=== PATIENT | female | born 1960 | race Caucasian/White ===

== ENCOUNTER 2020-08-22 10:36 | Outpatient (REF) | payer OTHER, SELFPAY ==
[2020-08-22 14:28] LABS: Alanine Aminotransferase 26 U/L (0-31); Albumin Level 3.7 g/dL (3.5-5.0); Alkaline Phosphatase 133 U/L (39-117); Anion Gap 16 (12-20); Aspartate Amino Transferase 65 U/L (5-31); Bilirubin Total 0.6 mg/dL (0.0-1.0); Blood Urea Nitrogen 7 mg/dL (9-16); Carbon Dioxide 20 mmol/L (22-29); Chloride 103 mmol/L (96-108); Cholesterol 97 mg/dL; Estimated Glomerular Filt Rate > 60; Glucose Fasting 115 mg/dL (60-99); HDL Cholesterol 13 mg/dL; LDL Cholesterol Calculated 71 mg/dl; Potassium 4.6 mmol/l (3.3-5.1); Sodium 134 mmol/L (135-145); Total Protein 8.6 g/dL (6.5-8.0); Triglycerides 69 mg/dL
[2020-08-22 14:35] LABS: Creatinine Urine 112.31 mg/dL
[2020-08-22 14:37] LABS: Free T4 (Free Thyroxine) 1.15 ng/dL (0.71-1.85); Thyroid Stimulating Hormone 1.95 mIU/mL (0.32-4.0); Vitamin D 25-OH Total 57.9 ng/mL (>30)
[2020-08-23 07:33] LABS: Glucose Urine UA NEG (NEG); Leukocyte Esterase Urine NEG (NEG); Nitrite Urine NEG (NEG); Urine Blood NEG (NEG); Urine Ketones NEG (NEG); Urine Protein NEG (NEG-TRACE)
[2020-08-23 07:38] LABS: Appearance Urine HAZY; Color Urine YELLOW; UACC Culture Trigger NO
[2020-08-23 19:42] LABS: LDL Cholesterol Direct 81 mg/dL (<100)
[2020-08-24 14:12] LABS: Calcium (PTHI) 9.2 mg/dL (8.6-10.4); PTHI 50 pg/mL (14-64)
[2020-08-30 12:02] LABS: N-Telopeptide 35 (see note); NTXCreaRU 110 mg/dL (20-275)
== END 2020-08-22 10:37 | disposition home or self-care (01) ==
LOC: HO.10HDL 10:36
PROVIDERS: Visit Provider Internal Medicine
DX: Z00.01 Encounter for general adult medical examination with abnormal findings (principal); E21.3 Hyperparathyroidism, unspecified; E08.9 Diabetes mellitus due to underlying condition without complications; E03.8 Other specified hypothyroidism; M81.0 Age-related osteoporosis without current pathological fracture
CPT/HCPCS: 80053; 80061; 81003; 82043; 82306; 82523; 83721; 83970; 84439; 84443

== ENCOUNTER → 2020-08-25 08:29 | Outpatient (BNVA) | payer OTHER, SELFPAY | PROVIDERS: PCP Internal Medicine; Visit Provider Internal Medicine Endocrinology, Diabetes & Metabolism | DX: E13.9 Other specified diabetes mellitus without complications (principal); S36.209S Unspecified injury of unspecified part of pancreas, sequela; M81.8 Other osteoporosis without current pathological fracture; K90.0 Celiac disease; E55.9 Vitamin D deficiency, unspecified; E21.3 Hyperparathyroidism, unspecified; E03.9 Hypothyroidism, unspecified; Z79.4 Long term (current) use of insulin | CPT/HCPCS: 82947; 99214 ==

== ENCOUNTER → 2020-09-07 09:00 | Outpatient (BNVA) | payer OTHER, SELFPAY | PROVIDERS: PCP Internal Medicine; Visit Provider Dietitian, Registered | DX: Z76.89 Persons encountering health services in other specified circumstances (principal) ==

== ENCOUNTER → 2020-09-25 08:58 | Outpatient (BNVA) | payer OTHER, SELFPAY | PROVIDERS: PCP Internal Medicine; Referring Provider Internal Medicine; Visit Provider Internal Medicine Gastroenterology | DX: K86.81 Exocrine pancreatic insufficiency (principal); D50.9 Iron deficiency anemia, unspecified; K90.0 Celiac disease; E55.9 Vitamin D deficiency, unspecified; E13.9 Other specified diabetes mellitus without complications; S36.209S Unspecified injury of unspecified part of pancreas, sequela; F10.11 Alcohol abuse, in remission | CPT/HCPCS: 99212 ==

== ENCOUNTER → 2020-10-19 13:09 | Outpatient (BNVA) | payer OTHER, SELFPAY | PROVIDERS: PCP Internal Medicine; Visit Provider Dietitian, Registered | DX: Z76.89 Persons encountering health services in other specified circumstances (principal) ==

== ENCOUNTER → 2020-11-16 09:36 | Outpatient (BNVA) | payer OTHER, SELFPAY | PROVIDERS: PCP Internal Medicine; Visit Provider Dietitian, Registered | DX: Z76.89 Persons encountering health services in other specified circumstances (principal) ==

== ENCOUNTER → 2020-11-24 08:34 | Outpatient (BNVA) | payer OTHER, SELFPAY | PROVIDERS: PCP Internal Medicine; Visit Provider Internal Medicine Endocrinology, Diabetes & Metabolism | DX: E13.9 Other specified diabetes mellitus without complications (principal); K90.0 Celiac disease; E55.9 Vitamin D deficiency, unspecified; E21.3 Hyperparathyroidism, unspecified; M81.8 Other osteoporosis without current pathological fracture; E03.9 Hypothyroidism, unspecified; S36.209S Unspecified injury of unspecified part of pancreas, sequela | CPT/HCPCS: 82947; 99212 ==

== ENCOUNTER → 2020-12-14 09:04 | Outpatient (BNVA) | payer OTHER, SELFPAY | PROVIDERS: PCP Internal Medicine; Visit Provider Dietitian, Registered ==

== ENCOUNTER → 2021-01-17 08:47 | Outpatient (BNVA) | payer OTHER, SELFPAY | PROVIDERS: PCP Internal Medicine; Visit Provider Internal Medicine Endocrinology, Diabetes & Metabolism | DX: E55.9 Vitamin D deficiency, unspecified (principal); K90.0 Celiac disease; M81.8 Other osteoporosis without current pathological fracture | CPT/HCPCS: 82947; 99212 ==

== ENCOUNTER → 2021-03-05 09:36 | Outpatient (BNVA) | payer OTHER, SELFPAY | PROVIDERS: PCP Internal Medicine; Visit Provider Dietitian, Registered | DX: E10.65 Type 1 diabetes mellitus with hyperglycemia (principal); K90.0 Celiac disease | CPT/HCPCS: 97803 ==

== ENCOUNTER 2021-04-23 09:51 | Outpatient (REF) | payer OTHER, SELFPAY ==
[2021-04-23 11:32] LABS: Alanine Aminotransferase 34 U/L (0-31); Albumin Level 3.6 g/dL (3.5-5.0); Alkaline Phosphatase 147 U/L (39-117); Anion Gap 15 (12-20); Aspartate Amino Transferase 109 U/L (5-31); Bilirubin Total 1.3 mg/dL (0.0-1.0); Blood Urea Nitrogen 10 mg/dL (9-16); Calcium 9.6 mg/dL (8.4-10.2); Carbon Dioxide 22 mmol/L (22-29); Chloride 105 mmol/L (96-108); Cholesterol 66 mg/dL; Estimated Glomerular Filt Rate > 60; Glucose Fasting 110 mg/dL (60-99); HDL Cholesterol 6 mg/dL; LDL Cholesterol Calculated 49 mg/dl; Potassium 4.8 mmol/L (3.3-5.1); Sodium 137 mmol/L (135-145); Total Protein 8.3 g/dL (6.5-8.0); Triglycerides 58 mg/dL
[2021-04-23 11:49] LABS: Vitamin B12 504 pg/mL (200-900)
[2021-04-23 11:55] LABS: Thyroid Stimulating Hormone 3.49 uIU/mL (0.32-4.0)
[2021-04-24 07:12] LABS: LDL Cholesterol Direct 55 mg/dL (<100)
[2021-04-24 13:42] LABS: Calcium (PTHI) 9.4 mg/dL (8.6-10.4); PTHI 33 pg/mL (14-64)
== END 2021-04-23 09:52 | disposition home or self-care (01) ==
LOC: HO.LAB 09:51
PROVIDERS: PCP Internal Medicine; Visit Provider Internal Medicine Endocrinology, Diabetes & Metabolism
DX: E10.65 Type 1 diabetes mellitus with hyperglycemia (principal); E21.3 Hyperparathyroidism, unspecified; M81.8 Other osteoporosis without current pathological fracture
CPT/HCPCS: 36415; 80053; 80061; 82306; 82607; 83721; 83970; 84439; 84443

== ENCOUNTER 2021-04-24 | Outpatient (REF) | payer OTHER, SELFPAY ==
[2021-04-24 13:02] LABS: Creatinine Urine 210.27 mg/dL; Microalbum/Creatinine Ratio Ur 5.7 ug/mg cr
[2021-05-07 07:39] LABS: N-Telopeptide 19; NTXCreaRU 197
== END 2021-04-24 00:01 | disposition home or self-care (01) ==
LOC: HO.LNP
PROVIDERS: Visit Provider Internal Medicine Endocrinology, Diabetes & Metabolism
DX: M81.8 Other osteoporosis without current pathological fracture (principal); E10.65 Type 1 diabetes mellitus with hyperglycemia
CPT/HCPCS: 82043; 82523

== ENCOUNTER → 2021-04-25 09:04 | Outpatient (BNVA) | payer OTHER, SELFPAY | PROVIDERS: PCP Internal Medicine; Visit Provider Internal Medicine Endocrinology, Diabetes & Metabolism | DX: E11.9 Type 2 diabetes mellitus without complications (principal); E21.3 Hyperparathyroidism, unspecified; E03.9 Hypothyroidism, unspecified; M81.0 Age-related osteoporosis without current pathological fracture; K86.9 Disease of pancreas, unspecified; K90.0 Celiac disease; E55.9 Vitamin D deficiency, unspecified; Z88.0 Allergy status to penicillin; Z79.4 Long term (current) use of insulin; Z96.41 Presence of insulin pump (external) (internal); Z46.81 Encounter for fitting and adjustment of insulin pump; Z79.899 Other long term (current) drug therapy | CPT/HCPCS: 82947; 99212 ==

== ENCOUNTER → 2021-06-11 09:27 | Outpatient (BNVA) | payer OTHER, SELFPAY | PROVIDERS: PCP Internal Medicine; Visit Provider Dietitian, Registered | DX: E10.65 Type 1 diabetes mellitus with hyperglycemia (principal); K90.0 Celiac disease | CPT/HCPCS: 97803 ==

== ENCOUNTER → 2021-07-12 13:31 | Outpatient (BNVA) | payer OTHER, SELFPAY | PROVIDERS: PCP Internal Medicine; Visit Provider Internal Medicine | DX: E10.65 Type 1 diabetes mellitus with hyperglycemia (principal); E78.5 Hyperlipidemia, unspecified; E55.9 Vitamin D deficiency, unspecified; I10 Essential (primary) hypertension; M81.8 Other osteoporosis without current pathological fracture; R18.8 Other ascites | CPT/HCPCS: 82947; 83036; 99212 ==

== ENCOUNTER 2021-08-10 09:52 | Outpatient (REF) | payer OTHER, SELFPAY ==
[2021-08-10 11:36] LABS: Basophils Absolute Auto 0.1 X10*3/uL (0.0-0.2); Basophils Percent Auto 1.8 % (0-2); Hemoglobin 9.4 g/dl (12.0-16.0); Imm Gran Abs Auto 0.02 X10*3/uL (0.00-0.03); Imm Gran Pct Auto 0.3 % (0.0-0.4); MANUAL DIFF FLAG SCAN; Monocytes Absolute Auto 0.6 X10*3/uL (0.1-1.2); SCAN SMEAR FLAG 1
[2021-08-10 11:38] LABS: Eosinophils Absolute Auto 0.2 X10*3/uL (0.0-0.4); Eosinophils Percent Auto 3.1 % (0-4); Hematocrit 28.7 % (37-47); Lymphocytes Percent Auto 29.2 % (20-40); Mean Corpuscular HGB Conc 32.8 g/dl (31.0-35.0); Mean Corpuscular Hemoglobin 25.5 pg (27.0-33.0); Monocytes Percent Auto 9.2 % (2-11); Neutrophils Absolute Auto 3.9 X10*3/uL (2.0-8.3); Neutrophils Percent Auto 56.4 % (45-73); PLT CLUMP 1; Red Blood Count 3.68 X10*6/uL (4.20-5.50); Red Cell Distribution Width 22.1 % (11.0-16.0)
[2021-08-10 11:40] LABS: PLT ABN DIST 1
[2021-08-10 11:55] LABS: Platelet Count 172 X10*3/uL (160-400); SLIDE REVIEW VERIFIED; White Blood Count 6.8 X10*3/uL (4.8-10.8)
[2021-08-10 12:04] LABS: Alanine Aminotransferase 33 U/L (0-31); Albumin Level 3.1 g/dL (3.5-5.0); Alkaline Phosphatase 221 U/L (39-117); Anion Gap 14 (12-20); Aspartate Amino Transferase 157 U/L (5-31); Bilirubin Total 1.6 mg/dL (0.0-1.0); Blood Urea Nitrogen 6 mg/dL (9-16); Carbon Dioxide 21 mmol/L (22-29); Chloride 109 mmol/L (96-108); Estimated Glomerular Filt Rate > 60; Glucose Random 97 mg/dL (60-115); Phosphorus 3.1 mg/dL (2.7-4.5); Potassium 3.5 mmol/L (3.3-5.1); Sodium 140 mmol/L (135-145); Total Protein 8.4 g/dL (6.5-8.0)
[2021-08-10 12:07] LABS: Thyroid Stimulating Hormone 3.87 uIU/mL (0.32-4.0)
[2021-08-10 12:09] LABS: Free T4 (Free Thyroxine) 0.82 ng/dL (0.71-1.85); Vitamin D 25-OH Total 15.2 ng/mL (>30)
[2021-08-11 16:32] LABS: LDL Cholesterol Direct 44 mg/dL (<100)
[2021-08-14 16:01] LABS: PTHI 75 pg/mL (14-64)
[2021-08-15 12:31] LABS: Prot Elec - Albumin 3.2 g/dL (3.8-4.8); Prot Elec - Alpha1 0.3 g/dL (0.2-0.3); Prot Elec - Alpha2 0.6 g/dL (0.5-0.9); Prot Elec - Beta 1 0.5 g/dL (0.4-0.6); Prot Elec - Beta 2 0.6 g/dL (0.2-0.5); Prot Elec - Gamma 3.2 g/dL (0.8-1.7); Prot Elec - Total Protein 8.5 g/dL (6.1-8.1)
[2021-08-15 13:51] LABS: Alkaline Phosphatase Bone 13.9 mcg/L (5.6-29.0)
== END 2021-08-10 09:53 | disposition home or self-care (01) ==
LOC: HO.HMGCLDS 09:52
PROVIDERS: PCP Internal Medicine; Visit Provider Internal Medicine
DX: Z00.01 Encounter for general adult medical examination with abnormal findings (principal); E10.65 Type 1 diabetes mellitus with hyperglycemia; D64.9 Anemia, unspecified; E55.9 Vitamin D deficiency, unspecified; E03.9 Hypothyroidism, unspecified; M81.8 Other osteoporosis without current pathological fracture
CPT/HCPCS: 36415; 80053; 82306; 83721; 83970; 84075; 84100; 84165; 84439; 84443; 85025

== ENCOUNTER 2021-08-14 16:05 | Outpatient (REF) | payer OTHER, SELFPAY ==
[2021-08-21 16:41] LABS: N-Telopeptide 22 (see note); NTXCreaRU 110 mg/dL (20-275)
== END 2021-08-14 16:06 | disposition home or self-care (01) ==
LOC: HO.LNP 16:05
PROVIDERS: Visit Provider Internal Medicine
DX: M81.8 Other osteoporosis without current pathological fracture (principal)
CPT/HCPCS: 82523

== ENCOUNTER 2021-09-05 08:55 | Emergency (ER) | payer OTHER, SELFPAY ==
[2021-09-05 09:04] VITALS: BP 110/63; PULSE 108; RESP 28; TEMP 36.6; O2SAT 93; BMI 24.7
--- NOTE | 2021-09-05 10:16 | PC.NURSE ---
nad, sr on monitor, awaiting re eval
--- NOTE | 2021-09-05 10:30 | PC.NURSE ---
nad, sr on monitor, awaiting re md alondra aware
--- NOTE | 2021-09-05 10:31 | PC.NURSE ---
abd distended, wants to have tap and leave, does not want admission, md aware and plans to do paracentisis here, supplies at the bedside,
--- NOTE | 2021-09-05 10:32 | ECG_ITS ---
Test Reason : ABD PAIN Blood Pressure : / mmHG Vent. Rate : 084 BPM Atrial Rate : 084 BPM P-R Int : 146 ms QRS Dur : 086 ms QT Int : 420 ms P-R-T Axes : 052 048 047 degrees QTc Int : 496 ms Sinus rhythm with Premature atrial complexes Prolonged QT Nonspecific T wave abnormality Abnormal ECG T wave amplitude has decreased in Inferior leads Referred By: Gino Taveras Electronically Signed By:CHAVA BELLO MD
--- NOTE | 2021-09-05 10:49 | ED_ITS ---
HPI - Abdominal Pain General Chief Complaint: Abdominal Pain Stated Complaint: abd pain Time Seen by Provider: 09/05/21 10:32 Source: patient and family (Spouse) Mode of arrival: ambulatory Limitations: no limitations History of Present Illness HPI narrative: 60-year-old female with history of alcohol abuse, came in with progressive worsening of abdominal distension, with this patient gets shortness of breath. Patient declined any fever chills or abdominal pain, patient never had a history of fluid aspiration from the abdomen. Related Data Previous Rx's Medication Instructions Recorded blood-glucose meter (OneTouch #1 ea 08/11/20 Verio Reflect Meter) pen needle, diabetic 32 gauge x #400 ea 11/10/20 (BD Licha 2nd Gen Pen Needle) [id number] 2 cap PO QID PRN 30 Days #240 cap 11/24/20 25,000-79,000-105,000 unit capsule,delayed rel (Zenpep) Fiasp U-100 Insulin 100 unit/mL See Rx Instructions SUBCUT DAILY 04/25/21 subcutaneous solution (insulin 30 Days #30 ml NS aspart (niacinamide)) OneTouch Verio test strips (blood #120 ea NS 04/25/21 sugar diagnostic) Tirosint 125 mcg capsule 125 mcg PO DAILY 30 Days #30 cap NS 04/25/21 (levothyroxine) calcium citrate 500 mg PO BID 30 Days #120 tab 04/25/21 cholecalciferol (vitamin D3) 1,250 See Rx Instructions PO QWEEK 30 04/25/21 mcg (50,000 unit) capsule Days #8 cap Allergies Allergy/AdvReac Type Severity Reaction Status Date / Time Penicillins Allergy Mild HIVES Verified 08/10/21 09:20 Review of Systems Review of Systems All other systems are reviewed and are negative Constitutional: Reports as per HPI and Reports no additional constitutional complaints Eyes: Reports as per HPI and Reports no additional eye complaints Reports system reviewed and no additional complaints, except as documented Cardiovascular: Reports as per HPI and Reports no additional cardiovascular complaints Respiratory: Reports as per HPI and Reports no additional respiratory complaints Gastrointestinal: Reports as per HPI and Reports no additional gastrointestinal complaints Genitourinary: Reports no additional female genitourinary complaints Musculoskeletal: Reports no additional musculoskeletal complaints Skin/Breast: Reports system reviewed and no additional complaints, except as docu Psychiatric: Reports no additional psychiatric complaints Endocrine: Reports no additional endocrine complaints Hematologic/Lymphatic: Reports no additional hematologic/lymphatic complaints Allergic/Immunologic: Reports no additional allergic/immunologic complaints Reports system reviewed and no additional complaints, except as documented and Reports Abnormal speech present Physical Exam Vital Signs: Vital Signs: Last Vital Signs Temp 97.8 F 09/05/21 09:04 Pulse 88 09/05/21 12:42 Resp 19 09/05/21 12:42 BP 116/59 L 09/05/21 12:42 Pulse Ox 94 09/05/21 12:42 Oxygen Flow Rate 3 09/05/21 09:04 Body Mass Index 24.7 Vital signs have been reviewed as appeared to be correct. Blood pressure normal. Heart rate elevated. Respiration rate elevated. Temperature normal. Oxygen saturation normal. Appearance: Alert. Oriented X3. No acute distress. Head: Normal external exam. Normocephalic. Atraumatic. No Leone signs noted. No raccoon eyes noted Eyes: PERRLA. EOMI. Conjunctiva and sclera normal. Eyelids normal. ENT: TM's Normal. Pharynx normal. Uvula midline. Moist mucous membranes. No trismus noted. No drooling noted. No muffled voice noted. Neck: Normal inspection. Neck supple. FROM. No adenopathy. Thyroid Normal. No meningeal signs. No neck mass noted. CVS: Normal heart rate and rhythm. Heart sound normal. No murmurs noted. Pulses normal throughout. Respiratory: No respiratory distress. Painless inspiration. Breath sounds normal. No wheezes/rales/rhonchi noted. Chest nontender. No accessory muscle usage noted or decreased air movement noted. Abdomen: Distended, firm, nontender. Bowel sounds normal in all 4 quadrants. No distention noted. No organomegaly noted. No visible injury noted. Back: No CVA tenderness. Full range of motion noted. Skin: Skin warm and dry. Normal skin color. Normal skin turgor. No rashes/lesions/lacerations noted. Extremities: No lower extremity edema. Extremities exhibit normal range of motion. Extremities nontender. Neuro: Oriented X 3. Cranial nerve exam: II-XII are grossly intact No motor deficit. No sensory deficit. Reflexes normal. Course Course Course Narrative: 60-year-old female former alcohol abuser, was never problems and ascites, patient came in for abdominal distension and shortness of breath as a result of abdominal distension, patient is status post peritoneal paracentesis to have meters of returning fluid was drained, patient's stomach is less distended, patient is able to breathe more comfortably. Patient do not want be hospitalized for further management of the new finding of ascites. Patient will follow-up as an outpatient with GI. MDM - Abdominal Pain Medical Records Attestation: I reviewed the patient's medical records. Lab Data Attestation: I reviewed the patient's lab results. Result diagrams: 09/05/21 10:46 09/05/21 10:46 Labs: Lab Results 09/05/21 09/05/21 09/05/21 Range/Units 10:46 10:46 10:46 WBC 9.7 (4.8-10.8) X10*3/uL RBC 3.46 L (4.20-5.50) X10*6/uL Hgb 9.3 L (12.0-16.0) g/dl Hct 26.9 L (37.0-47.0) % MCV 77.7 L (80.0-98.0) fL MCH 26.9 L (27.0-33.0) pg MCHC 34.6 (31.0-35.0) g/dl RDW 25.2 H (11.0-16.0) % Plt Count 250 (160-400) X10*3/uL MPV 11.5 (9.4-12.3) fL Immature Gran % (Auto) 0.3 (0.0-0.4) % Neut % (Auto) 59.9 (45-73) % Lymph % (Auto) 24.4 (20-40) % Wheeler % (Auto) 12.9 H (2-11) % Eos % (Auto) 1.2 (0-4) % Baso % (Auto) 1.3 (0-2) % Lymph # (Auto) 2.4 (1.2-4.9) X10*3/uL Wheeler # (Auto) 1.3 H (0.1-1.2) X10*3/uL Eos # (Auto) 0.1 (0.0-0.4) X10*3/uL Baso # (Auto) 0.1 (0.0-0.2) X10*3/uL Abs Immat Gran (auto) 0.03 (0.00-0.03) X10*3/uL Absolute Neuts (auto) 5.79 (2.0-8.3) x10*3/uL Absolute Nucleated RBC 0.000 (0.0-0.012) X10*3/uL Nucleated RBC % (auto) 0.0 (0.0-0.2) /100WBC Sodium 136 (135-145) mmol/L Potassium 3.6 (3.3-5.1) mmol/L Chloride 96 (96-108) mmol/L Carbon Dioxide 28 (22-29) mmol/L Anion Gap 16 (12-20) BUN 17 H D (9-16) mg/dL Creatinine 1.53 H (0.5-1.4) mg/dL Estim Creat Clear Calc 31.5 Estimated GFR 34 Random Glucose 149 H (60-115) mg/dL Calcium 8.0 L (8.4-10.2) mg/dL Total Bilirubin 3.0 H (0.0-1.0) mg/dL Direct Bilirubin 2.2 H (0.0-0.5) mg/dL AST 200 H (5-31) U/L ALT 52 H (0-31) U/L Alkaline Phosphatase 178 H (39-117) U/L Troponin I High Sens 8.9 (<3.5-17.0) ng/L Total Protein 7.7 (6.5-8.0) g/dL Albumin 2.4 L D (3.5-5.0) g/dL Lipase 12 (8-78) U/L Urine pH Peritoneal WBC X10*3/uL Peritoneal RBC X10*6/uL Periton Neutrophils % Periton Lymphocytes % Peritoneal Monocytes % Peritoneal Eosinophils % Peritoneal Basophils % Peritoneal Other Cells % 09/05/21 09/05/21 Range/Units 11:02 11:02 WBC (4.8-10.8) X10*3/uL RBC (4.20-5.50) X10*6/uL Hgb (12.0-16.0) g/dl Hct (37.0-47.0) % MCV (80.0-98.0) fL MCH (27.0-33.0) pg MCHC (31.0-35.0) g/dl RDW (11.0-16.0) % Plt Count (160-400) X10*3/uL MPV (9.4-12.3) fL Immature Gran % (Auto) (0.0-0.4) % Neut % (Auto) (45-73) % Lymph % (Auto) (20-40) % Wheeler % (Auto) (2-11) % Eos % (Auto) (0-4) % Baso % (Auto) (0-2) % Lymph # (Auto) (1.2-4.9) X10*3/uL Wheeler # (Auto) (0.1-1.2) X10*3/uL Eos # (Auto) (0.0-0.4) X10*3/uL Baso # (Auto) (0.0-0.2) X10*3/uL Abs Immat Gran (auto) (0.00-0.03) X10*3/uL Absolute Neuts (auto) (2.0-8.3) x10*3/uL Absolute Nucleated RBC (0.0-0.012) X10*3/uL Nucleated RBC % (auto) (0.0-0.2) /100WBC Sodium (135-145) mmol/L Potassium (3.3-5.1) mmol/L Chloride (96-108) mmol/L Carbon Dioxide (22-29) mmol/L Anion Gap (12-20) BUN (9-16) mg/dL Creatinine (0.5-1.4) mg/dL Estim Creat Clear Calc Estimated GFR Random Glucose (60-115) mg/dL Calcium (8.4-10.2) mg/dL Total Bilirubin (0.0-1.0) mg/dL Direct Bilirubin (0.0-0.5) mg/dL AST (5-31) U/L ALT (0-31) U/L Alkaline Phosphatase (39-117) U/L Troponin I High Sens (<3.5-17.0) ng/L Total Protein (6.5-8.0) g/dL Albumin (3.5-5.0) g/dL Lipase (8-78) U/L Urine pH TNP Peritoneal WBC 0.051 X10*3/uL Peritoneal RBC < 0.002 X10*6/uL Periton Neutrophils 2 % Periton Lymphocytes 43 % Peritoneal Monocytes 7 % Peritoneal Eosinophils 0 % Peritoneal Basophils 0 % Peritoneal Other Cells 48 % Discharge Plan Discharge Clinical Impression: Cirrhosis, Ascites, Dyspnea Patient Disposition: Home, Self-Care Instructions: Ascites (ED), Paracentesis (DC) Prescriptions: No Action (DME) blood-glucose meter [OneTouch Verio Reflect Meter] Misc See Rx Instructions .ROUTE .MEDSUPPLY Qty: 1 RF: 0 (DME) pen needle, diabetic [BD Licha 2nd Gen Pen Needle] 32 gauge x 5/32 needle See Rx Instructions .MEDSUPPLY Qty: 400 RF: 4 Zenpep 25,000-79,000- 105,000 unit capsule,delayed release(DR/EC) 2 cap PO QID PRN (Reason: Pancreatic insufficiency) 30 Days Qty: 240 RF: 3 (DME) OneTouch Verio test strips Strip See Rx Instructions .ROUTE .MEDSUPPLY Qty: 120 RF: 4 cholecalciferol (vitamin D3) 1,250 mcg (50,000 unit) capsule See Rx Instructions PO QWEEK 30 Days Qty: 8 RF: 6 calcium citrate 250 mg calcium tablet 500 mg PO BID 30 Days Qty: 120 RF: 6 Tirosint 125 mcg capsule 125 mcg PO DAILY 30 Days Qty: 30 RF: 6 Fiasp U-100 Insulin 100 unit/mL solution See Rx Instructions subcut DAILY 30 Days Qty: 30 RF: 6 Referrals: Shelli Roque MD [Physician] - 2 days Lana Stafford MD [Primary Care Provider] - 2 days [facility] Past Medical History Medical History Abdominal ascites Alcoholic pancreatitis Celiac disease Cirrhosis 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 Exocrine pancreatic insufficiency History of alcohol abuse History of DVT in adulthood HLD (hyperlipidemia) HTN (hypertension) Hyperparathyroidism Hypothyroidism (acquired) Microcytic anemia Osteoporosis Vitamin D deficiency Surgical History History of ankle surgery History of esophagogastroduodenoscopy (EGD) Hx of colonoscopy Family History Family History Father Cancer Mother Renal failure Brother Renal failure Other Substance use disorder Social History Social History Household Members: Spouse Housing: House Alcohol intake: current Alcohol intake frequency: 0-2 drinks per day Alcohol type: wine Patient Tobacco Use Status: Never used Tobacco Advance Directives: No Patient : No service: No Current 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
[2021-09-05 10:50] VITALS: BP 121/67; PULSE 85; RESP 18; O2SAT 95
[2021-09-05 10:52] LABS: MANUAL DIFF FLAG NO
[2021-09-05 10:53] LABS: Basophils Absolute Auto 0.1 X10*3/uL (0.0-0.2); Basophils Percent Auto 1.3 % (0-2); Eosinophils Absolute Auto 0.1 X10*3/uL (0.0-0.4); Eosinophils Percent Auto 1.2 % (0-4); Hematocrit 26.9 % (37.0-47.0); Hemoglobin 9.3 g/dl (12.0-16.0); Imm Gran Abs Auto 0.03 X10*3/uL (0.00-0.03); Imm Gran Pct Auto 0.3 % (0.0-0.4); Lymphocytes Absolute Auto 2.4 X10*3/uL (1.2-4.9); Lymphocytes Percent Auto 24.4 % (20-40); Mean Corpuscular HGB Conc 34.6 g/dl (31.0-35.0); Mean Corpuscular Hemoglobin 26.9 pg (27.0-33.0); Mean Corpuscular Volume 77.7 fL (80.0-98.0); Mean Platelet Volume 11.5 fL (9.4-12.3); Monocytes Absolute Auto 1.3 X10*3/uL (0.1-1.2); Monocytes Percent Auto 12.9 % (2-11); Neutrophils Absolute Auto 5.79 x10*3/uL (2.0-8.3); Neutrophils Percent Auto 59.9 % (45-73); Platelet Count 250 X10*3/uL (160-400); Red Blood Count 3.46 X10*6/uL (4.20-5.50); Red Cell Distribution Width 25.2 % (11.0-16.0); White Blood Count 9.7 X10*3/uL (4.8-10.8)
[2021-09-05] MEDS: Albumin Human 25 % 100 ML IV (11:00)
--- NOTE | 2021-09-05 11:09 | PC.NURSE ---
2.5 liters drained, tolerated well, sob relieved, albumin infusing, md removed drain, nad no complaints
[2021-09-05 11:12] LABS: Troponin-I High Sensitivity 8.9 ng/L (<3.5-17.0)
[2021-09-05 11:16] LABS: Alanine Aminotransferase 52 U/L (0-31); Albumin Level 2.4 g/dL (3.5-5.0); Alkaline Phosphatase 178 U/L (39-117); Anion Gap 16 (12-20); Aspartate Amino Transferase 200 U/L (5-31); Bilirubin Direct 2.2 mg/dL (0.0-0.5); Blood Urea Nitrogen 17 mg/dL (9-16); Carbon Dioxide 28 mmol/L (22-29); Chloride 96 mmol/L (96-108); Creatinine Clr Calc Pharmacy 31.5; Estimated Glomerular Filt Rate 34; Glucose Random 149 mg/dL (60-115); Lipase 12 U/L (8-78); Potassium 3.6 mmol/L (3.3-5.1); Sodium 136 mmol/L (135-145); Total Protein 7.7 g/dL (6.5-8.0)
[2021-09-05 11:30] LABS: MN% 97.4 %; PMN% 2.6 %; WBC Peritoneal Fluid 0.051 X10*3/uL
[2021-09-05 11:31] LABS: RBC Peritoneal Fluid < 0.002 X10*6/uL
[2021-09-05 12:11] LABS: Basophils Peritoneal Fl 0 %; Eosinophils Peritoneal Fl 0 %; Lymphocyte Peritoneal Fl 43 %; Monocytes Peritoneal Fl 7 %; Neutrophils Peritoneal Fluid 2 %; Other Peritioneal Fl 48 %
[2021-09-05 12:12] LABS: BF Shift QC OK YES; Man Diluent Bkgrd OK YES
[2021-09-05 12:42] VITALS: BP 116/59; PULSE 88; RESP 19; O2SAT 94
[2021-09-06 12:00] LABS: Amylase Peritoneal Fluid 14
[2021-09-07 11:32] LABS: Albumin Peritoneal Fluid 0.3; Total Protein Peritoneal Fluid 0.9
[2021-09-07 11:33] LABS: Glucose Peritoneal Fluid 176; LDH Peritoneal Fluid 66
== END 2021-09-05 12:53 | disposition home or self-care (01) ==
PROVIDERS: Emergency Provider Emergency Medicine; PCP Internal Medicine
DX: R18.8 Other ascites (principal); K74.60 Unspecified cirrhosis of liver; R06.00 Dyspnea, unspecified; F10.10 Alcohol abuse, uncomplicated; E11.9 Type 2 diabetes mellitus without complications; I10 Essential (primary) hypertension
CPT/HCPCS: 36415; 80048; 80076; 82042; 82150; 82945; 83615; 83690; 84157; 84484; 85025; 89051; 93005; 96365; 99284; P9047

== ENCOUNTER 2021-09-05 22:51 | Inpatient (IN) | payer OTHER, SELFPAY ==
--- NOTE | ~2021-09-05 | CT_ITS ---
EXAMINATION: CT ABDOMEN AND PELVIS WITHOUT CONTRAST CLINICAL INFORMATION: Question intra-abdominal bleed COMPARISON: 09/06/2021 TECHNIQUE: Multidetector volumetric imaging was performed from the superior aspect of the liver through the pubic symphysis. Sagittal and coronal reformatted images were obtained on the technologist's workstation. This CT examination was performed using dose optimization techniques as appropriate, variously including the following: *Automated exposure control *Adjustment of mA and/or kV according to patient size (this includes techniques or standardized protocols for targeted exams where dose is matched to indication/reason for exam; i.e. extremities or head) *Use of iterative reconstruction technique DLP: 584 mGy-cm FINDINGS: LUNG BASES: Again seen are patchy foci of groundglass and consolidative opacities in the bases bilaterally. There is partial collapse of the lower lobes. Trace left pleural effusion. LIVER, GALLBLADDER, AND BILIARY TREE: Marked hepatic steatosis with focal fatty sparing around the gallbladder fossa. No focal lesions, though sensitivity is limited by the absence of intravenous contrast material. No biliary ductal dilatation. The gallbladder is borderline hydropic. Radiodense material dependently within the gallbladder likely corresponds to sludge. No appreciable pericholecystic inflammatory change. PANCREAS: Markedly atrophic pancreas. Dystrophic calcifications again noted at the pancreatic head with small focus of surrounding soft tissue attenuation.. SPLEEN: Atrophic ADRENAL GLANDS: Unremarkable. KIDNEYS AND URETERS: The kidneys are normal in size, shape, and attenuation. No hydronephrosis, hydroureter, or calculi seen. No perinephric stranding. BLADDER: Kitchen catheter terminates in the bladder. Iatrogenic gas is also present within the bladder. GASTROINTESTINAL TRACT: Moderate to large volume of intraperitoneal ascites is again noted, similar to prior. No significant change in the density of the ascites, relatively simple and without evidence of intraperitoneal hemorrhage. No weightbearing hematocrit levels. No intraperitoneal air. Stomach, small bowel, and colon are normal in caliber. There is mesenteric edema. Wall thickening at the small bowel loops is likely related to the underlying peroneal ascites. No focal wall thickening. Colon is decompressed and unremarkable. No intraperitoneal free air. ABDOMINAL WALL: Anasarca, new from prior. The hematoma in the left internal oblique muscle is increased in size from prior, now measuring 20.3 x 18.2 x 7.0 cm. This now extends inferiorly toward the level of the pubic symphysis and terminates superiorly near the inferior costal margin. LYMPH NODES: There are multiple prominent mesenteric lymph nodes without em adenopathy by size criteria. VASCULAR: Calcific atherosclerosis is present in the abdominal aorta and iliac arteries. No aneurysmal dilatation. PELVIC VISCERA: The uterus and adnexa are unremarkable. OSSEOUS STRUCTURES: Sigmoid scoliosis is present in the thoracolumbar spine with mild to moderate multilevel degenerative disc disease. There is mild osteophytes in the hips. No acute osseous lesions. CT/CT abdomen pelvis wo con IMPRESSION: 1. A large intramuscular hematoma within the left internal oblique muscle has increased in size from prior, indicative of continued bleeding. 2. Moderate to large volume of intraperitoneal ascites is unchanged from prior. No evidence of intraperitoneal bleeding. 3. Multifocal groundglass and consolidative opacities in the lungs, concerning for viral pneumonia. 4. Marked hepatic steatosis. 5. Dystrophic calcifications in the head of the pancreas are more pronounced as compared to the CT from 2019. These may correspond to the residua of prior pancreatitis, but are not specific.
--- NOTE | ~2021-09-05 | XR_ITS ---
EXAMINATION: XR CHEST CLINICAL INFORMATION: Line placement. COMPARISON: Chest CT and radiograph dated 09/06/2021 TECHNIQUE: Frontal view of the chest was obtained. FINDINGS: Left IJ central venous catheter tip terminates at the right cavoatrial junction. Patchy multifocal airspace opacities in both lungs are slightly more pronounced as compared to prior. No pneumothorax or pleural effusion. Cardiac and mediastinal contours are normal. No acute osseous findings. XR/XR chest 1V IMPRESSION: Left IJ central venous catheter tip terminates at the cavoatrial junction. Slightly increased patchy multifocal airspace disease.
--- NOTE | ~2021-09-05 | CT_ITS ---
EXAMINATION: CT CHEST WITHOUT CONTRAST CT ABDOMEN AND PELVIS WITHOUT CONTRAST CLINICAL INFORMATION: r/o pna . Left lower quadrant pain and large ecchymosis. COMPARISON: 09/22/2019. TECHNIQUE: Multidetector volumetric imaging was performed from the thoracic inlet through the pubic symphysis without intravenous contrast. Sagittal and coronal images were reformatted. This CT examination was performed using dose optimization techniques as appropriate, variously including the following: *Automated exposure control *Adjustment of mA and/or kV according to patient size (this includes techniques or standardized protocols for targeted exams where dose is matched to indication/reason for exam; i.e. extremities or head) *Use of iterative reconstruction technique DOSE: 664 mGy-Centimeters FINDINGS: -CHEST- LUNG: Patchy groundglass opacities are present in both lungs in an upper lobe predominant distribution with associated interstitial thickening, consistent with a crazy paving type appearance. Areas of dense platelike atelectasis are present in the lower lobes with segmental collapse at multiple basilar segments and at the lateral segment of the right middle lobe. Central airways are clear. No pulmonary nodules. MEDIASTINUM: Calcifications are present at the mitral and aortic valves. Heart is normal in size. Thyroid gland is atrophic. No mediastinal or hilar adenopathy. PERICARDIUM/PLEURA: No significant effusion. No pleural mass or thickening. CHEST WALL/AXILLA: No acute osseous findings. Multilevel degenerative disc disease in the thoracic spine. -ABDOMEN/PELVIS- LIVER, GALLBLADDER, BILIARY TREE: Marked hepatic steatosis with focal fatty sparing around the gallbladder fossa. No focal lesions, though sensitivity is limited by the absence of intravenous contrast. No appreciable biliary ductal dilatation. The gallbladder is borderline hydropic with no evidence of radiopaque gallstones, gallbladder wall thickening, or obvious pericholecystic inflammatory changes. PANCREAS: Markedly atrophic pancreas. New dystrophic calcifications are present in the pancreatic head. There is surrounding soft tissue attenuation in this region. SPLEEN: Atrophic. ADRENAL GLANDS: Normal; no mass. KIDNEYS AND URETERS: The kidneys are normal in size, shape, and attenuation. No hydronephrosis, hydroureter, or calculi seen. No perinephric stranding. BLADDER: Unremarkable. GASTROINTESTINAL TRACT: Moderate to large volume of intraperitoneal ascites, most notably in the pelvis on the paracolic gutters. Stomach, small bowel, and colon are normal in caliber. There is mesenteric edema. Wall thickening at the small bowel loops is likely related to the underlying peroneal tenosynovitis. No focal wall thickening. Colon is decompressed and unremarkable. No intraperitoneal free air. ABDOMINAL WALL: There is an acute hematoma within the left abdominal wall between the left inferior costal margin in the left iliac crest, likely within the internal oblique muscle, measuring 10 x 11 x 5 cm with a hematocrit level. There is mild surrounding soft tissue edema. VASCULATURE: Calcific atherosclerosis is present in the abdominal aorta and iliac arteries. No aneurysmal dilatation. LYMPH NODES: There are multiple prominent mesenteric lymph nodes without em adenopathy by size criteria. PELVIC VISCERA: The uterus and adnexa are unremarkable. OSSEUS STRUCTURES: Sigmoid scoliosis is present in the thoracolumbar spine with mild to moderate multilevel degenerative disc disease. There is mild osteophytes in the hips. No acute osseous lesions. CT/CT abdomen pelvis wo con IMPRESSION: 1. Patchy multifocal groundglass opacities throughout both lungs, concerning for viral pneumonia such as COVID. 2. Acute intramuscular hematoma within the left internal oblique muscle measuring 10 x 11 x 5 mm and containing a hematocrit level. 3. Moderate to large volume of intraperitoneal ascites with associated mesenteric edema. Generalized small bowel wall thickening is likely related to the ascites. 4. Marked hepatic steatosis. 5. New dystrophic calcifications in the head of the pancreas, more pronounced as compared to the prior CT from 2019. These may correspond to the residual pancreatitis, but are not specific.
--- NOTE | ~2021-09-05 | XR_ITS ---
EXAMINATION: XR CHEST CLINICAL INFORMATION: Shortness of breath. COMPARISON: 09/22/2019 TECHNIQUE: Frontal view of the chest was obtained. FINDINGS: Hazy airspace opacities are present within the right lung bases bilaterally. There is associated volume loss. No pneumothorax or pleural effusion. Cardiac and mediastinal contours are normal. Pulmonary are structures unremarkable. No acute osseous findings. XR/XR chest 1V IMPRESSION: Hazy airspace opacities in the lung bases and right midlung which may correspond in part to atelectasis. A superimposed viral or atypical pneumonia also have this appearance.
--- NOTE | ~2021-09-05 | XR_ITS ---
EXAMINATION: XR CHEST CLINICAL INFORMATION: Hypoxemia. COMPARISON: Same date at 1:01 AM. TECHNIQUE: Frontal view of the chest was obtained. FINDINGS: Left IJ central venous catheter tip terminates over the cavoatrial junction. Lung volumes are low. Patchy bilateral airspace disease are unchanged as compared to prior. No pleural effusion or pneumothorax. Cardiac and mediastinal contours are unchanged. No acute osseous findings. XR/XR chest 1V IMPRESSION: Unchanged patchy bilateral multifocal airspace disease.
[2021-09-05 22:54] VITALS: BP 130/64; PULSE 106; RESP 18; TEMP 36.6; O2SAT 91; BMI 25.4
[2021-09-06] VITALS (55 sets, daily range): BP systolic 82–122; BP diastolic 41–70; PULSE 82–109; RESP 16–36; TEMP 36.6–38.2; O2SAT 91–100; BMI 29.4; BMI 26.0
--- NOTE | 2021-09-06 00:30 | PC.NURSE ---
RN wheeled patient to ED 1H from waiting room where she was noted to be sitting in a wheelchair with NC in place; visibly uncomfortable. Stop in triage to assess O2 saturation to assess for improvement with O2 via NC at 2LPM with O2 sat still found to be 91%. Pt assisted out of wheelchair to bed with a 2 person assist, moaning and expressed discomfort to her abdomen. Md Lozada to bedside immediately upon arrival to 1H
--- NOTE | 2021-09-06 00:37 | ED.GENADULT ---
HPI - General Adult General Chief complaint: Dyspnea Stated complaint: lower left abd pain here this am Time Seen by Provider: 09/06/21 00:26 Source: patient Mode of arrival: ambulatory Limitations: no limitations History of Present Illness HPI narrative: Patient comes to the emergency room complaining of left lower quadrant pain and shortness of breath. Patient is known to have ascites secondary to alcohol abuse. Patient was seen this morning, had a paracentesis and 2.5 L where removed. Patient left against medical advice. When patient got home, she noticed that there was an ecchymosis on her hip. Patient denies falling. Patient states that since then she has been having worsening left lower quadrant pain, but it does not hurt over the site where the paracentesis catheter was inserted. Related Data Previous Rx's Medication Instructions Recorded blood-glucose meter (OneTouch #1 ea 08/11/20 Verio Reflect Meter) pen needle, diabetic 32 gauge x #400 ea 11/10/20 (BD Licha 2nd Gen Pen Needle) [id number] 2 cap PO QID PRN 30 Days #240 cap 11/24/20 25,000-79,000-105,000 unit capsule,delayed rel (Zenpep) Fiasp U-100 Insulin 100 unit/mL See Rx Instructions SUBCUT DAILY 04/25/21 subcutaneous solution (insulin 30 Days #30 ml NS aspart (niacinamide)) OneTouch Verio test strips (blood #120 ea NS 04/25/21 sugar diagnostic) Tirosint 125 mcg capsule 125 mcg PO DAILY 30 Days #30 cap NS 04/25/21 (levothyroxine) calcium citrate 500 mg PO BID 30 Days #120 tab 04/25/21 cholecalciferol (vitamin D3) 1,250 See Rx Instructions PO QWEEK 30 04/25/21 mcg (50,000 unit) capsule Days #8 cap Allergies Allergy/AdvReac Type Severity Reaction Status Date / Time Penicillins Allergy Mild HIVES Verified 08/10/21 09:20 Review of Systems Review of Systems: Constitutional : No Weight loss, No Fever, No Chills, No Night Sweats, No Fatigue, No Malaise ENT/Mouth : No Hearing loss, No Ear Pain, No Nasal Congestion, No Sinus Pain, No Hoarseness, No sore throat, No Rhinorrhea, No Swallowing Difficulty, complaining of a nosebleed that started on arrival to the ED Eyes: No Eye Pain, No Swelling, No Redness, No Foreign Body, No Discharge, No Vision Changes Cardiovascular : No Chest Pain, No SOB, No Dyspnea on Exertion, No Orthopnea, No Edema, No Palpitations Respiratory : No Cough, No Sputum, No Wheezing, No Smoke Exposure, No Dyspnea Gastrointestinal : No Nausea, No Vomiting, No Diarrhea, No Constipation, complaining of left lower quadrant pain and ecchymosis to the left lower quadrant Genitourinary : no irregular bleeding, No Dysuria, No Urinary Frequency, No Hematuria, No Urinary Incontinence, No Urgency, No Flank Pain, No Urinary Flow Changes, No Hesitancy Musculoskeletal : No joint pain, No Myalgias, No Joint Swelling Skin : Complaining of ecchymosis in the left lower quadrant/left hip Neuro : No Weakness, No Numbness, No Paresthesias, No Loss of Consciousness, No Dizziness, No Headache Psych : No Anxiety/Panic, No Depression, No SI/HI/AH/VH, No Social Issues, Heme/Lymph: No Bruising, No Bleeding,No Lymphadenopathy Endocrine : No Polyuria, No Polydipsia, No Temperature Intolerance [facility] Past Medical History Medical History Abdominal ascites Alcoholic pancreatitis Celiac disease Cirrhosis 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 Exocrine pancreatic insufficiency History of alcohol abuse History of DVT in adulthood HLD (hyperlipidemia) HTN (hypertension) Hyperparathyroidism Hypothyroidism (acquired) Microcytic anemia Osteoporosis Vitamin D deficiency Surgical History History of ankle surgery History of esophagogastroduodenoscopy (EGD) Hx of colonoscopy Family History Family History Father Cancer Mother Renal failure Brother Renal failure Other Substance use disorder Social History Social History Household Members: Spouse Housing: House Alcohol intake: current Alcohol intake frequency: former alcohol drinker Alcohol type: wine Patient Tobacco Use Status: Never used Tobacco Use of substances other than those prescribed or required for medical reasons: No Advance Directives: No Advance Directives Information Provided: Yes service: No 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 Oriented X3. In pain, looks very uncomfortable Eyes: Pupils equal, round and reactive to light. Icteric sclera bilateral ENT: Pharynx normal. Neck: Normal inspection. Neck supple. No lymph nodes noted. No crepitus CVS: Normal heart rate and rhythm. Pulses normal. Normal S1 and S2 Respiratory: No respiratory distress. Mild bibasilar crackles, No Wheezing. No rales Abdomen: Soft , distended, no ecchymosis around the paracentesis site, no pain to palpation in that side. Patient has a large ecchymosis in the left lower quadrant/left hip radiating into the flank left side, swollen, pain to palpation Skin: Skin warm and dry. Icteric, Extremities: No lower extremity edema. No Lacerations. No Rash Neuro: Oriented X 3. No motor deficit. No sensory deficit. Moving all extermities. No slurred speech. Course Course Course Narrative: Epistaxis resolved after nasal Afrin Intermuscular hematoma in the left internal oblique likely secondary status post paracentesis. Patient's hemoglobin and hematocrit remained stable. Patient does have a supratherapeutic INR 10.5 likely secondary to chronic liver pathology, alcohol induced. Patient was given fresh frozen plasma and vitamin K. I discussed the patient with our radiologist on-call. At this time, embolization is not necessary, patient's H&H is stable. Patient has an intramuscular hematoma in the left oblique muscle. Patient's vitals stable. I also consulted pharmacy on-call, Kcentra would not be of benefit to the patient. Patient's chest x-ray shows patchy multifocal ground-glass opacities, likely viral pneumonia, patient tested negative for COVID-19. However, on patient's arrival patient's oxygen saturation was 91 on room air, patient usually does not use oxygen. Sepsis is not suspected, patient being treated empirically with antibiotics. I discussed the pt with Dr. Lozada, pt being admitted repeat H&H pending Patient's H&H repeat shows a hemoglobin of 7 hematocrit of 20. I discussed the patient in the CT scan with Dr. Sawyer, unlikely to be surgical. Advise is to treat symptomatically. Patient is in the process of receiving fresh frozen plasma and 1 unit of packed red blood cells. Patient remained stable, awake, alert and oriented x3, heart rate 95, blood pressure 104/62 Medical Decision Making Lab Data Result diagrams: 09/06/21 04:30 09/06/21 01:08 Labs: Lab Results 09/06/21 09/06/21 09/06/21 Range/Units 01:08 01:08 01:08 WBC 10.6 (4.8-10.8) X10*3/uL RBC 3.60 L (4.20-5.50) X10*6/uL Hgb 9.6 L (12.0-16.0) g/dl Hct 28.1 L (37.0-47.0) % MCV 78.1 L (80.0-98.0) fL MCH 26.7 L (27.0-33.0) pg MCHC 34.2 (31.0-35.0) g/dl RDW 25.3 H (11.0-16.0) % Plt Count 267 (160-400) X10*3/uL MPV 11.2 (9.4-12.3) fL Immature Gran % (Auto) 0.4 (0.0-0.4) % Neut % (Auto) 61.6 (45-73) % Lymph % (Auto) 25.2 (20-40) % [place] % (Auto) 10.4 (2-11) % Eos % (Auto) 1.1 (0-4) % Baso % (Auto) 1.3 (0-2) % Lymph # (Auto) 2.7 (1.2-4.9) X10*3/uL [place] # (Auto) 1.1 (0.1-1.2) X10*3/uL Eos # (Auto) 0.1 (0.0-0.4) X10*3/uL Baso # (Auto) 0.1 (0.0-0.2) X10*3/uL Abs Immat Gran (auto) 0.04 H (0.00-0.03) X10*3/uL Absolute Neuts (auto) 6.49 (2.0-8.3) x10*3/uL Absolute Nucleated RBC 0.000 (0.0-0.012) X10*3/uL Nucleated RBC % (auto) 0.0 (0.0-0.2) /100WBC PT (9.9-13.0) SEC INR (0.9-1.1) Sodium 137 (135-145) mmol/L Potassium 3.6 (3.3-5.1) mmol/L Chloride 96 (96-108) mmol/L Carbon Dioxide 27 (22-29) mmol/L Anion Gap 18 (12-20) BUN 17 H (9-16) mg/dL Creatinine 1.53 H (0.5-1.4) mg/dL Estim Creat Clear Calc 30.6 Estimated GFR 34 Random Glucose 197 H (60-115) mg/dL Calcium 8.2 L (8.4-10.2) mg/dL Magnesium 1.5 L (1.6-2.6) mg/dL Total Bilirubin 4.2 H (0.0-1.0) mg/dL Direct Bilirubin 2.8 H (0.0-0.5) mg/dL AST 191 H (5-31) U/L ALT 49 H (0-31) U/L Alkaline Phosphatase 175 H (39-117) U/L Troponin I High Sens 10.2 (<3.5-17.0) ng/L Total Protein 8.1 H (6.5-8.0) g/dL Albumin 2.9 L D (3.5-5.0) g/dL Ethyl Alcohol mg/dL COVID-19 (JOY) (Negative) COVID-19 Clin Com Blood Type Antibody Screen Crossmatch 09/06/21 09/06/21 09/06/21 Range/Units 01:08 01:08 01:08 WBC (4.8-10.8) X10*3/uL RBC (4.20-5.50) X10*6/uL Hgb (12.0-16.0) g/dl Hct (37.0-47.0) % MCV (80.0-98.0) fL MCH (27.0-33.0) pg MCHC (31.0-35.0) g/dl RDW (11.0-16.0) % Plt Count (160-400) X10*3/uL MPV (9.4-12.3) fL Immature Gran % (Auto) (0.0-0.4) % Neut % (Auto) (45-73) % Lymph % (Auto) (20-40) % [place] % (Auto) (2-11) % Eos % (Auto) (0-4) % Baso % (Auto) (0-2) % Lymph # (Auto) (1.2-4.9) X10*3/uL [place] # (Auto) (0.1-1.2) X10*3/uL Eos # (Auto) (0.0-0.4) X10*3/uL Baso # (Auto) (0.0-0.2) X10*3/uL Abs Immat Gran (auto) (0.00-0.03) X10*3/uL Absolute Neuts (auto) (2.0-8.3) x10*3/uL Absolute Nucleated RBC (0.0-0.012) X10*3/uL Nucleated RBC % (auto) (0.0-0.2) /100WBC PT 125.3 H (9.9-13.0) SEC INR 10.5 H* (0.9-1.1) Sodium (135-145) mmol/L Potassium (3.3-5.1) mmol/L Chloride (96-108) mmol/L Carbon Dioxide (22-29) mmol/L Anion Gap (12-20) BUN (9-16) mg/dL Creatinine (0.5-1.4) mg/dL Estim Creat Clear Calc Estimated GFR Random Glucose (60-115) mg/dL Calcium (8.4-10.2) mg/dL Magnesium (1.6-2.6) mg/dL Total Bilirubin (0.0-1.0) mg/dL Direct Bilirubin (0.0-0.5) mg/dL AST (5-31) U/L ALT (0-31) U/L Alkaline Phosphatase (39-117) U/L Troponin I High Sens (<3.5-17.0) ng/L Total Protein (6.5-8.0) g/dL Albumin (3.5-5.0) g/dL Ethyl Alcohol < 10 mg/dL COVID-19 (JOY) Negative (Negative) COVID-19 Clin Com See Note Blood Type Antibody Screen Crossmatch 09/06/21 09/06/21 Range/Units 02:56 04:30 WBC (4.8-10.8) X10*3/uL RBC (4.20-5.50) X10*6/uL Hgb 7.0 L* D (12.0-16.0) g/dl Hct 20.3 L* D (37.0-47.0) % MCV (80.0-98.0) fL MCH (27.0-33.0) pg MCHC (31.0-35.0) g/dl RDW (11.0-16.0) % Plt Count (160-400) X10*3/uL MPV (9.4-12.3) fL Immature Gran % (Auto) (0.0-0.4) % Neut % (Auto) (45-73) % Lymph % (Auto) (20-40) % [place] % (Auto) (2-11) % Eos % (Auto) (0-4) % Baso % (Auto) (0-2) % Lymph # (Auto) (1.2-4.9) X10*3/uL [place] # (Auto) (0.1-1.2) X10*3/uL Eos # (Auto) (0.0-0.4) X10*3/uL Baso # (Auto) (0.0-0.2) X10*3/uL Abs Immat Gran (auto) (0.00-0.03) X10*3/uL Absolute Neuts (auto) (2.0-8.3) x10*3/uL Absolute Nucleated RBC (0.0-0.012) X10*3/uL Nucleated RBC % (auto) (0.0-0.2) /100WBC PT (9.9-13.0) SEC INR (0.9-1.1) Sodium (135-145) mmol/L Potassium (3.3-5.1) mmol/L Chloride (96-108) mmol/L Carbon Dioxide (22-29) mmol/L Anion Gap (12-20) BUN (9-16) mg/dL Creatinine (0.5-1.4) mg/dL Estim Creat Clear Calc Estimated GFR Random Glucose (60-115) mg/dL Calcium (8.4-10.2) mg/dL Magnesium (1.6-2.6) mg/dL Total Bilirubin (0.0-1.0) mg/dL Direct Bilirubin (0.0-0.5) mg/dL AST (5-31) U/L ALT (0-31) U/L Alkaline Phosphatase (39-117) U/L Troponin I High Sens (<3.5-17.0) ng/L Total Protein (6.5-8.0) g/dL Albumin (3.5-5.0) g/dL Ethyl Alcohol mg/dL COVID-19 (JOY) (Negative) COVID-19 Clin Com Blood Type O Positive Antibody Screen NEGATIVE Crossmatch See Detail Critical Care Time Critical Care Time Critical Care Time: Yes Total Critical Care Time: 90 Attestation: 90 minutes were spent in direct patient care, stabilization, consult. Discharge Plan Discharge Clinical Impression: Abdominal pain, Epistaxis, Hematoma of abdominal wall, Supratherapeutic INR, Pneumonia Patient Disposition: Admitted As Inpatient
[2021-09-06 01:13] LABS: MANUAL DIFF FLAG NO
[2021-09-06] MEDS: Morphine Sulfate 2 MG/ML CARTRIDGE IVPUSH (01:15)
[2021-09-06 01:16] LABS: Basophils Absolute Auto 0.1 X10*3/uL (0.0-0.2); Basophils Percent Auto 1.3 % (0-2); Eosinophils Absolute Auto 0.1 X10*3/uL (0.0-0.4); Eosinophils Percent Auto 1.1 % (0-4); Hematocrit 28.1 % (37.0-47.0); Hemoglobin 9.6 g/dl (12.0-16.0); Imm Gran Abs Auto 0.04 X10*3/uL (0.00-0.03); Imm Gran Pct Auto 0.4 % (0.0-0.4); Lymphocytes Absolute Auto 2.7 X10*3/uL (1.2-4.9); Lymphocytes Percent Auto 25.2 % (20-40); Mean Corpuscular HGB Conc 34.2 g/dl (31.0-35.0); Mean Corpuscular Hemoglobin 26.7 pg (27.0-33.0); Mean Corpuscular Volume 78.1 fL (80.0-98.0); Mean Platelet Volume 11.2 fL (9.4-12.3); Monocytes Absolute Auto 1.1 X10*3/uL (0.1-1.2); Monocytes Percent Auto 10.4 % (2-11); Neutrophils Absolute Auto 6.49 x10*3/uL (2.0-8.3); Neutrophils Percent Auto 61.6 % (45-73); Platelet Count 267 X10*3/uL (160-400); Red Cell Distribution Width 25.3 % (11.0-16.0); White Blood Count 10.6 X10*3/uL (4.8-10.8)
[2021-09-06] MEDS: Oxymetazoline HCl 0.05 % Nasal 15 ML SPRAY 2 SPRAY NOSTRIL-B (01:16)
[2021-09-06 01:27] LABS: COVID-19 Test Negative (Negative); IDNOW Serial# 9DD0AD1C
[2021-09-06 01:31] LABS: Ethanol < 10 mg/dL
[2021-09-06 01:35] LABS: Troponin-I High Sensitivity 10.2 ng/L (<3.5-17.0)
[2021-09-06 01:40] LABS: Alanine Aminotransferase 49 U/L (0-31); Albumin Level 2.9 g/dL (3.5-5.0); Alkaline Phosphatase 175 U/L (39-117); Anion Gap 18 (12-20); Aspartate Amino Transferase 191 U/L (5-31); Bilirubin Direct 2.8 mg/dL (0.0-0.5); Bilirubin Total 4.2 mg/dL (0.0-1.0); Blood Urea Nitrogen 17 mg/dL (9-16); Calcium 8.2 mg/dL (8.4-10.2); Carbon Dioxide 27 mmol/L (22-29); Chloride 96 mmol/L (96-108); Creatinine Clr Calc Pharmacy 30.6; Estimated Glomerular Filt Rate 34; Glucose Random 197 mg/dL (60-115); Magnesium 1.5 mg/dL (1.6-2.6); Potassium 3.6 mmol/L (3.3-5.1); Sodium 137 mmol/L (135-145); Total Protein 8.1 g/dL (6.5-8.0)
[2021-09-06 01:43] LABS: Prothrombin Time 125.3 SEC (9.9-13.0)
[2021-09-06 01:58] LABS: INTERNATIONAL NORM RATIO 10.5 (0.9-1.1)
--- NOTE | 2021-09-06 02:22 | PC.NURSE ---
bruising to left flank at site of taping earlier on 09/05/21 nose bleed has stopped. inr elevated pt is not on blood thinners. provider at bedside and seen the bruising.
--- NOTE | 2021-09-06 02:48 | PC.NURSE ---
verbal order per dr trivedi hold the vit k till report comes back from ct. pt on bed colmenares and is unable to void
[2021-09-06] MEDS: Phytonadione (Vit K1) 10 MG in 0.9 % Sodium Chloride 50 ML 51 MG IV (03:00)
[2021-09-06] MEDS: Morphine Sulfate 4 MG/ML CARTRIDGE IVPUSH (04:04)
[2021-09-06] MEDS: cefTRIAXone sodium 1 GM in 0.9 % Sodium Chloride 50 ML IV (04:07)
[2021-09-06] MEDS: 0.9 % Sodium Chloride 1,000 ML 999 ML IVCONT (04:11)
[2021-09-06 04:46] LABS: Hematocrit 20.3 % (37.0-47.0)
--- NOTE | 2021-09-06 05:13 | PC.NURSE ---
CALLED SURGERY ANSWERING SERVICE @ [phone]
--- NOTE | 2021-09-06 05:17 | PC.NURSE ---
first unit of ffp infused with no complications, pt marysol well with no s/s of resp distress.
--- NOTE | 2021-09-06 06:32 | PC.NURSE ---
azithromycon on pause till blood products are completed, ns ivf is on pause as well. pt is marysol blood products and the ivf well with no complications. vitals stable. pt is in better spirits and is talking in full sentences.
[2021-09-06 07:08] LABS: Glucose, Whole Blood 176 mg/dL (60-115)
--- NOTE | 2021-09-06 07:14 | PC.NURSE ---
Pt awake, alert, jaundice with pale lower conjunctiva. Aware of plan of care. Dark bruising on left flank wraps around to left lower back. LS CTA. unlabored resp. st on monitor. first unit of blood infusing. awaits admission. states she's not taken thyroid med since 2013. And is distended but soft.
[2021-09-06] MEDS: Azithromycin 500 MG in 0.9 % Sodium Chloride 250 ML 125 MG IV (07:26)
--- NOTE | 2021-09-06 07:27 | PC.NURSE ---
second iv started and bolus resumed as well as ABX. hospitalist at bedside.
--- NOTE | 2021-09-06 08:00 | P.HPHOSP_ITS ---
History of Present Illness Date of Service: 09/06/21 Chief Complaint: abd pain This is a 60-year-old female with past medical history that includes alcoholic pancreatitis, celiac disease, diabetes, history of DVT not on any anticoagulation, HTN, HLD, hyperparathyroidism, hypothyroidism, history of microcytic anemia, osteoporosis, who initially presented to the hospital on 09/05 complaining of abdominal pain and distension. Patient reports that her abdominal distension started about a month ago worsened over the past week, she has also noticed pain in the abdomen, 06/12, she also reports that she has been having upper respiratory symptoms including rhinorrhea, cough, no dyspnea, had fevers of 99.6, no chills. Denies any lower extremity edema. She underwent paracentesis in the ED on 09/05 and 2.5 L of fluid were drawn. Patient was advised to stay in the hospital for further evaluation of liver failure but she refused to stay in the hospital, and was supposed to follow-up GI outpatient. Patient reports that following the paracentesis her abdominal distension improved and her pain also improved. Around 11:00 p.m. the same day patient developed significant abdominal pain as well as increased distension. she also had epistaxis. She reports that she had severe pain where she could not sit move or even lay down and therefore came back to the hospital. Patient reports that she is not on any anticoagulation at this time, and does not take any NSAIDs. On re-evaluation in the ED patient was found to have a 10 x 11 x 5 cm hematoma at the site of the paracentesis, vitals otherwise stable Labs are significant for hemoglobin that was initially 9.6 dropped to 7.0 on repeat with hematocrit of 20.3, PT of 125, INR of 10.5, BUN of 17, creatinine of 1.53 with a baseline of around 0.7, bilirubin of 4.2 that increases from 1.3 in April, AST 191, ALT of 49, alk-phos of 175, albumin of 2.9 The discussed with General surgery, at this time no surgical intervention for the hematoma is recommended Patient will be admitted for further management Review of Systems Review of Systems: Yes all other systems are reviewed and are negative [facility] Medical History Abdominal ascites Alcoholic pancreatitis Celiac disease Cirrhosis 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 Exocrine pancreatic insufficiency History of alcohol abuse History of DVT in adulthood HLD (hyperlipidemia) HTN (hypertension) Hyperparathyroidism Hypothyroidism (acquired) Microcytic anemia Osteoporosis Vitamin D deficiency Family History Father Cancer Mother Renal failure Brother Renal failure Other Substance use disorder Pertinent family history: No pertinent history Surgical History History of ankle surgery History of esophagogastroduodenoscopy (EGD) Hx of colonoscopy Social History Household Members: Spouse Housing: House Alcohol intake: current Alcohol intake frequency: former alcohol drinker Alcohol type: wine Patient Tobacco Use Status: Never used Tobacco Use of substances other than those prescribed or required for medical reasons: No Advance Directives: No Advance Directives Information Provided: Yes service: No 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 Allergies Allergy/AdvReac Type Severity Reaction Status Date / Time Penicillins Allergy Mild HIVES Verified 08/10/21 09:20 Home Medications Medication Instructions Recorded Confirmed Last Taken Type cholecalciferol (vitamin D3) 1,250 1,250 mcg PO SHEIKH@0900 09/06/21 09/06/21 Unknown History mcg (50,000 unit) capsule insulin pump controller 09/06/21 09/06/21 Unknown History Physical Exam Vital Signs and Narrative: Vital Signs: Last Vital Signs Temp 97.8 F 09/06/21 07:38 Pulse 94 09/06/21 07:38 Resp 18 09/06/21 07:36 BP 119/68 09/06/21 07:38 Pulse Ox 97 09/06/21 07:36 Body Mass Index 25.4 Const: General: cooperative and no acute distress Orientation/consciousness: patient oriented x3 Eyes: General: appearance normal, both eyes and all related structures Pupils: Equal, round and reactive pupils present Resp: Effort & Inspection: normal respiratory effort Auscultation: clear to auscultation bilaterally Cardio: Rate: regular rate Rhythm: regular rhythm GI: Other: abdominal tenderss, echymosis along the left abdomeinal wall, hard abdomen especially in the left abdomen no rebound and guarding Palpation (GI): Soft to palpation Auscultation: normal bowel sounds Skin: General skin exam: no rashes or lesions noted Neuro: General: patient oriented x3 Cranial nerves: Yes Equal, round and reactive pupils present Cognition (Neuro): normal cognition Extrem: General: Yes normal to inspection and Yes no pedal edema Results Labs CBC and Chem 7: 09/06/21 04:30 09/06/21 01:08 Labs: Laboratory Results - last 24 hr 09/06/21 09/06/21 09/06/21 01:08 01:08 01:08 MCV 78.1 L MCH 26.7 L MCHC 34.2 RDW 25.3 H Plt Count 267 MPV 11.2 Immature Gran % (Auto) 0.4 Neut % (Auto) 61.6 Lymph % (Auto) 25.2 [place] % (Auto) 10.4 Eos % (Auto) 1.1 Baso % (Auto) 1.3 Lymph # (Auto) 2.7 [place] # (Auto) 1.1 Eos # (Auto) 0.1 Baso # (Auto) 0.1 Abs Immat Gran (auto) 0.04 H Absolute Neuts (auto) 6.49 Absolute Nucleated RBC 0.000 Nucleated RBC % (auto) 0.0 PT INR Anion Gap 18 Estim Creat Clear Calc 30.6 Estimated GFR 34 POC Glucose Random Glucose 197 H Calcium 8.2 L Magnesium 1.5 L Total Bilirubin 4.2 H Direct Bilirubin 2.8 H AST 191 H ALT 49 H Alkaline Phosphatase 175 H Troponin I High Sens 10.2 Total Protein 8.1 H Albumin 2.9 L D Ethyl Alcohol COVID-19 (JOY) COVID-19 Clin Com Blood Type Antibody Screen Crossmatch 09/06/21 09/06/21 09/06/21 01:08 01:08 01:08 MCV MCH MCHC RDW Plt Count MPV Immature Gran % (Auto) Neut % (Auto) Lymph % (Auto) [place] % (Auto) Eos % (Auto) Baso % (Auto) Lymph # (Auto) [place] # (Auto) Eos # (Auto) Baso # (Auto) Abs Immat Gran (auto) Absolute Neuts (auto) Absolute Nucleated RBC Nucleated RBC % (auto) PT 125.3 H INR 10.5 H* Anion Gap Estim Creat Clear Calc Estimated GFR POC Glucose Random Glucose Calcium Magnesium Total Bilirubin Direct Bilirubin AST ALT Alkaline Phosphatase Troponin I High Sens Total Protein Albumin Ethyl Alcohol < 10 COVID-19 (JOY) Negative COVID-19 Clin Com See Note Blood Type Antibody Screen Crossmatch 09/06/21 09/06/21 02:56 07:03 MCV MCH MCHC RDW Plt Count MPV Immature Gran % (Auto) Neut % (Auto) Lymph % (Auto) [place] % (Auto) Eos % (Auto) Baso % (Auto) Lymph # (Auto) [place] # (Auto) Eos # (Auto) Baso # (Auto) Abs Immat Gran (auto) Absolute Neuts (auto) Absolute Nucleated RBC Nucleated RBC % (auto) PT INR Anion Gap Estim Creat Clear Calc Estimated GFR POC Glucose 176 H Random Glucose Calcium Magnesium Total Bilirubin Direct Bilirubin AST ALT Alkaline Phosphatase Troponin I High Sens Total Protein Albumin Ethyl Alcohol COVID-19 (JOY) COVID-19 Clin Com Blood Type O Positive Antibody Screen NEGATIVE Crossmatch See Detail Imaging Radiologist's Impressions: Impressions Abdomen/Pelvis CT 09/06/21 00:34 IMPRESSION: 1. Patchy multifocal groundglass opacities throughout both lungs, concerning for viral pneumonia such as COVID. 2. Acute intramuscular hematoma within the left internal oblique muscle measuring 10 x 11 x 5 mm and containing a hematocrit level. 3. Moderate to large volume of intraperitoneal ascites with associated mesenteric edema. Generalized small bowel wall thickening is likely related to the ascites. 4. Marked hepatic steatosis. 5. New dystrophic calcifications in the head of the pancreas, more pronounced as compared to the prior CT from 2018. These may correspond to the residual pancreatitis, but are not specific. Chest X-Ray 09/06/21 00:35 IMPRESSION: Hazy airspace opacities in the lung bases and right midlung which may correspond in part to atelectasis. A superimposed viral or atypical pneumonia also have this appearance. Chest CT 09/06/21 01:53 IMPRESSION: 1. Patchy multifocal groundglass opacities throughout both lungs, concerning for viral pneumonia such as COVID. 2. Acute intramuscular hematoma within the left internal oblique muscle measuring 10 x 11 x 5 mm and containing a hematocrit level. 3. Moderate to large volume of intraperitoneal ascites with associated mesenteric edema. Generalized small bowel wall thickening is likely related to the ascites. 4. Marked hepatic steatosis. 5. New dystrophic calcifications in the head of the pancreas, more pronounced as compared to the prior CT from 2019. These may correspond to the residual pancreatitis, but are not specific. Assessment and Plan (1) Abdominal pain: Status: Acute (2) Hematoma of abdominal wall: Status: Acute (3) Supratherapeutic INR: Status: Acute (4) Pneumonia: Status: Acute (5) Liver failure: Status: Acute (6) Coagulopathy: Status: Acute 60-year-old female with past medical history of diabetes, alcoholic pancreatitis, hypertension, diabetes, hyperlipidemia who initially presented to the hospital on 09/05 for abdominal distension, patient underwent paracentesis, 2.5 L of fluid was drawn, patient refused to stay in the hospital and left with a recommendation to follow-up outpatient with GI, patient returned for the same day with abdominal pain found to have abdominal wall hematoma # abdominal hematoma - patient had an INR of 10 most likely secondary to liver failure which is likely the cause of her hematoma - hemodynamically stable - hemoglobin did drop about 2 years, status post 2 FFP, 1 unit of PRBC, - Kcentra order - general surgery consulted recommends no surgical intervention at this time and close monitor - follow H&H q.6 hours # supratherapeutic INR/coagulopathy - most likely secondary to liver failure - patient has evidence of liver steatosis on CT abdomen - denies being on anticoagulation - patient received FFP x2, vitamin K, and Kcentra - follow PT INR # liver failure - most likely secondary to history of alcohol abuse - patient reports that she has not been drinking for the past 2 week but prior to that was a daily drinker - denies history of liver cirrhosis and reports that her abdominal distension only started about 1 or 2 months ago - hepatitis panel, autoimmune markers, as well as diagnostic paracentesis pending - GI consult - follow liver panel # AMISH - most likely prerenal in the setting of liver disease - start patient on IV fluid - follow BMP # multifocal pneumonia - concerning for viral pneumonia although patient is fully vaccinated room during a for COVID as well as received her flu vaccine last month, COVID-19 PCR negative - will obtain full viral panel - will start her on IV antibiotic - follow cultures # diabetes - uses insulin pump - will continue insulin pump - add low-dose sliding scale insert - diabetic diet DVT prophylaxis: SCDs Quality Stroke Does the patient have a stroke diagnosis?: No VTE Prior VTE?: No VTE Risk Level:: Medical - moderate - high VTE Device Contraindication: Treatment Not Indicated VTE Drug Contraindication: N/A - Med Ordered
--- NOTE | 2021-09-06 08:26 | PC.NURSE ---
Pt able to stand with assist to zero bed. Aware of plan for labs and resp panel then [facility] following updated info. States she was on thyroid medication until 3 weeks ago. Insulin pump running basal rate but patient has hard time figuring out what it is. 65 units left in insulin pump.
[2021-09-06 08:51] LABS: Adenovirus PCR Not Detected (Not Detect.); Bordetella parapertussis PCR Not Detected (Not Detect.); Bordetella pertussis PCR Not Detected (Not Detect.); Chlamydia pneumoniae PCR Not Detected (Not Detect.); Coronavirus 229E PCR Not Detected (Not Detect.); Coronavirus HKU1 PCR Not Detected (Not Detect.); Coronavirus NL63 PCR Not Detected (Not Detect.); Coronavirus OC43 PCR Not Detected (Not Detect.); Human metapneumovirus PCR Not Detected (Not Detect.); Influenza A PCR Not Detected (Not Detect.); Influenza B PCR Not Detected (Not Detect.); Mycoplasma pneumoniae PCR Not Detected (Not Detect.); Parainfluenza 1 PCR Not Detected (Not Detect.); Parainfluenza 2 PCR Not Detected (Not Detect.); Parainfluenza 3 PCR Not Detected (Not Detect.); Parainfluenza 4 PCR Not Detected (Not Detect.); RSV PCR Not Detected (Not Detect.); Rhino/Enterovirus PCR Not Detected (Not Detect.); SARS-CoV-2 PCR Not Detected (Not Detect.)
--- NOTE | 2021-09-06 08:51 | PC.NURSE ---
basal rate for insulin is 0.5units/hr.
--- NOTE | 2021-09-06 08:59 | PHA.MEDREC ---
Pharmacy Consult ? Medication Reconciliation Pharmacy has completed the medication reconciliation. Patient reported all meds on her med rec list, she hasnt filled her medications (besides the insulin in a few months.) She did report not taking her medications as she should. Also that since herbone mineral density increased, she may not need as much vitamin D or alendronate. Beth MolinaD
[2021-09-06 09:03] LABS: MANUAL DIFF FLAG NO
[2021-09-06 09:04] LABS: Basophils Absolute Auto 0.1 X10*3/uL (0.0-0.2); Basophils Percent Auto 0.7 % (0-2); Eosinophils Percent Auto 0.3 % (0-4); Imm Gran Abs Auto 0.04 X10*3/uL (0.00-0.03); Imm Gran Pct Auto 0.4 % (0.0-0.4); Lymphocytes Absolute Auto 2.1 X10*3/uL (1.2-4.9); Lymphocytes Percent Auto 23.9 % (20-40); Mean Corpuscular HGB Conc 34.9 g/dl (31.0-35.0); Mean Corpuscular Hemoglobin 28.4 pg (27.0-33.0); Mean Corpuscular Volume 81.3 fL (80.0-98.0); Mean Platelet Volume 11.9 fL (9.4-12.3); Monocytes Absolute Auto 1.1 X10*3/uL (0.1-1.2); Monocytes Percent Auto 12.7 % (2-11); Neutrophils Absolute Auto 5.52 x10*3/uL (2.0-8.3); Platelet Count 148 X10*3/uL (160-400); Red Blood Count 2.08 X10*6/uL (4.20-5.50); Red Cell Distribution Width 22.9 % (11.0-16.0); White Blood Count 8.9 X10*3/uL (4.8-10.8)
[2021-09-06 09:10] LABS: INTERNATIONAL NORM RATIO 3.7 (0.9-1.1); Prothrombin Time 43.5 SEC (9.9-13.0)
[2021-09-06 09:13] LABS: Hematocrit 16.9 % (37.0-47.0); Hemoglobin 5.9 g/dl (12.0-16.0)
[2021-09-06] MEDS: Albumin Human 25 % 100 ML IV ×4 (09:16→22:02)
[2021-09-06] MEDS: 0.9 % Sodium Chloride 500 ML 999 ML IV (09:18)
--- NOTE | 2021-09-06 09:44 | PM.CNGS ---
History of Present Illness Consult details Consult date: 09/06/21 Reason for consult: other (abdominal wall hematoma) Requesting physician: Laureano Lozada Narrative: Ms. Taylor is a 60 year old female with PMH including ETOH abuse, cirrhosis, HTN, pancreatic insufficiency and diabetes mellitus who presented to the ED with left hip/flank and left sided abdominal pain. SHe was seen in the ED yesterday for SOB, underwent paracentesis and had 2L of ascites drained. She left AMA. Later in the afternoon, she developed some left sided abdominal discomfort around the site of the paracentesis and her insulin pump. This worsened throughout the day and began to extend to her left hip and flank. She noted the beginning of a bruise at that time. The pain became unbearable around 11pm and she presented to the ED for evaluation. A CT scan of the abd/pelvis was performed which demonstrated an acute intramuscular hematoma within the left internal oblique muscle measuring 10 x 11 x 5 mm. Her H/H at that time was unchanged but she had an INR of 10.5, thought to be due to her liver disease. She was given FFP and vit K. She also had a chest x-ray shows patchy multifocal ground-glass opacities with an oxygen saturation of 91 on room air. She was therefore admitted to the medical service. Repeat labs later in the morning showed a decline in her H/H. Surgery was consulted for the abdominal wall hematoma. She reports the pain is improved with medication. She denies falling and hitting her left hip/flank/abdomen. She has not changed her insulin pump site in a few days. Review of Systems Constitutional: Constitutional: Denies chills and Denies fever(s) ENT: Denies dizziness Cardiovascular: Cardiovascular: Denies chest pain, Denies palpitations and Denies dyspnea Respiratory: Respiratory: Denies dyspnea Gastrointestinal: Gastrointestinal: Reports as per HPI, Denies melena, Denies hematochezia, Denies nausea, Denies vomiting and Denies hematemesis Genitourinary: Genitourinary: Denies hematuria and Denies dysuria Integumentary/Breasts: Skin/Breast: Reports as per HPI Neurologic: Denies dizziness and Denies focal weakness Endocrine: Endocrine: Denies palpitations PMFSH Past Medical History Medical History Abdominal ascites Alcoholic pancreatitis Celiac disease Cirrhosis 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 Exocrine pancreatic insufficiency History of alcohol abuse History of DVT in adulthood HLD (hyperlipidemia) HTN (hypertension) Hyperparathyroidism Hypothyroidism (acquired) Microcytic anemia Osteoporosis Vitamin D deficiency Family History Family History Father Cancer Mother Renal failure Brother Renal failure Other Substance use disorder Surgical History Surgical History History of ankle surgery History of esophagogastroduodenoscopy (EGD) Hx of colonoscopy Social History Social History Household Members: Spouse Housing: House Alcohol intake: current Alcohol intake frequency: former alcohol drinker Alcohol type: wine Patient Tobacco Use Status: Never used Tobacco Use of substances other than those prescribed or required for medical reasons: No Advance Directives: No Advance Directives Information Provided: Yes service: No 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 Allergies Allergy/AdvReac Type Severity Reaction Status Date / Time Penicillins Allergy Mild HIVES Verified 08/10/21 09:20 Active Medications: Current Medications Al Hydroxide/Mg Hydroxide (Magnesium Hydrox/Alum Hydrox 30 Ml Oral.Susp) 30 ml PO Q4H PRN PRN Reason: Heartburn/Nausea Prothrombin Complex Concent ( Human) 3,000 unit/ IV Miscellaneous Supplies 120 mls @ 480 mls/hr IV .Q15M ONE Stop: 09/06/21 08:16 Ceftriaxone Sodium 1 gm/ (Sodium Chloride) 50 mls @ 100 mls/hr IV Q24H NEMO Azithromycin 500 mg/ Sodium (Chloride) 250 mls @ 125 mls/hr IV Q24H NEMO Albumin Human (Kedbumin 25 %) 100 mls @ 100 mls/hr IV Q1H NEMO Stop: 09/06/21 10:59 Last Admin: 09/06/21 09:16 Dose: 100 mls/hr Documented by: Ondansetron HCl (Ondansetron Hcl 4 Mg/2 Ml Vial) 4 mg IVPUSH Q8H PRN PRN Reason: Nausea and Vomiting Pharmacy Consult (Consult Rx Perform Med Rec) 1 each MISCELLANE ONCE PRN PRN Reason: Consult order Sodium Chloride (0.9 % Sodium Chloride Flush 3 Ml Syringe) 3 ml IVFLUSH QSHIFT [facility] Last Admin: 09/06/21 09:18 Dose: Not Given Documented by: Home Medications Medication Instructions Recorded Confirmed Last Taken Type cholecalciferol (vitamin D3) 1,250 1,250 mcg PO SHEIKH@0900 09/06/21 09/06/21 Unknown History mcg (50,000 unit) capsule insulin pump controller 09/06/21 09/06/21 Unknown History Physical Exam Vital Signs: Vital Signs: Last Vital Signs Temp 97.8 F 09/06/21 07:38 Pulse 90 09/06/21 09:00 Resp 16 09/06/21 09:00 BP 94/53 L 09/06/21 09:21 Pulse Ox 98 09/06/21 08:50 Body Mass Index 26.0 Const: General: no acute distress, alert and tired appearing Orientation/consciousness: patient oriented x3 Eyes: Sclerae: scleral abnormal (icteric) Resp: Effort & Inspection: normal respiratory effort Cardio: Rate: tachycardic Rhythm: regular rhythm GI: Other: protuberant, paracentesis site at LLQ, significant ecchymosis 4-5cm laterally extending superiorly and posteriorly into left flank/back Inspection: Yes abdominal wall ecchymosis Palpation (GI): Soft to palpation (firmness/fullness at left lateral abdomen, left flank), Tenderness to palpation present (GI) (surrounding paracentesis site (LLQ) extending into left flank), no guarding and Ascites present Percussion: Yes dullness to percussion Skin: General skin exam: jaundice Neuro: General: patient oriented x3 Extrem: General: Yes no clubbing, cyanosis or edema Results Labs Result diagrams: 09/06/21 08:56 09/06/21 01:08 Labs: Abnormal lab results 09/06/21 09/06/21 09/06/21 Range/Units 01:08 01:08 01:08 RBC 3.60 L (4.20-5.50) X10*6/uL Hgb 9.6 L (12.0-16.0) g/dl Hct 28.1 L (37.0-47.0) % MCV 78.1 L (80.0-98.0) fL MCH 26.7 L (27.0-33.0) pg RDW 25.3 H (11.0-16.0) % Plt Count (160-400) X10*3/uL [place] % (Auto) (2-11) % Abs Immat Gran (auto) 0.04 H (0.00-0.03) X10*3/uL PT 125.3 H (9.9-13.0) SEC INR 10.5 H* (0.9-1.1) BUN 17 H (9-16) mg/dL Creatinine 1.53 H (0.5-1.4) mg/dL POC Glucose (60-115) mg/dL Random Glucose 197 H (60-115) mg/dL Calcium 8.2 L (8.4-10.2) mg/dL Magnesium 1.5 L (1.6-2.6) mg/dL Total Bilirubin 4.2 H (0.0-1.0) mg/dL Direct Bilirubin 2.8 H (0.0-0.5) mg/dL AST 191 H (5-31) U/L ALT 49 H (0-31) U/L Alkaline Phosphatase 175 H (39-117) U/L Total Protein 8.1 H (6.5-8.0) g/dL Albumin 2.9 L D (3.5-5.0) g/dL Crossmatch 09/06/21 09/06/21 09/06/21 Range/Units 02:56 04:30 07:03 RBC (4.20-5.50) X10*6/uL Hgb 7.0 L* D (12.0-16.0) g/dl Hct 20.3 L* D (37.0-47.0) % MCV (80.0-98.0) fL MCH (27.0-33.0) pg RDW (11.0-16.0) % Plt Count (160-400) X10*3/uL [place] % (Auto) (2-11) % Abs Immat Gran (auto) (0.00-0.03) X10*3/uL PT (9.9-13.0) SEC INR (0.9-1.1) BUN (9-16) mg/dL Creatinine (0.5-1.4) mg/dL POC Glucose 176 H (60-115) mg/dL Random Glucose (60-115) mg/dL Calcium (8.4-10.2) mg/dL Magnesium (1.6-2.6) mg/dL Total Bilirubin (0.0-1.0) mg/dL Direct Bilirubin (0.0-0.5) mg/dL AST (5-31) U/L ALT (0-31) U/L Alkaline Phosphatase (39-117) U/L Total Protein (6.5-8.0) g/dL Albumin (3.5-5.0) g/dL Crossmatch See Detail 09/06/21 09/06/21 Range/Units 08:46 08:56 RBC 2.08 L D (4.20-5.50) X10*6/uL Hgb 5.9 L* (12.0-16.0) g/dl Hct 16.9 L* (37.0-47.0) % MCV (80.0-98.0) fL MCH (27.0-33.0) pg RDW 22.9 H (11.0-16.0) % Plt Count 148 L D (160-400) X10*3/uL [place] % (Auto) 12.7 H (2-11) % Abs Immat Gran (auto) 0.04 H (0.00-0.03) X10*3/uL PT 43.5 H (9.9-13.0) SEC INR 3.7 H D (0.9-1.1) BUN (9-16) mg/dL Creatinine (0.5-1.4) mg/dL POC Glucose (60-115) mg/dL Random Glucose (60-115) mg/dL Calcium (8.4-10.2) mg/dL Magnesium (1.6-2.6) mg/dL Total Bilirubin (0.0-1.0) mg/dL Direct Bilirubin (0.0-0.5) mg/dL AST (5-31) U/L ALT (0-31) U/L Alkaline Phosphatase (39-117) U/L Total Protein (6.5-8.0) g/dL Albumin (3.5-5.0) g/dL Crossmatch Short CBC 09/06/21 09/06/21 09/06/21 Range/Units 01:08 04:30 08:56 WBC 10.6 8.9 (4.8-10.8) X10*3/uL Hgb 9.6 L 7.0 L* D 5.9 L* (12.0-16.0) g/dl Hct 28.1 L 20.3 L* D 16.9 L* (37.0-47.0) % Plt Count 267 148 L D (160-400) X10*3/uL BMP 09/06/21 01:08 Sodium 137 Potassium 3.6 Chloride 96 Carbon Dioxide 27 BUN 17 H Creatinine 1.53 H Calcium 8.2 L Liver Function 09/06/21 Range/Units 01:08 Total Bilirubin 4.2 H (0.0-1.0) mg/dL Direct Bilirubin 2.8 H (0.0-0.5) mg/dL AST 191 H (5-31) U/L ALT 49 H (0-31) U/L Alkaline Phosphatase 175 H (39-117) U/L Albumin 2.9 L D (3.5-5.0) g/dL All other labs normal. Assessment and Plan (1) Coagulopathy: Status: Acute (2) Liver failure: Status: Acute (3) Hematoma of abdominal wall: Status: Acute (4) Acute blood loss anemia: Status: Acute (5) Abdominal ascites: Status: Acute (6) Cirrhosis: Status: Acute 60 year old female with history significant for ETOH abuse, cirrhosis, HTN, pancreatic sufficiency and diabetes mellitus who presented to the ED with complaints of abdominal pain and ecchymosis found to have a supratherapeutic INR with CT scan demonstrating an intramuscular hematoma within the left internal oblique muscle measuring 10 x 11 x 5 mm with an acute drop in her H/H. Her coagulopathy has been treated with vitamin K and FFP with improvement. The patient does have a large ecchymosis of left abdomen/flank just lateral to the site of paracentesis needle insertion. Her H/H continues to downtrend but may be in part dilutional as the patient has received IVF/albumin. Would recommend transfusing as needed and continue to correct her coagulopathy in hopes that the hematoma tamponades the site of bleeding. Continue to trend her H/H. IR intervention would be the next appropriate step if needed but would continue to manage symptomatically at this point especially with a supratherapeutic INR. Discussed the plan with the patient and family who is in agreement. All questions answered. Will continue to follow closely. Procedures Date of Service Date of Service: 09/06/21
[2021-09-06 10:11] LABS: Hemoglobin 5.2 g/dl (12.0-16.0)
[2021-09-06 10:12] LABS: Hematocrit 15.4 % (37.0-47.0)
[2021-09-06 10:15] LABS: Alanine Aminotransferase 32 U/L (0-31); Albumin Level 2.4 g/dL (3.5-5.0); Alkaline Phosphatase 99 U/L (39-117); Aspartate Amino Transferase 111 U/L (5-31); Bilirubin Direct 2.2 mg/dL (0.0-0.5); Bilirubin Total 3.9 mg/dL (0.0-1.0); Salicylate 6.1 mg/dL (15-30); Total Protein 5.4 g/dL (6.5-8.0)
[2021-09-06 10:19] LABS: Acetaminophen LAB < 1 mcg/mL (<30)
--- NOTE | 2021-09-06 10:36 | PC.NURSE ---
pt remains alert. unlabroed resp. aware of plan for 2 units PRBs and admission to ICU.
[2021-09-06 10:39] LABS: HBsAGNum1 0.21 S/CO (0.00-0.99); Hepatitis B Surface Antigen Negative (Negative)
[2021-09-06 10:42] LABS: HBS Num1 > 1000.00 mIU/mL (0-7.99); HBc Num1 0.85 S/CO (0.00-0.79); ~HepC Num1 0.34 S/CO (0.00-0.79); ~Hepatitis B Surface Antibody REACTIVE (Nonreactive); ~Hepatitis C Antibody Nonreactive (Nonreactive)
--- NOTE | 2021-09-06 11:00 | PC.NURSE ---
pt has not urinated yet during time in ed.
--- NOTE | 2021-09-06 11:19 | PC.NURSE ---
assumed care of this pt at 1100 from RAZIA Singh, assisted in hanging unit of RBC's. blood slow dripping to pt aside from interventions to alter. pt awake and alert, calm. resting in bed.
--- NOTE | 2021-09-06 11:45 | PM.CCHP ---
History of Present Illness Date of Service: 09/06/21 Attending physician on admission: Gino Taveras Chief Complaint: Abdominal pain and weakness 60-year-old female who was known to be a chronic alcoholic but claims to have stopped 2 years ago and that just has an occasional drink no withdrawal manifestations Presented with some degree of shortness of breath cold like symptoms including cough and the a mild fever and is already had PCR testing negative for influenza and back for all seasonal viruses as well as coronavirus She has autoimmune issues including celiac disease with positive anti a gliaden and it tissue transglutaminase Elo has also had bouts of pancreatitis malabsorption of issues with vitamin-D deficiency and hypocalcemia also both parathyroid as well as thyroid disease and now is an insulin-dependent diabetic as well and so this may be a auto a autoimmune issue with a multi organ involvement and on CT scan of the chest she presents with bilateral nodular ground-glass infiltrates and definitely no aspiration and definitely no left heart failure I did bedside echo showing normal left and right ventricular size and function and no primary valve or pericardial disease but also has a very distended abdomen with a large left flank hematoma which was the site with the ascites was drained of 2.5 L of clear serous fluid which did not have a significant white count so I doubt spontaneous bacterial peritonitis and I just called to have chemistries added to the fluid if that still possible But she had markedly elevated prothrombin time and INR which is new with INR of 10 and given 2 units of fresh frozen so now it is down to 4 hemoglobin dropped from 9.6-5 despite 1 unit of blood also in between so 2 more units of being transfuse along with 2 units of fresh frozen plasma. She was somewhat hypotensive with pressure dropping as low as 80 spontaneously recovering to 99 and hopefully will be able to continue to give fluids and she still does have a significant ascites that I could see on sonography of her abdomen She also came in with acute renal failure doubling both her BUN and creatinine which is currently at 1.5 and she is leukopenic anemic and thrombocytopenic as well and I am going to check on a serum fibrinogen so we have a baseline that we can continue to watch and see if she is developing a consumptive coagulopathy that could be consistent with DIC Review of Systems Review of Systems: Mild constitutional complaints including low-grade fever almost day complaint of aches and pains no specific joint issues no skin rash and nonproductive cough was also mild and this apparently she had with her roommate as well PMFSH Past Medical History Medical History Abdominal ascites Alcoholic pancreatitis Celiac disease Cirrhosis 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 Exocrine pancreatic insufficiency History of alcohol abuse History of DVT in adulthood HLD (hyperlipidemia) HTN (hypertension) Hyperparathyroidism Hypothyroidism (acquired) Microcytic anemia Osteoporosis Vitamin D deficiency Family History Family History Father Cancer Mother Renal failure Brother Renal failure Other Substance use disorder Surgical History Surgical History History of ankle surgery History of esophagogastroduodenoscopy (EGD) Hx of colonoscopy Social History Social History Household Members: Spouse Housing: House Alcohol intake: current Alcohol intake frequency: former alcohol drinker Alcohol type: wine Patient Tobacco Use Status: Never used Tobacco Use of substances other than those prescribed or required for medical reasons: No Advance Directives: No Advance Directives Information Provided: Yes service: No 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 Allergies Allergy/AdvReac Type Severity Reaction Status Date / Time Penicillins Allergy Mild HIVES Verified 08/10/21 09:20 Active Medications: Current Medications Al Hydroxide/Mg Hydroxide (Magnesium Hydrox/Alum Hydrox 30 Ml Oral.Susp) 30 ml PO Q4H PRN PRN Reason: Heartburn/Nausea Ceftriaxone Sodium 1 gm/ (Sodium Chloride) 50 mls @ 100 mls/hr IV Q24H [facility] Azithromycin 500 mg/ Sodium (Chloride) 250 mls @ 125 mls/hr IV Q24H [facility] Prothrombin Complex Concent ( Human) 1,500 unit/ IV Miscellaneous Supplies 60 mls @ 480 mls/hr IV .Q8M ONE Stop: 09/06/21 11:47 Ondansetron HCl (Ondansetron Hcl 4 Mg/2 Ml Vial) 4 mg IVPUSH Q8H PRN PRN Reason: Nausea and Vomiting Pharmacy Consult (Consult Rx Perform Med Rec) 1 each MISCELLANE ONCE PRN PRN Reason: Consult order Sodium Chloride (0.9 % Sodium Chloride Flush 3 Ml Syringe) 3 ml IVFLUSH QSHIFT [facility] Last Admin: 09/06/21 09:18 Dose: Not Given Documented by: Home Medications Medication Instructions Recorded Confirmed Last Taken Type cholecalciferol (vitamin D3) 1,250 1,250 mcg PO SHEIKH@0900 09/06/21 09/06/21 Unknown History mcg (50,000 unit) capsule insulin pump controller 09/06/21 09/06/21 Unknown History Physical Exam Vital Signs: Vital Signs: Last Vital Signs Temp 98.1 F 09/06/21 11:26 Pulse 87 09/06/21 11:26 Resp 19 09/06/21 11:26 BP 113/58 L 09/06/21 11:26 Pulse Ox 100 09/06/21 10:44 Body Mass Index 26.0 Awake alert conversive oriented and nonfocal neurologically Marginal of blood pressure in normal sinus rhythm with systolic pressures in the 90s and good room air oxygen saturation no significant work of breathing and afebrile Lungs clear no adventitious sounds Abdomen distended no guarding Skin is intact Results Labs CBC and Chem 7: 09/06/21 09:47 09/06/21 01:08 Labs: Laboratory Results - last 24 hr 09/06/21 09/06/21 09/06/21 01:08 01:08 01:08 MCV 78.1 L MCH 26.7 L MCHC 34.2 RDW 25.3 H Plt Count 267 MPV 11.2 Immature Gran % (Auto) 0.4 Neut % (Auto) 61.6 Lymph % (Auto) 25.2 Sutton % (Auto) 10.4 Eos % (Auto) 1.1 Baso % (Auto) 1.3 Lymph # (Auto) 2.7 Sutton # (Auto) 1.1 Eos # (Auto) 0.1 Baso # (Auto) 0.1 Abs Immat Gran (auto) 0.04 H Absolute Neuts (auto) 6.49 Absolute Nucleated RBC 0.000 Nucleated RBC % (auto) 0.0 PT INR Anion Gap 18 Estim Creat Clear Calc 30.6 Estimated GFR 34 POC Glucose Random Glucose 197 H Calcium 8.2 L Magnesium 1.5 L Total Bilirubin 4.2 H Direct Bilirubin 2.8 H AST 191 H ALT 49 H Alkaline Phosphatase 175 H Troponin I High Sens 10.2 Total Protein 8.1 H Albumin 2.9 L D Salicylates Acetaminophen Ethyl Alcohol Respiratory Panel [place] Adenovirus (Rapid PCR) B.pert (TEM-PCR) B.parapertussis DNA PCR C. pneumoniae DNA (PCR) Coronavirus OC43 (PCR) Coronavirus HKU1 (PCR) Coronavirus 229E (PCR) COVID-19 (JOY) COVID-19 Clin Com Coronavirus NL63 (PCR) Hep Bs Antigen Hep Bs Antibody Hepatitis C Ab (EIA) Human Metapneumovir PCR Influenza A (RT-PCR) Influenza B (RT-PCR) M. pneumoniae (PCR) Parainfluenza 1 (PCR) Parainfluenza 2 (PCR) Parainfluenza 3 (PCR) Parainfluenza 4 (PCR) RSV (PCR) Entero/Rhino (PCR) SARS-CoV-2 RNA (RT-PCR) Blood Type Antibody Screen Crossmatch 09/06/21 09/06/21 09/06/21 01:08 01:08 01:08 MCV MCH MCHC RDW Plt Count MPV Immature Gran % (Auto) Neut % (Auto) Lymph % (Auto) Sutton % (Auto) Eos % (Auto) Baso % (Auto) Lymph # (Auto) Sutton # (Auto) Eos # (Auto) Baso # (Auto) Abs Immat Gran (auto) Absolute Neuts (auto) Absolute Nucleated RBC Nucleated RBC % (auto) PT 125.3 H INR 10.5 H* Anion Gap Estim Creat Clear Calc Estimated GFR POC Glucose Random Glucose Calcium Magnesium Total Bilirubin Direct Bilirubin AST ALT Alkaline Phosphatase Troponin I High Sens Total Protein Albumin Salicylates Acetaminophen Ethyl Alcohol < 10 Respiratory Panel [place] Adenovirus (Rapid PCR) B.pert (TEM-PCR) B.parapertussis DNA PCR C. pneumoniae DNA (PCR) Coronavirus OC43 (PCR) Coronavirus HKU1 (PCR) Coronavirus 229E (PCR) COVID-19 (JOY) Negative COVID-19 Clin Com See Note Coronavirus NL63 (PCR) Hep Bs Antigen Hep Bs Antibody Hepatitis C Ab (EIA) Human Metapneumovir PCR Influenza A (RT-PCR) Influenza B (RT-PCR) M. pneumoniae (PCR) Parainfluenza 1 (PCR) Parainfluenza 2 (PCR) Parainfluenza 3 (PCR) Parainfluenza 4 (PCR) RSV (PCR) Entero/Rhino (PCR) SARS-CoV-2 RNA (RT-PCR) Blood Type Antibody Screen Crossmatch 09/06/21 09/06/21 09/06/21 02:56 07:03 08:46 MCV MCH MCHC RDW Plt Count MPV Immature Gran % (Auto) Neut % (Auto) Lymph % (Auto) Sutton % (Auto) Eos % (Auto) Baso % (Auto) Lymph # (Auto) Sutton # (Auto) Eos # (Auto) Baso # (Auto) Abs Immat Gran (auto) Absolute Neuts (auto) Absolute Nucleated RBC Nucleated RBC % (auto) PT 43.5 H INR 3.7 H D Anion Gap Estim Creat Clear Calc Estimated GFR POC Glucose 176 H Random Glucose Calcium Magnesium Total Bilirubin Direct Bilirubin AST ALT Alkaline Phosphatase Troponin I High Sens Total Protein Albumin Salicylates Acetaminophen Ethyl Alcohol Respiratory Panel [place] Adenovirus (Rapid PCR) B.pert (TEM-PCR) B.parapertussis DNA PCR C. pneumoniae DNA (PCR) Coronavirus OC43 (PCR) Coronavirus HKU1 (PCR) Coronavirus 229E (PCR) COVID-19 (JOY) COVID-19 Clin Com Coronavirus NL63 (PCR) Hep Bs Antigen Hep Bs Antibody Hepatitis C Ab (EIA) Human Metapneumovir PCR Influenza A (RT-PCR) Influenza B (RT-PCR) M. pneumoniae (PCR) Parainfluenza 1 (PCR) Parainfluenza 2 (PCR) Parainfluenza 3 (PCR) Parainfluenza 4 (PCR) RSV (PCR) Entero/Rhino (PCR) SARS-CoV-2 RNA (RT-PCR) Blood Type O Positive Antibody Screen NEGATIVE Crossmatch See Detail 09/06/21 09/06/21 09/06/21 08:46 08:56 09:47 MCV 81.3 MCH 28.4 MCHC 34.9 RDW 22.9 H Plt Count 148 L D MPV 11.9 Immature Gran % (Auto) 0.4 Neut % (Auto) 62.0 Lymph % (Auto) 23.9 Sutton % (Auto) 12.7 H Eos % (Auto) 0.3 Baso % (Auto) 0.7 Lymph # (Auto) 2.1 Sutton # (Auto) 1.1 Eos # (Auto) 0.0 Baso # (Auto) 0.1 Abs Immat Gran (auto) 0.04 H Absolute Neuts (auto) 5.52 Absolute Nucleated RBC 0.000 Nucleated RBC % (auto) 0.0 PT INR Anion Gap Estim Creat Clear Calc Estimated GFR POC Glucose Random Glucose Calcium Magnesium Total Bilirubin 3.9 H Direct Bilirubin 2.2 H AST 111 H ALT 32 H Alkaline Phosphatase 99 D Troponin I High Sens Total Protein 5.4 L D Albumin 2.4 L Salicylates 6.1 L Acetaminophen < 1 Ethyl Alcohol Respiratory Panel Almendarez See Note Adenovirus (Rapid PCR) Not Detected B.pert (TEM-PCR) Not Detected B.parapertussis DNA PCR Not Detected C. pneumoniae DNA (PCR) Not Detected Coronavirus OC43 (PCR) Not Detected Coronavirus HKU1 (PCR) Not Detected Coronavirus 229E (PCR) Not Detected COVID-19 (JOY) COVID-19 Clin Com Coronavirus NL63 (PCR) Not Detected Hep Bs Antigen Hep Bs Antibody Hepatitis C Ab (EIA) Human Metapneumovir PCR Not Detected Influenza A (RT-PCR) Not Detected Influenza B (RT-PCR) Not Detected M. pneumoniae (PCR) Not Detected Parainfluenza 1 (PCR) Not Detected Parainfluenza 2 (PCR) Not Detected Parainfluenza 3 (PCR) Not Detected Parainfluenza 4 (PCR) Not Detected RSV (PCR) Not Detected Entero/Rhino (PCR) Not Detected SARS-CoV-2 RNA (RT-PCR) Not Detected Blood Type Antibody Screen Crossmatch 09/06/21 09:47 MCV MCH MCHC RDW Plt Count MPV Immature Gran % (Auto) Neut % (Auto) Lymph % (Auto) Sutton % (Auto) Eos % (Auto) Baso % (Auto) Lymph # (Auto) Sutton # (Auto) Eos # (Auto) Baso # (Auto) Abs Immat Gran (auto) Absolute Neuts (auto) Absolute Nucleated RBC Nucleated RBC % (auto) PT INR Anion Gap Estim Creat Clear Calc Estimated GFR POC Glucose Random Glucose Calcium Magnesium Total Bilirubin Direct Bilirubin AST ALT Alkaline Phosphatase Troponin I High Sens Total Protein Albumin Salicylates Acetaminophen Ethyl Alcohol Respiratory Panel [place] Adenovirus (Rapid PCR) B.pert (TEM-PCR) B.parapertussis DNA PCR C. pneumoniae DNA (PCR) Coronavirus OC43 (PCR) Coronavirus HKU1 (PCR) Coronavirus 229E (PCR) COVID-19 (JOY) COVID-19 Clin Com Coronavirus NL63 (PCR) Hep Bs Antigen Negative Hep Bs Antibody REACTIVE Hepatitis C Ab (EIA) Nonreactive Human Metapneumovir PCR Influenza A (RT-PCR) Influenza B (RT-PCR) M. pneumoniae (PCR) Parainfluenza 1 (PCR) Parainfluenza 2 (PCR) Parainfluenza 3 (PCR) Parainfluenza 4 (PCR) RSV (PCR) Entero/Rhino (PCR) SARS-CoV-2 RNA (RT-PCR) Blood Type Antibody Screen Crossmatch Imaging Radiologist's Impressions: Impressions Abdomen/Pelvis CT 09/06/21 00:34 IMPRESSION: 1. Patchy multifocal groundglass opacities throughout both lungs, concerning for viral pneumonia such as COVID. 2. Acute intramuscular hematoma within the left internal oblique muscle measuring 10 x 11 x 5 mm and containing a hematocrit level. 3. Moderate to large volume of intraperitoneal ascites with associated mesenteric edema. Generalized small bowel wall thickening is likely related to the ascites. 4. Marked hepatic steatosis. 5. New dystrophic calcifications in the head of the pancreas, more pronounced as compared to the prior CT from 2018. These may correspond to the residual pancreatitis, but are not specific. Chest X-Ray 09/06/21 00:35 IMPRESSION: Hazy airspace opacities in the lung bases and right midlung which may correspond in part to atelectasis. A superimposed viral or atypical pneumonia also have this appearance. Chest CT 09/06/21 01:53 IMPRESSION: 1. Patchy multifocal groundglass opacities throughout both lungs, concerning for viral pneumonia such as COVID. 2. Acute intramuscular hematoma within the left internal oblique muscle measuring 10 x 11 x 5 mm and containing a hematocrit level. 3. Moderate to large volume of intraperitoneal ascites with associated mesenteric edema. Generalized small bowel wall thickening is likely related to the ascites. 4. Marked hepatic steatosis. 5. New dystrophic calcifications in the head of the pancreas, more pronounced as compared to the prior CT from 2019. These may correspond to the residual pancreatitis, but are not specific. Assessment and Plan (1) Acute blood loss anemia: Status: Acute (2) Coagulopathy: Status: Acute (3) Liver failure: Status: Acute (4) Abdominal pain: Status: Acute (5) Epistaxis: Status: Acute (6) Hematoma of abdominal wall: Status: Acute (7) Supratherapeutic INR: Status: Acute (8) Pneumonia: Status: Acute (9) Cirrhosis: Status: Acute (10) Abdominal ascites: Status: Acute (11) HLD (hyperlipidemia): Status: Acute (12) HTN (hypertension): Status: Acute (13) History of alcohol abuse: Status: Acute (14) Microcytic anemia: Status: Acute (15) Exocrine pancreatic insufficiency: Status: Acute (16) Celiac disease: Status: Acute (17) Vitamin D deficiency: Status: Acute (18) Osteoporosis: Qualifiers: Osteoporosis type: other Presence of current pathological fracture: without current pathological fracture Qualified Code(s): M81.8 - Other osteoporosis without current pathological fracture Status: Acute (19) Hyperparathyroidism: Status: Acute (20) 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: Status: Acute (21) Blood in urine: Status: Acute (22) Diabetes mellitus type 1: Qualifiers: Diabetes mellitus complication status: with hyperglycemia Qualified Code(s): E10.65 - Type 1 diabetes mellitus with hyperglycemia Status: Acute (23) Primary hypothyroidism: Status: Acute (24) Hemorrhagic shock: Status: Acute (25) Pancytopenia: Status: Acute (26) Acute kidney failure: Status: Acute A 1st and foremost is aggressive volume repletion initially with both factor replacement as well as packed red cells and if unable to maintain adequate systolic and mean arterial pressures will consider a pressor at at for which purpose I would need a central line hopefully to be avoided I will try to obtain chemistries from albumin to protein to LDH to define the ascitic fluid a little bit better Screening sed rate given the autoimmune nature of her overall disease and no explanation just yet for the acute renal failure as well as the ground-glass infiltrates on the CT scan of her chest
--- NOTE | 2021-09-06 12:08 | PC.NURSE ---
rn to rn with Angella Mendez
[2021-09-06] MEDS: 0.9 % Sodium Chloride 1,000 ML 100 ML IVCONT (12:37)
--- NOTE | 2021-09-06 12:38 | MHC.CM.PN ---
Attempted to meet with patient in regards to discharge planning. Nursing care currently being provided. Will attempt to meet with patient again. Continue to monitor for d/c needs.
--- NOTE | 2021-09-06 12:48 | PM.GICN ---
History of Present Illness Data of Consult Service Date: 09/06/21 Requesting physician: Laureano Lozada Primary Care Provider: Lana Stafford MD HPI 60-year-old female with hx of alcoholic pancreatitis, celiac disease, diabetes, history of DVT not on any anticoagulation, HTN, HLD, hyperparathyroidism, hypothyroidism, history of microcytic anemia, osteoporosis, seen at [facility] with abdominal pain and distension due to ascites.? Patient noted progressive abdominal distension for the past month and became worse over the past week, She admits to wt gain of 12 lbs over the past 2 weeks. She also noticed 8/10 abdominal pain. she has been eating less due to poor appetite. She noted some black stools after she took peptobismol Pt reports upper respiratory symptoms including rhinorrhea, cough, no dyspnea, had fevers of 99.6, no chills.? She lower extremity edema.? Pt had a LVP in the ED on 09/05 and 2.5 L of fluid were drawn.? Patient was advised to stay in the hospital for further evaluation of liver failure and she refused to stay in the hospital. Pt is followed by Dr Morales and has not been seen in the GI clinic for the past year.? Patient reports that following the paracentesis her abdominal distension improved and her pain also improved.? Around 11:00 p.m. the same day patient developed significant abdominal pain as well as increased distension. she also had epistaxis. ? She reports that she had severe pain where she could not sit move or even lay down and therefore came back to the hospital. Patient reports that she is not on any anticoagulation at this time, and does not take any NSAIDs. On re-evaluation in the ED patient was found to have a 10 x 11 x 5 cm hematoma at the site of the paracentesis, vitals otherwise stable Labs are significant for hemoglobin that was initially 9.6 dropped to 7.0 on repeat with hematocrit of 20.3, PT of 125, INR of 10.5, BUN of 17, creatinine of 1.53 with a baseline of around 0.7, bilirubin of 4.2 that increases from 1.3 in April, AST 191, ALT of 49, alk-phos of 175, albumin of 2.9 Pt reports she quitted drinking alcohol 2 weeks ago - was taking a little rum with egg nog Pt lives with her partner and has no children. 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 Patient has a strong family history of alcoholism in all family members. Father of abdominal cancer of unknown primary. Mom had pancreatic problems. A brother of renal disease. IMAGING STUDIES: 09/06/[address] SCAN SHOWED: 1. Patchy multifocal groundglass opacities throughout both lungs, concerning for viral pneumonia such as COVID. 2. Acute intramuscular hematoma within the left internal oblique muscle measuring 10 x 11 x 5 mm and containing a hematocrit level. 3. Moderate to large volume of intraperitoneal ascites with associated mesenteric edema. Generalized small bowel wall thickening is likely related to the ascites. 4. Marked hepatic steatosis. 5. New dystrophic calcifications in the head of the pancreas, more pronounced as compared to the prior CT from 2019. These may correspond to the residual pancreatitis, but are not specific. Review of Systems Constitutional: Constitutional: Reports fatigue, Reports fever(s), Denies headache(s), Reports weight gain and Denies weight loss Eyes: Eyes: Denies eye discharge and Denies irritation ENT: Reports Normal hearing present, Denies dysphagia, Denies dizziness and Denies headache(s) Cardiovascular: Cardiovascular: Denies chest pain, Denies leg edema and Denies dyspnea on exertion Respiratory: Respiratory: Reports cough and Denies dyspnea on exertion Gastrointestinal: Gastrointestinal: Reports abdominal pain, Reports bloating, Denies change in bowel habits, Denies dysphagia, Reports early satiety, Denies heartburn and Reports other (poor appetite) Genitourinary: Genitourinary: Denies difficulty voiding and Denies dysuria Musculoskeletal: Musculoskeletal: Denies back pain and Denies arthralgias Integumentary/Breasts: Skin/Breast: Denies pruritus, Denies rash and Denies jaundice Neurologic: Reports Normal hearing present, Denies Abnormal speech present, Denies dizziness, Denies headache(s) and Denies seizure-like activity Psychiatric: Psychiatric: Denies anxiety, Denies depression and Denies panic attacks Endocrine: Endocrine: Denies cold intolerance, Reports fatigue, Denies flushing and Denies heat intolerance [facility] Past Medical History Medical History (Updated 09/07/21 @ 16:11 by Selin Elias MD) Abdominal ascites Alcoholic pancreatitis Celiac disease Cirrhosis 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 Exocrine pancreatic insufficiency History of alcohol abuse History of DVT in adulthood HLD (hyperlipidemia) HTN (hypertension) Hyperparathyroidism Hypothyroidism (acquired) Intramuscular hematoma Microcytic anemia Osteoporosis Vitamin D deficiency Family History Family History Father Cancer Mother Renal failure Brother Renal failure Other Substance use disorder Surgical History Surgical History History of ankle surgery History of esophagogastroduodenoscopy (EGD) Hx of colonoscopy Social History Social History Household Members: Spouse Housing: Apartment Do you presently have visiting nurse or other home services: No Alcohol intake: current Alcohol intake frequency: former alcohol drinker Alcohol type: wine Patient Tobacco Use Status: Never used Tobacco e-Cigarette/Vaping Use: Never Used [employer] service: No 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 Allergies Allergy/AdvReac Type Severity Reaction Status Date / Time Penicillins Allergy Mild HIVES Verified 08/10/21 09:20 Active Medications: Current Medications Al Hydroxide/Mg Hydroxide (Magnesium Hydrox/Alum Hydrox 30 Ml Oral.Susp) 30 ml PO Q4H PRN PRN Reason: Heartburn/Nausea Ceftriaxone Sodium 1 gm/ (Sodium Chloride) 50 mls @ 100 mls/hr IV Q24H [facility] Azithromycin 500 mg/ Sodium (Chloride) 250 mls @ 125 mls/hr IV Q24H [facility] Sodium Chloride (Ns) 1,000 mls @ 100 mls/hr IVCONT .Q10H [facility] Last Admin: 09/06/21 12:37 Dose: 100 mls/hr Documented by: Pantoprazole Sodium 40 mg/ (Sodium Chloride) 110 mls @ 400 mls/hr IV DAILY@0630 [facility] Phenylephrine HCl 20 mg/ (Sodium Chloride) 252 mls @ 0 mls/hr IVCONT .Q0M [facility]; Protocol Thiamine HCl 100 mg/ Sodium (Chloride) 101 mls @ 202 mls/hr IV DAILY [facility] Insulin Human Lispro (Insulin Lispro 100 Unit/Ml 3 Ml Vial) 0 unit SUBCUT QIDACHS [facility]; Protocol Levothyroxine Sodium (Levothyroxine Sodium 100 Mcg Vial) 62.5 mcg IVPUSH DAILY@0600 [facility] Ondansetron HCl (Ondansetron Hcl 4 Mg/2 Ml Vial) 4 mg IVPUSH Q8H PRN PRN Reason: Nausea and Vomiting Pharmacy Consult (Consult Rx Perform Med Rec) 1 each MISCELLANE ONCE PRN PRN Reason: Consult order Sodium Chloride (0.9 % Sodium Chloride Flush 3 Ml Syringe) 3 ml IVFLUSH QSHIFT [facility] Last Admin: 09/06/21 09:18 Dose: Not Given Documented by: Home Medications Medication Instructions Recorded Confirmed Last Taken Type cholecalciferol (vitamin D3) 1,250 1,250 mcg PO SHEIKH@0900 09/06/21 09/06/21 Unknown History mcg (50,000 unit) capsule insulin pump controller 09/06/21 09/06/21 Unknown History Physical Exam Vital Signs: Vital Signs: Last Vital Signs Temp 98.1 F 09/06/21 11:26 Pulse 89 09/06/21 12:36 Resp 18 09/06/21 12:36 BP 103/61 09/06/21 12:36 Pulse Ox 96 09/06/21 12:36 Body Mass Index 26.0 Const: General: ill appearing Nutritional Appearance: average body habitus Orientation/consciousness: patient oriented x3 Limitations: no limitations HENMT: Head: Yes normal to inspection Ears: hearing grossly normal bilaterally Mouth: Normal oral and palatal mucosa present Eyes: Sclerae: sclerae normal Pupils: Equal, round and reactive pupils present Neck: Neck: Yes normal visual inspection Chest: Chest palpation & inspection: normal inspection of the chest Resp: Effort & Inspection: normal respiratory effort Auscultation: clear to auscultation bilaterally Cardio: Palpation: normal PMI Rate: regular rate Rhythm: regular rhythm Heart sounds: S1 normal heart sound present, S2 normal heart sound present and no murmurs GI: Inspection: Yes abdominal wall ecchymosis (LLQ extending to left flank) and Yes distended Palpation (GI): Soft to palpation, Tenderness to palpation present (GI) in the LLQ and suprapubicly and No hepatosplenomegaly present Auscultation: normal bowel sounds Rectal Exam - Female: deferred Skin: General skin exam: no rashes or lesions noted Neuro: General: patient oriented x3, gait normal and moves all extremities Cranial nerves: Yes Equal, round and reactive pupils present and Yes Normal hearing present Speech: No Abnormal speech present Extrem: General: Yes pedal edema (trace pitting edema) Psych: Appearance: grossly normal Mental Status: mental status grossly normal Results Labs CBC & Chem 7: 09/07/21 17:01 09/07/21 17:01 Labs: Short CBC 09/06/21 09/06/21 09/06/21 Range/Units 01:08 01:08 04:30 WBC 10.6 (4.8-10.8) X10*3/uL Hgb 9.6 L 7.0 L* D (12.0-16.0) g/dl Hct 28.1 L 20.3 L* D (37.0-47.0) % Plt Count 267 (160-400) X10*3/uL Creatinine 1.53 H (0.5-1.4) mg/dL Total Bilirubin 4.2 H (0.0-1.0) mg/dL 09/06/21 09/06/21 09/06/21 Range/Units 08:56 09:47 09:47 WBC 8.9 (4.8-10.8) X10*3/uL Hgb 5.9 L* 5.2 L* (12.0-16.0) g/dl Hct 16.9 L* 15.4 L* (37.0-47.0) % Plt Count 148 L D (160-400) X10*3/uL Creatinine (0.5-1.4) mg/dL Total Bilirubin 3.9 H (0.0-1.0) mg/dL BMP 09/06/21 01:08 Sodium 137 Potassium 3.6 Chloride 96 Carbon Dioxide 27 BUN 17 H Creatinine 1.53 H Calcium 8.2 L Liver Function 09/06/21 09/06/21 Range/Units 01:08 09:47 Total Bilirubin 4.2 H 3.9 H (0.0-1.0) mg/dL Direct Bilirubin 2.8 H 2.2 H (0.0-0.5) mg/dL AST 191 H 111 H (5-31) U/L ALT 49 H 32 H (0-31) U/L Alkaline Phosphatase 175 H 99 D (39-117) U/L Albumin 2.9 L D 2.4 L (3.5-5.0) g/dL Assessment and Plan (1) Cirrhosis: Status: Acute (2) Abdominal ascites: Status: Acute (3) Exocrine pancreatic insufficiency: Status: Acute (4) Celiac disease: Status: Acute (5) History of alcohol abuse: Status: Acute (6) Hemorrhagic shock: Status: Acute (7) Coagulopathy: Status: Acute 60 YF with 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 Pt underwent LVP yesterday at [facility] and returned last night with LLQ pain with large echymosis in LLQ and left flank likely related to intra-abdominal bleeding related to paracentesis. Pt noted to have severe coagulopathy - likely multifactorial - liver disease, poor PO intake and consumption coagulopathy due to intra-abdominal bleeding. No SBP detected on ascitic fluid analysis. RECOMMENDATIONS: 1. Monitor H & H and prothrombin time twice daily and transfuse prn. 2. Start Gluten free diet once ready to take PO. 3. She can resume taking Zenpep (40999 units of Lipase) with meals for pancreatic insufficience once she resumes PO diet 4. She will need repeat large volume paracentesis once stable from intra-abdominal bleed and coagulopathy is corrected back to baseline 5. Not a candidate for diuretics given elevated Creatinine SURVEILLANCE FOR GASTROESOPHAGEAL VARICES: No varices were noted [place] [address] Morales. There were mucosal changes cw active celiac disease in the duodenum QUESTION OF LIVER TRANSPLANTATION: Meld score of 30, Patient is not a good candidate for liver transplantation due to continued alcohol use and history of non-compliance with diet and medications and poor insight regarding her multiple medical problems. Procedures Date of Service Date of Service: 09/06/21
[2021-09-06 13:22] LABS: HBc Num2 0.06 S/CO; HBc Num3 0.08 S/CO; Hepatitis B Core Antibody Nonreactive (Nonreactive)
[2021-09-06] MEDS: Hum Prothrombin Cplx(PCC)4Fact 1,500 UNIT in Container,Empty 0 ML 480 UNIT IV (14:07)
[2021-09-06] MEDS: Thiamine HCL 100 MG in 0.9 % Sodium Chloride 100 ML 202 MG IV (14:07)
[2021-09-06] MEDS: Pantoprazole Sodium 40 MG in 0.9 % Sodium Chloride 100 ML 400 MG IV (14:07)
[2021-09-06 14:42] LABS: Glucose, Whole Blood 205 mg/dL (60-115)
[2021-09-06 15:10] LABS: MANUAL DIFF FLAG NO
[2021-09-06 15:13] LABS: Basophils Absolute Auto 0.1 X10*3/uL (0.0-0.2); Eosinophils Absolute Auto 0.1 X10*3/uL (0.0-0.4); Hematocrit 23.2 % (37.0-47.0); Hemoglobin 8.1 g/dl (12.0-16.0); Imm Gran Abs Auto 0.04 X10*3/uL (0.00-0.03); Imm Gran Pct Auto 0.4 % (0.0-0.4); Lymphocytes Absolute Auto 2.7 X10*3/uL (1.2-4.9); Mean Corpuscular HGB Conc 34.9 g/dl (31.0-35.0); Mean Corpuscular Hemoglobin 30.2 pg (27.0-33.0); Mean Corpuscular Volume 86.6 fL (80.0-98.0); Mean Platelet Volume 12.2 fL (9.4-12.3); Monocytes Absolute Auto 1.1 X10*3/uL (0.1-1.2); Monocytes Percent Auto 11.3 % (2-11); Neutrophils Absolute Auto 5.6 x10*3/uL (2.0-8.3); Neutrophils Percent Auto 58.3 % (45-73); Platelet Count 104 X10*3/uL (160-400); Red Blood Count 2.68 X10*6/uL (4.20-5.50); Red Cell Distribution Width 18.6 % (11.0-16.0); White Blood Count 9.6 X10*3/uL (4.8-10.8)
[2021-09-06 15:33] LABS: Anion Gap 16 (12-20); Blood Urea Nitrogen 19 mg/dL (9-16); Carbon Dioxide 23 mmol/L (22-29); Chloride 101 mmol/L (96-108); Creatinine Clr Calc Pharmacy 33.3; Estimated Glomerular Filt Rate 37; Glucose Random 222 mg/dL (60-115); Magnesium 1.3 mg/dL (1.6-2.6); Potassium 3.8 mmol/L (3.3-5.1); Sodium 136 mmol/L (135-145)
[2021-09-06 15:40] LABS: Calcium 7.2 mg/dL (8.4-10.2)
[2021-09-06 16:05] LABS: Erythrocyte Sedimentation Rate 7 MM/HR (0-20)
[2021-09-06] MEDS: Magnesium Sulfate/H2O 2 GM/50 ML PIGGYBACK IV (16:07)
[2021-09-06] MEDS: 0.9 % Sodium Chloride Flush 3 ML SYRINGE IVFLUSH (16:08)
[2021-09-06 16:22] LABS: Fibrinogen 97 MG/DL (259-690)
[2021-09-06 16:45] LABS: Glucose, Whole Blood 180 mg/dL (60-115)
[2021-09-06 17:08] LABS: Appearance Urine HAZY; Color Urine DK YELLOW; Glucose Urine UA NEG (NEG); Leukocyte Esterase Urine NEG (NEG); Nitrite Urine NEG (NEG); PH 5.5 (5.0-8.0); Specific Gravity - Urine >= 1.030 (1.005-1.025); UACC Culture Trigger NO; Urine Blood 3+ (NEG); Urine Ketones NEG (NEG); Urine Protein TRACE MG/DL (NEG-TRACE)
[2021-09-06 17:35] LABS: Partial Thromboplastin Time 53.3 SEC (24.1-38.0)
[2021-09-06 17:39] LABS: WBC Urine 0-2 /HPF (0-4)
--- NOTE | 2021-09-06 17:59 | PC.NURSE ---
S/E [id number]: TMAX 100.2, SBP SOFT. MD AWARE. GUILLORY PLACED FOR URINARY RETENTION. MAGNESIUM REPLACED. 1 UNIT CRYOPRECIPITATE, TOLERATED WELL. LARGE BRUSING FROM BACK TO LEFT SIDE, DOWN TO GROIN AND ON LABIAS. L >R LABIA SWELLING NOTED. MD AND SURGEON AWARE.
[2021-09-06 18:03] LABS: Prothrombin Time 23.3 SEC (9.9-13.0)
[2021-09-06 19:43] LABS: MANUAL DIFF FLAG NO
[2021-09-06 19:51] LABS: Basophils Absolute Auto 0.1 X10*3/uL (0.0-0.2); Basophils Percent Auto 0.8 % (0-2); Eosinophils Absolute Auto 0.3 X10*3/uL (0.0-0.4); Eosinophils Percent Auto 1.9 % (0-4); Imm Gran Abs Auto 0.07 X10*3/uL (0.00-0.03); Imm Gran Pct Auto 0.5 % (0.0-0.4); Lymphocytes Absolute Auto 3.8 X10*3/uL (1.2-4.9); Lymphocytes Percent Auto 27.1 % (20-40); Mean Corpuscular Volume 85.7 fL (80.0-98.0); Mean Platelet Volume 12.6 fL (9.4-12.3); Monocytes Absolute Auto 1.3 X10*3/uL (0.1-1.2); Monocytes Percent Auto 9.3 % (2-11); Neutrophils Absolute Auto 8.4 x10*3/uL (2.0-8.3); Neutrophils Percent Auto 60.4 % (45-73); Platelet Count 101 X10*3/uL (160-400); Red Cell Distribution Width 17.9 % (11.0-16.0); White Blood Count 13.9 X10*3/uL (4.8-10.8)
[2021-09-06 19:53] LABS: INTERNATIONAL NORM RATIO 2.1 (0.9-1.1); Prothrombin Time 23.9 SEC (9.9-13.0)
[2021-09-06 19:55] LABS: Partial Thromboplastin Time 38.1 SEC (24.1-38.0)
[2021-09-06 19:57] LABS: Hemoglobin 6.9 g/dl (12.0-16.0)
[2021-09-06 19:58] LABS: Hematocrit 19.7 % (37.0-47.0)
[2021-09-06] MEDS: Tranexamic Acid 1,000 MG in 0.9 % Sodium Chloride 50 ML 360 MG IV (20:32)
[2021-09-06 21:10] LABS: Glucose, Whole Blood 162 mg/dL (60-115)
[2021-09-06] MEDS: Acetaminophen 325 MG TABLET 650 MG PO (22:10)
[2021-09-07] VITALS (44 sets, daily range): BP systolic 78–164; BP diastolic 37–79; PULSE 68–137; RESP 19–100; TEMP 35–37.9; O2SAT 78–97; BMI 28.0
[2021-09-07 00:06] LABS: Basophils Absolute Auto 0.1 X10*3/uL (0.0-0.2); Basophils Percent Auto 0.5 % (0-2); Eosinophils Absolute Auto 0.2 X10*3/uL (0.0-0.4); Eosinophils Percent Auto 1.3 % (0-4); Imm Gran Abs Auto 0.09 X10*3/uL (0.00-0.03); Imm Gran Pct Auto 0.6 % (0.0-0.4); Lymphocytes Absolute Auto 3.5 X10*3/uL (1.2-4.9); Lymphocytes Percent Auto 24.7 % (20-40); MANUAL DIFF FLAG SCAN; Mean Corpuscular HGB Conc 34.2 g/dl (31.0-35.0); Mean Corpuscular Hemoglobin 29.7 pg (27.0-33.0); Mean Corpuscular Volume 86.9 fL (80.0-98.0); Mean Platelet Volume 12.9 fL (9.4-12.3); Monocytes Absolute Auto 1.7 X10*3/uL (0.1-1.2); Monocytes Percent Auto 11.8 % (2-11); Neutrophils Absolute Auto 8.6 x10*3/uL (2.0-8.3); Neutrophils Percent Auto 61.1 % (45-73); Red Blood Count 1.75 X10*6/uL (4.20-5.50); Red Cell Distribution Width 18.1 % (11.0-16.0); SCAN SMEAR FLAG 1
[2021-09-07 00:07] LABS: Platelet Count 91 X10*3/uL (160-400)
[2021-09-07 00:08] LABS: Hemoglobin 5.2 g/dl (12.0-16.0)
[2021-09-07 00:09] LABS: Hematocrit 15.2 % (37.0-47.0)
[2021-09-07 00:13] LABS: Prothrombin Time 22.8 SEC (9.9-13.0)
[2021-09-07 00:14] LABS: Partial Thromboplastin Time 41.8 SEC (24.1-38.0)
[2021-09-07 00:22] LABS: Anion Gap 19 (12-20); Blood Urea Nitrogen 20 mg/dL (9-16); Calcium 7.9 mg/dL (8.4-10.2); Carbon Dioxide 25 mmol/L (22-29); Chloride 101 mmol/L (96-108); Creatinine Clr Calc Pharmacy 28.1; Estimated Glomerular Filt Rate 31; Glucose Fasting 177 mg/dL (60-99); Potassium 3.5 mmol/L (3.3-5.1); Sodium 141 mmol/L (135-145)
[2021-09-07 00:25] LABS: Fibrinogen 223 MG/DL (259-690)
[2021-09-07 00:33] LABS: SLIDE REVIEW VERIFIED
[2021-09-07] MEDS: 0.9 % Sodium Chloride Flush 3 ML SYRINGE IVFLUSH ×3 (00:47→16:30)
[2021-09-07] MEDS: Tranexamic Acid 1,000 MG in 0.9 % Sodium Chloride 250 ML 32.5 MG IV (00:48)
--- NOTE | 2021-09-07 01:00 | PC.NURSE ---
Assumed care of pt at 2300. Pt awake and following commands. Bp dropped to 80's systolic and levophed drip started. Was at 0.1 mcg/kg/min and Bps improved. Last BP 90's Systolic and per PA Umberto, we went to max rate of 1 mcg/kg/min. Central line placed by Umberto and pCXR done. Pt marysol procedure well. Tranexamic acid drip begun (8hr/bag). Cryoprecipate up at this time.
--- NOTE | 2021-09-07 01:25 | P.PCNCC_ITS ---
Procedures Date of Service Date of Service: 09/06/21 Central Line Placement A quick time-out was made for clarification and proper patient identification, patient was positioned, landmarks were identified, US used to locate a large compressible IJ. The left neck was widely prepped and draped in a full sterile fashion. Ultrasound was used to locate again the left IJ, the vein was cannulated on the 1st pass with an 18 gauge thin needle, dark nonpulsatile blood return was obtained. The wire was threaded, a small incision was made at its base and dilator inserted. A triple-lumen central venous catheter was advanced into the vein up to the hub without problems, wired was removed. Ports had good blood return and flushed x3. The catheter was secured with 3 sutures at 3 sites, a Biopatch and dry sterile dressing were applied. Post procedure chest x-ray showed the line to be in good position without pneumothorax. No bleeding or complications noted.: Consent for Procedure: Elective - informed consent obtained (verbal by the patient in the precense of her RN Francine and RN Forestry Consultant Belkis)
--- NOTE | 2021-09-07 01:27 | P.EN_ITS ---
Event Note Date of Service: 09/07/21 Event Note: Clinical Precedent to this date: Patient history of chronic alcoholism who stopped drinking 2 years ago and has sporadic consumption but without symptoms of withdrawal, celiac disease, pancreatitis, malabsorption, vitamin-D deficiency, hypocalcemia, thyroid and parathyroid disease, insulin-dependent diabetic had presented with complaints of abdominal pain to emergency room yesterday, she was found to have moderate amount of ascites via CT, unfortunately an INR was not checked prior to performing a paracentesis and the patient came back with complaints of worsening abdominal pain as she had initially left AMA.? Upon return, he was noted patient 's INR was 10, she was given 2 units of fresh frozen plasma, her H&H had decreased significantly, patient was given cryoprecipitate, had become hypotensive defer the patient was admitted to the ICU.? She had received 3 units of packed red blood cells earlier. Subjective: Today pt around 10:00 p.m. started to complain of increased intra- abdominal pressure, prior to these I did notice the patient had lower H&H and blood was ordered. She denies nausea vomiting, denies any hematemesis, she did have epistaxis at home, denies any melena or bright red blood. Denies fever but feels warm. Focused Review of systems: As above otherwise negative Objective VS: Blood pressure was as low as 70/50, heart rate 100 to 120 and regular although she has had a couple pauses, respiratory rate 16, O2 sat 88% on 4 L and sick cannula. T-max 100? F. General: Alert oriented appears ill, icteric Skin: Jaundice HEENT: Normocephalic, atraumatic, extraocular movements intact, neck is supple, no lymphadenopathy. Buccal mucosa dry, residual dry blood. Cardiac: Tachycardic clear S1-S2 no murmurs rubs or gallops Pulmonary: Clear to auscultation, no wheezes, rales or rhonchi. Abdomen: Protuberant, caput medusa present, no bowel sounds noted. Distended, hard, tender throughout. No flank hemorrhage is noted. Musculoskeletal: Moving all 4 extremities upon request a major joints, no calf tenderness, no edema. Neurologic: As above, no focal deficits. Vascular: 2+ pulses upper and lower extremities distally. SIGNIFICANT LABORATORY DATA: 7:30 p.m. white count 13.9 H&H of 6.9 and 19.7, platelets 101 from 0104; PT 23.9 INR 2.1 PTT 38 11:59 p.m., H&H dropped to 5.2 and 15.2, platelets 91, BUN 20, creatinine 1.69 (1.42); PT 22.8 INR 2.0, PTT 41.8, fibrinogen 223 from (97) REVIEW OF IMAGES: Repeat CT abdomen pelvis without contrast ABDOMINAL WALL: Anasarca, new from prior. The hematoma in the left internal oblique muscle is increased in size from prior, now measuring 20.3 x 18.2 x 7.0 cm. This now extends inferiorly toward the level of the pubic symphysis and terminates superiorly near the inferior costal margin.? IMPRESSION: 1. A large intramuscular hematoma within the left internal oblique muscle has increased in size from prior, indicative of continued bleeding. 2. Moderate to large volume of intraperitoneal ascites is unchanged from prior. No evidence of intraperitoneal bleeding. 3. Multifocal groundglass and consolidative opacities in the lungs, concerning for viral pneumonia. 4. Marked hepatic steatosis. 5. Dystrophic calcifications in the head of the pancreas are more pronounced as compared to the CT from 2019. These may correspond to the residua of prior pancreatitis, but are not specific. ASSESSMENT AND PLAN: 1. Left InternaL oblique muscle Hematoma increasing in size but without evidence of Retroperitoneal Bleed 2. Severe ascites 3. Alcoholic liver cirrhosis 4. Coagulopathy due to the above 5. Hemorrhagic shock 6. CODE STATUS REMAINS FULL PER PT's wish Initially 2 more units of blood were ordered along with trans and make acid 1000 mg x 2 doses, cryoprecipitate and FFP, platelets although this last cannot be obtained. Patient requires central venous access placement as described above. Levophed; Labs were repeated and this confirmed the ongoing bleeding for her H&H continued to trend down despite of her INR of 2. So far she has had no visible acute bleed but my suspicion is that she may have intra-abdominal bleeding. Renal function has deteriorated therefore CT abdomen pelvis with contrast cannot be performed, I plain CT will be ordered. Intra-abdominal pressure has been measured via the Kitchen catheter and it is 14. Will convey the results of the CT to general surgeon who have consulted for the case, patient may need drainage at bedside or in the OR. 0155 a.m. next case discussed with the surgeon on-call Dr. Pierce who is aware of the whole case and the fact the patient remains coagulopathic, anemic and perhaps losing blood somewhere within the abdomen, his suggest ongoing correction of the INR and to receive phone call back with the results of the CT abdomen pelvis that was ordered. 0300 am findings of the above-mentioned CT were discussed in detail with the surgeon, he recommends continuing to work on the patient's coagulopathy and applying an abdominal binder. He will see the patient in the morning. GI PROPHYLAXIS: PPI DVT PROPHYLAXIS: Pneumatic stockings while in bed Critical care time used for critical evaluation of this patient, diagnosis, treatment and coordination of care, review her records and documentation TOTAL CRITICAL CARE TIME 75 min Patient's care was discussed in detail with Dr. Elias. He is aware of all the above as well as the plan of care for this patient.
--- NOTE | 2021-09-07 02:21 | PC.NURSE ---
Addendum entered by Evelina Fernández RN 09/07/21 03:13: note reflective of 7pm-11pm Original Note: Patient A&O x4, critical results called at 1900 Hgb 6.9/ hct 19.7, reported to PA, 2 units of FFP, 1 unit PRBC, 1 unit of platelets ordered to be given. During 2nd unit of FFP patient began having ectopy on telemetry. HR in the 50's, O2 sats 80's, BP 80's systolic .Patient c/o abdominal discomfort, LS clear. Umberto GERMAN at bedside with this RN. Discussion with patient at that time to verify wish for code status. Patient stated she would like to remain full code. Levophed and Tranexamic acid ordered , TLC to be inserted. Will continue to monitor. Report given to oncoming RN.
[2021-09-07] MEDS: Furosemide 20 MG/2 ML VIAL IVPUSH (02:30)
--- NOTE | 2021-09-07 03:15 | PC.NURSE ---
Pt had pCXR to confirm placement of TLC and this was reviewed by Umberto GERMAN. Line in good placement. Bladder pressure was then done and was 14. Pt received cryoprecipitate and 2 units of pRBC's. BP stable on levophed at 0.26 mcg/kg/min. Urine output better 75ml over past hour and 95 ml before that.
[2021-09-07] MEDS: Phytonadione (Vit K1) 10 MG in 0.9 % Sodium Chloride 50 ML 51 MG IV (03:44)
[2021-09-07 04:04] LABS: ~Hepatitis A Antibody IgM Nonreactive (Nonreactive)
[2021-09-07 04:06] LABS: MANUAL DIFF FLAG NO
[2021-09-07 04:08] LABS: Basophils Absolute Auto 0.1 X10*3/uL (0.0-0.2); Basophils Percent Auto 0.6 % (0-2); Eosinophils Absolute Auto 0.2 X10*3/uL (0.0-0.4); Eosinophils Percent Auto 1.1 % (0-4); Hematocrit 22.7 % (37.0-47.0); Imm Gran Abs Auto 0.11 X10*3/uL (0.00-0.03); Imm Gran Pct Auto 0.8 % (0.0-0.4); Lymphocytes Percent Auto 20.9 % (20-40); Mean Corpuscular HGB Conc 35.2 g/dl (31.0-35.0); Mean Platelet Volume 12.1 fL (9.4-12.3); Monocytes Absolute Auto 1.4 X10*3/uL (0.1-1.2); Neutrophils Absolute Auto 9.5 x10*3/uL (2.0-8.3); Neutrophils Percent Auto 66.6 % (45-73); Red Blood Count 2.58 X10*6/uL (4.20-5.50); Red Cell Distribution Width 15.9 % (11.0-16.0); White Blood Count 14.2 X10*3/uL (4.8-10.8)
[2021-09-07 04:12] LABS: Platelet Count 78 X10*3/uL (160-400)
[2021-09-07 04:15] LABS: INTERNATIONAL NORM RATIO 1.9 (0.9-1.1); Prothrombin Time 22.4 SEC (9.9-13.0)
[2021-09-07 04:17] LABS: Partial Thromboplastin Time 42.1 SEC (24.1-38.0)
[2021-09-07 04:23] LABS: Anion Gap 20 (12-20); Blood Urea Nitrogen 20 mg/dL (9-16); Calcium 7.8 mg/dL (8.4-10.2); Carbon Dioxide 23 mmol/L (22-29); Chloride 101 mmol/L (96-108); Creatinine Clr Calc Pharmacy 29.4; Estimated Glomerular Filt Rate 32; Glucose Random 162 mg/dL (60-115); Potassium 3.2 mmol/L (3.3-5.1); Sodium 141 mmol/L (135-145)
[2021-09-07] MEDS: cefTRIAXone sodium 1 GM in 0.9 % Sodium Chloride 50 ML IV (05:28)
[2021-09-07] MEDS: Pantoprazole Sodium 40 MG in 0.9 % Sodium Chloride 100 ML 400 MG IV (05:34)
[2021-09-07] MEDS: Levothyroxine Sodium 100 MCG VIAL 62.5 MCG IVPUSH (05:43)
[2021-09-07] MEDS: Potassium Chloride/H20 40 MEQ/100 ML PIGGYBACK 100 MEQ IV (05:54)
[2021-09-07] MEDS: KCl 40 mEq in 0.9 % Sodium Chl 40 MEQ/1,000 ML IV.SOLN 150 MEQ IVCONT (05:59)
[2021-09-07 06:05] LABS: Magnesium 1.5 mg/dL (1.6-2.6); Phosphorus 4.5 mg/dL (2.7-4.5)
[2021-09-07 06:40] LABS: VBG HCO3 25 mmol/L (22-26); VBG pCO2 31 mmHg; VBG pH 7.52 (7.32-7.43); VBG pO2 45 mmHg
[2021-09-07 06:57] LABS: Venous Blood Gas Refer to POC result
--- NOTE | 2021-09-07 07:05 | PC.NURSE ---
Ct scan of abd done at 0200. Pt tolerated transfer well. Bp stable on levophed. pt received a total of 2 units LRBC s and 1cryoprecipitate and 2 plasma. Vit K 10 mg IV given. Urine output good, 50-100 ml/hr. Monitor showed SR-ST, 80's-110, rare PVC noted. CVP was 9 and now is 16. Pt started to c/o shortness of breath. Dr Rosenberg in and stats reviewed with him. Last bladder pressure at 0500 was 14. Bipap ordered for shortness of breath. Significant other Jose in to see pt.
[2021-09-07 07:19] LABS: Glucose, Whole Blood 154 mg/dL (60-115)
--- NOTE | 2021-09-07 07:31 | P.PNGS_ITS ---
Subjective Subjective Date of Service: 09/11/21 Interval history: Was hypotensive early this morning, hemoglobin down to [address] scan showed intramuscular hematoma to be larger Transfused Patient says she is hungry and wants to eat She says left flank sore only when she tries to move or when poked Also says this is sore when she takes deep breaths Physical Exam Vital Signs: Vital Signs: Last Vital Signs Temp 99.3 F 09/07/21 07:00 Pulse 98 09/07/21 07:00 Resp 49 H 09/07/21 07:00 BP 137/70 09/07/21 07:00 Pulse Ox 87 L 09/07/21 07:00 Body Mass Index 28.0 Const: Other: Appears a little short of breath but answers questions well Resp: Other: Chemistry 09/06/21 09/06/21 09/06/21 01:08 14:58 23:58 Sodium 137 136 141 Potassium 3.6 3.8 3.5 Carbon Dioxide 27 23 25 BUN 17 H 19 H 20 H Creatinine 1.53 H 1.42 H 1.69 H Calcium 8.2 L 7.2 L D 7.9 L D Phosphorus 09/07/21 04:00 Sodium 141 Potassium 3.2 L Carbon Dioxide 23 BUN 20 H Creatinine 1.61 H Calcium 7.8 L Phosphorus 4.5 Hematology 09/06/21 09/06/21 09/06/21 01:08 04:30 08:56 WBC 10.6 8.9 Hgb 9.6 L 7.0 L* D 5.9 L* Plt Count 267 148 L D 09/06/21 09/06/21 09/06/21 09:47 14:58 19:37 WBC 9.6 13.9 H Hgb 5.2 L* 8.1 L D 6.9 L* Plt Count 104 L D 101 L 09/06/21 09/07/21 23:58 04:00 WBC 14.0 H 14.2 H Hgb 5.2 L* D 8.0 L D Plt Count 91 L 78 L Urinalysis 09/06/21 16:31 Urine Color DK YELLOW Urine Appearance HAZY Urine pH 5.5 Ur Specific Gravit y >= 1.030 H Urine Protein TRACE Urine Glucose (UA) NEG Urine Ketones NEG Urine Blood 3+ H Urine Nitrite NEG Ur Leukocyte Marleni ase NEG Urine RBC 1-4 Urine WBC 0-2 Ur Squamous Epith Cells NONE Hyaline Casts 15-29 Effort & Inspection: able to speak in complete sentences Cardio: Rate: tachycardic Rhythm: regular rhythm GI: Other: Left flank hematoma, tender when deeply palpated, ecchymosis inferior to this in the groin and hip Procedures Date of Service Date of Service: 09/07/21 Progress Note: A&P Assessment and plan (1) Intramuscular hematoma: Status: Acute Assessment and Plan: After paracentesis, in the setting of coagulopathy secondary to chronic liver disease Repeat CT scan shows hematoma to be bigger early this morning, INR was still elevated at 2 Continue to aggressively correct INR Hemoglobin better after transfusion Would not recommend opening up the hematoma this point or draining as this will release tamponade May need evacuation of this hematoma down the line when INR is stable On low dose pressors Will continue to follow Fall Risk Details Current Medications: Current Medications Al Hydroxide/Mg Hydroxide (Magnesium Hydrox/Alum Hydrox 30 Ml Oral.Susp) 30 ml PO Q4H PRN PRN Reason: Heartburn/Nausea Ceftriaxone Sodium 1 gm/ (Sodium Chloride) 50 mls @ 100 mls/hr IV Q24H [facility] Last Infusion: 09/07/21 06:26 Dose: Infused Documented by: Sodium Chloride (Ns) 1,000 mls @ 100 mls/hr IVCONT .Q10H [facility] Last Infusion: 09/07/21 01:51 Dose: Infused Documented by: Pantoprazole Sodium 40 mg/ (Sodium Chloride) 110 mls @ 400 mls/hr IV DAILY@0630 [facility] Last Infusion: 09/07/21 06:22 Dose: Infused Documented by: Phenylephrine HCl 20 mg/ (Sodium Chloride) 252 mls @ 0 mls/hr IVCONT .Q0M [facility]; Protocol Thiamine HCl 100 mg/ Sodium (Chloride) 101 mls @ 202 mls/hr IV DAILY [facility] Last Infusion: 09/06/21 14:43 Dose: Infused Documented by: Norepinephrine Bitartrate (Levophed) 8 mg in 250 mls @ 0 mls/hr IVCONT .Q0M [facility]; Protocol Last Admin: 09/07/21 05:27 Dose: 0.24 mcg/kg/min, 27.23 mls/hr Documented by: Tranexamic Acid 1,000 mg/ (Sodium Chloride) 260 mls @ 32.5 mls/hr IV .Q8H ONE Stop: 09/07/21 08:08 Last Admin: 09/07/21 00:48 Dose: 32.5 mls/hr Documented by: Potassium Chloride/Sodium Chloride () 40 meq in 1,000 mls @ 150 mls/hr IVCONT .Q6H40M [facility] Last Admin: 09/07/21 05:59 Dose: 150 mls/hr Documented by: Potassium Chloride () 20 meq in 100 mls @ 100 mls/hr IV Q1H [facility] Stop: 09/07/21 08:14 Insulin Human Lispro (Insulin Lispro 100 Unit/Ml 3 Ml Vial) 0 unit SUBCUT QIDACHS [facility]; Protocol Last Admin: 09/06/21 21:16 Dose: Not Given Documented by: Levothyroxine Sodium (Levothyroxine Sodium 100 Mcg Vial) 62.5 mcg IVPUSH DAILY@0600 [facility] Last Admin: 09/07/21 05:43 Dose: 62.5 mcg Documented by: Ondansetron HCl (Ondansetron Hcl 4 Mg/2 Ml Vial) 4 mg IVPUSH Q8H PRN PRN Reason: Nausea and Vomiting Pharmacy Consult (Consult Rx Perform Med Rec) 1 each MISCELLANE ONCE PRN PRN Reason: Consult order Sodium Chloride (0.9 % Sodium Chloride Flush 3 Ml Syringe) 3 ml IVFLUSH QSHIFT [facility] Last Admin: 09/07/21 00:47 Dose: 3 ml Documented by: Time Spent With Patient Time: Total time spent is greater than 50% in coordination of care (as documented) at patient's floor/unit and/or counseling patient: Time with patient: 15 - 24 minutes Quality Stroke Does the patient have a stroke diagnosis?: No VTE Prior VTE?: No VTE Risk Level:: Medical - moderate - high VTE Device Contraindication: N/A - Device Ordered VTE Drug Contraindication: Treatment Not Indicated
[2021-09-07] MEDS: Magnesium Sulfate/D5W 1 GM/100 ML PIGGYBACK IV (08:43)
[2021-09-07] MEDS: Potassium Chloride/H20 20 MEQ/100 ML PIGGYBACK 100 MEQ IV ×2 (08:44→10:04)
[2021-09-07] MEDS: Thiamine HCL 100 MG in 0.9 % Sodium Chloride 100 ML 202 MG IV (08:44)
[2021-09-07] MEDS: Insulin Lispro 100 UNIT/ML 3 ML VIAL SUBCUT ×4 (08:44→21:46)
--- NOTE | 2021-09-07 10:09 | MHC.CM.PN ---
Met with pt to discuss d/c planning; pt resides with her long time significant other, Jose who assists her as needed including with transportation. Pt is an insulin dependent diabetic and states she is well versed with management: Discussed VNA services for lab, VS monitoring: I won't need that, I really don't want people coming into our home with me being immunocompromised Educated pt on precautions taken by VNA - pt continues to decline. HCP on file from previous visit: 2 part COVID vax completed spring, Jose to provide transportation home. CM to follow for changes in d/c plan
[2021-09-07 11:04] LABS: MANUAL DIFF FLAG NO
[2021-09-07 11:09] LABS: Basophils Absolute Auto 0.1 X10*3/uL (0.0-0.2); Basophils Percent Auto 0.3 % (0-2); Hematocrit 23.3 % (37.0-47.0); Hemoglobin 8.4 g/dl (12.0-16.0); Imm Gran Abs Auto 0.09 X10*3/uL (0.00-0.03); Imm Gran Pct Auto 0.6 % (0.0-0.4); Lymphocytes Absolute Auto 1.1 X10*3/uL (1.2-4.9); Lymphocytes Percent Auto 7.5 % (20-40); Mean Corpuscular HGB Conc 36.1 g/dl (31.0-35.0); Mean Corpuscular Hemoglobin 31.6 pg (27.0-33.0); Mean Corpuscular Volume 87.6 fL (80.0-98.0); Monocytes Absolute Auto 0.5 X10*3/uL (0.1-1.2); Monocytes Percent Auto 3.1 % (2-11); Neutrophils Absolute Auto 12.7 x10*3/uL (2.0-8.3); Neutrophils Percent Auto 88.5 % (45-73); Platelet Count 86 X10*3/uL (160-400); Red Blood Count 2.66 X10*6/uL (4.20-5.50); Red Cell Distribution Width 16.1 % (11.0-16.0); White Blood Count 14.3 X10*3/uL (4.8-10.8)
[2021-09-07 11:13] LABS: INTERNATIONAL NORM RATIO 2.1 (0.9-1.1); Prothrombin Time 24.7 SEC (9.9-13.0)
[2021-09-07 11:16] LABS: Glucose, Whole Blood 189 mg/dL (60-115)
[2021-09-07 11:28] LABS: Anion Gap 19 (12-20); Blood Urea Nitrogen 21 mg/dL (9-16); Calcium 7.9 mg/dL (8.4-10.2); Carbon Dioxide 21 mmol/L (22-29); Chloride 103 mmol/L (96-108); Creatinine Clr Calc Pharmacy 27.5; Estimated Glomerular Filt Rate 29; Glucose Random 201 mg/dL (60-115); Magnesium 1.9 mg/dL (1.6-2.6); Potassium 4.3 mmol/L (3.3-5.1); Sodium 139 mmol/L (135-145)
[2021-09-07] MEDS: methylPREDNISolone Sod Succ 500 MG in 0.9 % Sodium Chloride 50 ML 66 MG IV (15:43)
--- NOTE | 2021-09-07 15:54 | PM.CCPN ---
Subjective Subjective Date of Service: 09/07/21 Interval History: 60-year-old female chronic alcoholic with cirrhosis and portal hypertension as well as hepatic failure and the manifestations of this are increasingly tense ascites as well as coagulopathy which apparently has gotten suddenly worse and that precipitated this admission she originally presented with shortness of breath and they have it was felt to be the tense ascites and the diaphragm position so she was paracentesis of 2.5 L came back in with a very large abdominal wall hematoma which was ever expanding with significant drop in hemoglobin and definite hypovolemic shock of through which she was very unstable requiring at least 6 units of packed red cells and 3 units of fresh frozen plasma and prothrombin complex was given as well and cryoglobulin was also administered because of hypo fibrinogen E Maribell autoimmune background because of celiac disease and and as well as type 1 diabetes and thyroid disease etc. Profoundly anemic with hemoglobin of 5 with and despite transfusion she revisited hemoglobin of 5 at least 2 more occasions but never bled into the abdomen was all in the abdominal wall She was both anemic and progressively thrombocytopenic Coagulopathy corrected from an INR of 10.5 down to approximately 2 Problem is is that she is increasingly tachypneic and dyspneic with borderline oxygen saturations of about 85% on nasal cannula at 15 L with the evolving bilateral ground-glass infiltrates now with with a the increasing degree of consolidation and unfortunately cannot tolerate BiPAP and I fear that we are potentially coming close it intubation because nubia know if this is the evolution of her outpatient process and potentially even and autoimmune 1 given her autoimmune background but given her immune suppression based on both diabetes and hepatic failure this is easily could be infectious In addition her creatinine is rising in up to 1.79 with marginal urine output and I fear of course that this could be hepatorenal disease and I am switching her support mechanism to vasopressin for both blood pressure and for splanchnic flow The albumin in the a sick fluid is very low with a large gradient from serum to ascites in implying of course that this is likely cirrhotic and bedside echo shows normal LV and RV function no implication of pericardial disease Central venous pressure seems to be averaging at about 10 White count in the a sedate fluid was only 51 without significant polys so I doubt spontaneous bacterial peritonitis Entire viral panel as well as atypical bacterial panel by PCR was negative Critical Care Time (minutes): 75 Physical Exam Vital Signs: Vital Signs: Last Vital Signs Temp 99.1 F 09/07/21 15:00 Pulse 99 09/07/21 15:00 Resp 19 09/07/21 15:00 BP 91/52 L 09/07/21 15:00 Pulse Ox 86 L 09/07/21 15:00 Body Mass Index 28.0 Remains awake and alert and oriented and nonfocal neurologically but very tachypneic with rapid shallow breathing and can barely speak in short phrases Skin covered by extensive ecchymosis most of which is iatrogenic including the large hematoma in the left lateral abdominal wall and a protuberant abdomen from ascites but soft and nontender Chest without adventitious sounds Cardiac function as described before Objective Data Labs CBC & Chem 7: 09/07/21 10:59 09/07/21 10:59 Labs: Laboratory Results - last 24 hr 09/06/21 09/06/21 09/06/21 02:56 08:56 09:47 WBC RBC Hgb Hct MCV MCH MCHC RDW Plt Count MPV Immature Gran % (Auto) Neut % (Auto) Lymph % (Auto) [place] % (Auto) Eos % (Auto) Baso % (Auto) Lymph # (Auto) [place] # (Auto) Eos # (Auto) Baso # (Auto) Abs Immat Gran (auto) Absolute Neuts (auto) Absolute Nucleated RBC Nucleated RBC % (auto) Smear Tech's Comments Smear Path Review SEE NOTE ESR PT INR APTT Fibrinogen VBG pH VBG pCO2 VBG pO2 VBG HCO3 VBG O2 Saturation VBG Base Excess Sodium Potassium Chloride Carbon Dioxide Anion Gap BUN Creatinine Estim Creat Clear Calc Estimated GFR POC Glucose Random Glucose Fasting Glucose Calcium Phosphorus Magnesium Urine Color Urine Appearance Urine pH Ur Specific [place] Urine Protein Urine Glucose (UA) Urine Ketones Urine Blood Urine Nitrite Ur Leukocyte Esterase Urine RBC Urine WBC Ur Squamous Epith Cells Urine Bacteria Hyaline Casts Hepatitis A IgM Ab Nonreactive Blood Type O Positive Antibody Screen NEGATIVE Crossmatch See Detail 09/06/21 09/06/21 09/06/21 14:58 14:58 16:31 WBC RBC Hgb Hct MCV MCH MCHC RDW Plt Count MPV Immature Gran % (Auto) Neut % (Auto) Lymph % (Auto) [place] % (Auto) Eos % (Auto) Baso % (Auto) Lymph # (Auto) [place] # (Auto) Eos # (Auto) Baso # (Auto) Abs Immat Gran (auto) Absolute Neuts (auto) Absolute Nucleated RBC Nucleated RBC % (auto) Smear Tech's Comments Smear Path Review ESR 7 PT 23.3 H INR 2.0 H APTT 53.3 H Fibrinogen 97 L* VBG pH VBG pCO2 VBG pO2 VBG HCO3 VBG O2 Saturation VBG Base Excess Sodium Potassium Chloride Carbon Dioxide Anion Gap BUN Creatinine Estim Creat Clear Calc Estimated GFR POC Glucose Random Glucose Fasting Glucose Calcium Phosphorus Magnesium Urine Color DK YELLOW Urine Appearance HAZY Urine pH 5.5 Ur Specific [place] >= 1.030 H Urine Protein TRACE Urine Glucose (UA) NEG Urine Ketones NEG Urine Blood 3+ H Urine Nitrite NEG Ur Leukocyte Esterase NEG Urine RBC 1-4 Urine WBC 0-2 Ur Squamous Epith Cells NONE Urine Bacteria NONE Hyaline Casts 15-29 Hepatitis A IgM Ab Blood Type Antibody Screen Crossmatch 09/06/21 09/06/21 09/06/21 16:42 19:37 19:37 WBC 13.9 H RBC 2.30 L Hgb 6.9 L* Hct 19.7 L* MCV 85.7 MCH 30.0 MCHC 35.0 RDW 17.9 H Plt Count 101 L MPV 12.6 H Immature Gran % (Auto) 0.5 H Neut % (Auto) 60.4 Lymph % (Auto) 27.1 [place] % (Auto) 9.3 Eos % (Auto) 1.9 Baso % (Auto) 0.8 Lymph # (Auto) 3.8 [place] # (Auto) 1.3 H Eos # (Auto) 0.3 Baso # (Auto) 0.1 Abs Immat Gran (auto) 0.07 H Absolute Neuts (auto) 8.4 H Absolute Nucleated RBC 0.000 Nucleated RBC % (auto) 0.0 Smear Tech's Comments Smear Path Review ESR PT 23.9 H INR 2.1 H APTT 38.1 H D Fibrinogen VBG pH VBG pCO2 VBG pO2 VBG HCO3 VBG O2 Saturation VBG Base Excess Sodium Potassium Chloride Carbon Dioxide Anion Gap BUN Creatinine Estim Creat Clear Calc Estimated GFR POC Glucose 180 H Random Glucose Fasting Glucose Calcium Phosphorus Magnesium Urine Color Urine Appearance Urine pH Ur Specific [place] Urine Protein Urine Glucose (UA) Urine Ketones Urine Blood Urine Nitrite Ur Leukocyte Esterase Urine RBC Urine WBC Ur Squamous Epith Cells Urine Bacteria Hyaline Casts Hepatitis A IgM Ab Blood Type Antibody Screen Crossmatch 09/06/21 09/06/21 09/06/21 21:07 23:58 23:58 WBC RBC Hgb Hct MCV MCH MCHC RDW Plt Count MPV Immature Gran % (Auto) Neut % (Auto) Lymph % (Auto) [place] % (Auto) Eos % (Auto) Baso % (Auto) Lymph # (Auto) [place] # (Auto) Eos # (Auto) Baso # (Auto) Abs Immat Gran (auto) Absolute Neuts (auto) Absolute Nucleated RBC Nucleated RBC % (auto) Smear Tech's Comments Smear Path Review ESR PT INR APTT Fibrinogen 223 L VBG pH VBG pCO2 VBG pO2 VBG HCO3 VBG O2 Saturation VBG Base Excess Sodium 141 Potassium 3.5 Chloride 101 Carbon Dioxide 25 Anion Gap 19 BUN 20 H Creatinine 1.69 H Estim Creat Clear Calc 28.1 Estimated GFR 31 POC Glucose 162 H Random Glucose Fasting Glucose 177 H Calcium 7.9 L D Phosphorus Magnesium Urine Color Urine Appearance Urine pH Ur Specific [place] Urine Protein Urine Glucose (UA) Urine Ketones Urine Blood Urine Nitrite Ur Leukocyte Esterase Urine RBC Urine WBC Ur Squamous Epith Cells Urine Bacteria Hyaline Casts Hepatitis A IgM Ab Blood Type Antibody Screen Crossmatch 09/06/21 09/06/21 09/07/21 23:58 23:59 04:00 WBC 14.0 H 14.2 H RBC 1.75 L D 2.58 L D Hgb 5.2 L* D 8.0 L D Hct 15.2 L* D 22.7 L D MCV 86.9 88.0 MCH 29.7 31.0 MCHC 34.2 35.2 H RDW 18.1 H 15.9 Plt Count 91 L 78 L MPV 12.9 H 12.1 Immature Gran % (Auto) 0.6 H 0.8 H Neut % (Auto) 61.1 66.6 Lymph % (Auto) 24.7 20.9 [place] % (Auto) 11.8 H 10.0 Eos % (Auto) 1.3 1.1 Baso % (Auto) 0.5 0.6 Lymph # (Auto) 3.5 3.0 [place] # (Auto) 1.7 H 1.4 H Eos # (Auto) 0.2 0.2 Baso # (Auto) 0.1 0.1 Abs Immat Gran (auto) 0.09 H 0.11 H Absolute Neuts (auto) 8.6 H 9.5 H Absolute Nucleated RBC 0.000 0.000 Nucleated RBC % (auto) 0.0 0.0 Smear Tech's Comments VERIFIED Smear Path Review ESR PT 22.8 H INR 2.0 H APTT 41.8 H Fibrinogen VBG pH VBG pCO2 VBG pO2 VBG HCO3 VBG O2 Saturation VBG Base Excess Sodium Potassium Chloride Carbon Dioxide Anion Gap BUN Creatinine Estim Creat Clear Calc Estimated GFR POC Glucose Random Glucose Fasting Glucose Calcium Phosphorus Magnesium Urine Color Urine Appearance Urine pH Ur Specific [place] Urine Protein Urine Glucose (UA) Urine Ketones Urine Blood Urine Nitrite Ur Leukocyte Esterase Urine RBC Urine WBC Ur Squamous Epith Cells Urine Bacteria Hyaline Casts Hepatitis A IgM Ab Blood Type Antibody Screen Crossmatch 09/07/21 09/07/21 09/07/21 04:00 04:00 06:33 WBC RBC Hgb Hct MCV MCH MCHC RDW Plt Count MPV Immature Gran % (Auto) Neut % (Auto) Lymph % (Auto) [place] % (Auto) Eos % (Auto) Baso % (Auto) Lymph # (Auto) [place] # (Auto) Eos # (Auto) Baso # (Auto) Abs Immat Gran (auto) Absolute Neuts (auto) Absolute Nucleated RBC Nucleated RBC % (auto) Smear Tech's Comments Smear Path Review ESR PT 22.4 H INR 1.9 H APTT 42.1 H Fibrinogen VBG pH 7.52 H VBG pCO2 31 VBG pO2 45 VBG HCO3 25 VBG O2 Saturation 77.0 VBG Base Excess 3.0 Sodium 141 Potassium 3.2 L Chloride 101 Carbon Dioxide 23 Anion Gap 20 BUN 20 H Creatinine 1.61 H Estim Creat Clear Calc 29.4 Estimated GFR 32 POC Glucose Random Glucose 162 H Fasting Glucose Calcium 7.8 L Phosphorus 4.5 Magnesium 1.5 L Urine Color Urine Appearance Urine pH Ur Specific [place] Urine Protein Urine Glucose (UA) Urine Ketones Urine Blood Urine Nitrite Ur Leukocyte Esterase Urine RBC Urine WBC Ur Squamous Epith Cells Urine Bacteria Hyaline Casts Hepatitis A IgM Ab Blood Type Antibody Screen Crossmatch 09/07/21 09/07/21 09/07/21 07:15 10:59 10:59 WBC 14.3 H RBC 2.66 L Hgb 8.4 L Hct 23.3 L MCV 87.6 MCH 31.6 MCHC 36.1 H RDW 16.1 H Plt Count 86 L MPV 12.0 Immature Gran % (Auto) 0.6 H Neut % (Auto) 88.5 H Lymph % (Auto) 7.5 L [place] % (Auto) 3.1 Eos % (Auto) 0.0 Baso % (Auto) 0.3 Lymph # (Auto) 1.1 L [place] # (Auto) 0.5 Eos # (Auto) 0.0 Baso # (Auto) 0.1 Abs Immat Gran (auto) 0.09 H Absolute Neuts (auto) 12.7 H Absolute Nucleated RBC 0.000 Nucleated RBC % (auto) 0.0 Smear Tech's Comments Smear Path Review ESR PT 24.7 H INR 2.1 H APTT Fibrinogen VBG pH VBG pCO2 VBG pO2 VBG HCO3 VBG O2 Saturation VBG Base Excess Sodium Potassium Chloride Carbon Dioxide Anion Gap BUN Creatinine Estim Creat Clear Calc Estimated GFR POC Glucose 154 H Random Glucose Fasting Glucose Calcium Phosphorus Magnesium Urine Color Urine Appearance Urine pH Ur Specific [place] Urine Protein Urine Glucose (UA) Urine Ketones Urine Blood Urine Nitrite Ur Leukocyte Esterase Urine RBC Urine WBC Ur Squamous Epith Cells Urine Bacteria Hyaline Casts Hepatitis A IgM Ab Blood Type Antibody Screen Crossmatch 09/07/21 09/07/21 10:59 11:13 WBC RBC Hgb Hct MCV MCH MCHC RDW Plt Count MPV Immature Gran % (Auto) Neut % (Auto) Lymph % (Auto) [place] % (Auto) Eos % (Auto) Baso % (Auto) Lymph # (Auto) [place] # (Auto) Eos # (Auto) Baso # (Auto) Abs Immat Gran (auto) Absolute Neuts (auto) Absolute Nucleated RBC Nucleated RBC % (auto) Smear Tech's Comments Smear Path Review ESR PT INR APTT Fibrinogen VBG pH VBG pCO2 VBG pO2 VBG HCO3 VBG O2 Saturation VBG Base Excess Sodium 139 Potassium 4.3 D Chloride 103 Carbon Dioxide 21 L Anion Gap 19 BUN 21 H Creatinine 1.79 H Estim Creat Clear Calc 27.5 Estimated GFR 29 POC Glucose 189 H Random Glucose 201 H Fasting Glucose Calcium 7.9 L Phosphorus Magnesium 1.9 Urine Color Urine Appearance Urine pH Ur Specific [place] Urine Protein Urine Glucose (UA) Urine Ketones Urine Blood Urine Nitrite Ur Leukocyte Esterase Urine RBC Urine WBC Ur Squamous Epith Cells Urine Bacteria Hyaline Casts Hepatitis A IgM Ab Blood Type Antibody Screen Crossmatch Quality Stroke Does the patient have a stroke diagnosis?: No VTE Prior VTE?: No VTE Risk Level:: Medical - moderate - high VTE Device Contraindication: N/A - Device Ordered VTE Drug Contraindication: Treatment Not Indicated Progress Note: A&P Assessment and plan (1) Intramuscular hematoma: Status: Acute (2) Acute kidney failure: Status: Acute (3) Pancytopenia: Status: Acute (4) Hemorrhagic shock: Status: Acute (5) Acute blood loss anemia: Status: Acute (6) Coagulopathy: Status: Acute (7) Liver failure: Status: Acute (8) Abdominal pain: Status: Acute (9) Epistaxis: Status: Acute (10) Hematoma of abdominal wall: Status: Acute (11) Supratherapeutic INR: Status: Acute (12) Pneumonia: Status: Acute (13) Encounter for routine gynecological examination: Status: Acute (14) Breast screening: Status: Acute (15) Encounter for general adult medical examination with abnormal findings: Status: Acute (16) Cirrhosis: Status: Acute (17) Abdominal ascites: Status: Acute (18) HLD (hyperlipidemia): Status: Acute (19) Anemia: Status: Acute (20) HTN (hypertension): Status: Acute (21) History of alcohol abuse: Status: Acute (22) Microcytic anemia: Status: Acute (23) Exocrine pancreatic insufficiency: Status: Acute (24) Celiac disease: Status: Acute (25) Vitamin D deficiency: Status: Acute (26) Osteoporosis: Status: Acute (27) Hyperparathyroidism: Status: Acute (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: Status: Acute (29) Blood in urine: Status: Acute (30) Encounter for general adult medical examination with abnormal findings: Status: Acute (31) Idiopathic osteoporosis: Status: Acute (32) History of celiac disease: Status: Acute (33) Diabetes mellitus type 1: Status: Acute (34) Primary hypothyroidism: Status: Acute (35) ARDS (adult respiratory distress syndrome): Status: Acute (36) Acute hypoxemic respiratory failure: Status: Acute (37) Acute kidney insufficiency: Status: Acute Assessment and Plan: At this point I have asked her to try the nasal high-flow that we will titrate between 40 and 60 liters/minute to bring her oxygen saturations up to at least 90% see how she fares with this the no failing that we might need to consider intubation We have to watch renal function carefully as well as CVP she is significantly positive in terms of intake and output we might need to attempt diuresis if she receives the platelets tonight
--- NOTE | 2021-09-07 16:00 | CA_ITS ---
Transthoracic Echocardiogram Patient (Last, First, Middle): Brenda Taylor M Gender: Female Date of : 1960 Age: 60 Procedure Date: 09/07/2021 Procedure Type: Transthoracic Echocardiogram Location: ICU Height: 152.4 cm Weight: 64.86 kg BSA: 1.62 m2 Heart Rate: bpm BP: 106 / 55 mmHg Railroad Firer: Referring MD: Selin Elias MD Senior Commissary Agent: Jason Auguste MD Symptoms: worsening ascites--r/o pericardial disease Study Quality: Fair ECG Rhythm: Sinus Conclusions: - 1. Normal LV systolic function with impaired relaxation filling pattern 2. Mildly dilated left atrium 3. Moderate mitral annular calcification with mild aortic stenosis noted 4. Mildly elevated right ventricular systolic pressure and probably mildly elevated right atrial pressures 5. No gross pericardial effusion and no clear constrictive physiology noted Findings Left Ventricle Normal left ventricular size, thickness, and systolic function. The visually estimated ejection fraction is between 65-70%. Spectral Doppler is indicative of an impaired relaxation filling pattern. E/E prime ratio is between 8 and 15 consistent with indeterminate filling pressures. Wall Motion Rest Echo Findings The basal inferior segment is hypokinetic. All other scored wall segments showed normal motion. Right Ventricle Normal right ventricular cavity size and systolic function. Atria The left atrium is mildly dilated. Interatrial shunt cannot be excluded. The right atrium is likely dilated. Aortic Valve The aortic valve was not well visualized. There is mild aortic valve stenosis. The peak aortic gradient is 20 mmHg.The mean gradient is 10 mmHg. There is no aortic valve regurgitation. Mitral Valve There is mild anterior and moderate posterior mitral leaflet thickening. There is moderate mitral annular calcification. There is trace mitral valve regurgitation. There is no mitral valve stenosis. Pulmonic Valve The pulmonic valve was not well visualized. Tricuspid Valve Likely normal tricuspid valve structure and function. Mild pulmonary hypertension is present. Great Vessels All visible segments of the aorta are normal in size. The pulmonary artery was not well visualized. Venous The inferior vena cava was not well visualized. The inferior vena cava is mildly dilated and collapses less than 50% with inspiration. Pericardium/Pleural There is no evidence of pericardial effusion. There are no definitive echocardiographic findings of constrictive physiology. Prior Study Comparison No prior study available for comparison. Measurements 2D Linear Measurements IVSd: 1.00 0.6-0.9/0.6-1.0 cm LVIDd: 4.28 3.9-5.3/4.2-5.9 cm LVIDd Index: 2.64 2.4-3.2/2.2-3.1 cm/m2 LVIDs: 2.47 2.0-3.6 cm LVPWd: 0.93 0.7-1.1 cm Ao Root: 2.80 2.1-3.5 cm LA Diam: 3.80 2.7-3.8/3.0-4.0 cm LAIDs Index: 2.35 1.5-2.3 cm/m2 LV Mass: 167.40 67-162/88-224 g LV Mass Index: 103.34 43-95/49-115 g/m2 LVOT Diam: 2.00 3.0+(-)1.3 cm Mitral Valve MV VTI: 0.32 MV Pk Jude: 1.12 MV Mn Jude: 0.76 MV Pk Grad: 5.00 MV Mn Grad: 3.00 MV Pk E: 1.10 MV PK A: 1.15 MV Decel Time: 136.00 E/A: 1.00 E'Lateral: 14.60 E'Medial: 13.80 E/E' Med: 8.00 E/E' Lat: 7.50 PHT: 40.00 MVA PHT: 5.50 MVA Continuity: 2.91 Decel [place]: 8.08 Aortic Valve AoV Pk Jude: 2.23 AoV Mn Jude: 1.41 AoV VTI: 0.45 AoV Pk Grad: 20.00 Aov Mn Grad: 10.00 CINDI Cont.VTI: 2.10 LVOT LVOT Pk Jude: 1.36 LVOT Mn Jude: 0.89 LVOT VTI: 0.30 LVOT Pk Grad: 7.00 LVOT Mn Grad: 4.00 LVOT Diam: 2.00 LVOT Area: 3.14 Diastolic Function MV Pk E: 1.10 MV Pk A: 1.15 E/A: 1.00 E'Medial: 13.80 E/E' Med: 8.00 E' Laterial: 14.60 E/E' Lat: 7.50 Tricuspid Valve TR Pk Jude: 2.87 TR Pk Grad: 33.00 RA Press: 8.00 RVSP: 41.00 Great Vessels Aorta Ao Root-2D: 2.80 2.0-3.7 cm Pulmonary Valve PV Pk Jude: 1.25 Peak PV Grad: 6.00 Updated in Other Vendor System with Status of Final Jason Auguste MD electronically signed on 09/07/2021 4:21:26 PM with status of Final
[2021-09-07 17:05] LABS: MANUAL DIFF FLAG NO
[2021-09-07 17:07] LABS: Basophils Percent Auto 0.1 % (0-2); Hematocrit 21.5 % (37.0-47.0); Hemoglobin 7.6 g/dl (12.0-16.0); Imm Gran Pct Auto 0.7 % (0.0-0.4); Lymphocytes Absolute Auto 1.7 X10*3/uL (1.2-4.9); Lymphocytes Percent Auto 11.2 % (20-40); Mean Corpuscular HGB Conc 35.3 g/dl (31.0-35.0); Mean Corpuscular Hemoglobin 31.4 pg (27.0-33.0); Mean Corpuscular Volume 88.8 fL (80.0-98.0); Mean Platelet Volume 11.8 fL (9.4-12.3); Monocytes Absolute Auto 0.9 X10*3/uL (0.1-1.2); Monocytes Percent Auto 5.7 % (2-11); NRBC Pct Auto 0.2 /100WBC (0.0-0.2); Neutrophils Absolute Auto 12.3 x10*3/uL (2.0-8.3); Neutrophils Percent Auto 82.3 % (45-73); Red Blood Count 2.42 X10*6/uL (4.20-5.50); Red Cell Distribution Width 16.7 % (11.0-16.0); White Blood Count 14.9 X10*3/uL (4.8-10.8)
[2021-09-07 17:08] LABS: Venous Blood Gas Refer to POC result
[2021-09-07 17:10] LABS: VBG Base Excess 2.2 mmol/L; VBG HCO3 25 mmol/L (22-26); VBG pCO2 31 mmHg; VBG pO2 53 mmHg
[2021-09-07 17:19] LABS: Glucose, Whole Blood 232 mg/dL (60-115)
[2021-09-07 17:20] LABS: Platelet Count 77 X10*3/uL (160-400)
[2021-09-07 17:21] LABS: Fibrinogen 251 MG/DL (259-690); INTERNATIONAL NORM RATIO 2.6 (0.9-1.1); Prothrombin Time 30.5 SEC (9.9-13.0)
[2021-09-07 17:22] LABS: Ammonia 93 umol/L (13-55)
[2021-09-07 17:30] LABS: Anion Gap 16 (12-20); Blood Urea Nitrogen 23 mg/dL (9-16); Calcium 7.8 mg/dL (8.4-10.2); Carbon Dioxide 23 mmol/L (22-29); Chloride 104 mmol/L (96-108); Creatinine Clr Calc Pharmacy 27.3; Estimated Glomerular Filt Rate 29; Glucose Random 249 mg/dL (60-115); Magnesium 1.9 mg/dL (1.6-2.6); Phosphorus 3.6 mg/dL (2.7-4.5); Potassium 3.9 mmol/L (3.3-5.1); Sodium 139 mmol/L (135-145)
[2021-09-07 17:50] LABS: TSH reflex Free T4 1.58 uIU/mL (0.32-4.0)
[2021-09-07] MEDS: HYDROmorphone HCl 0.5 MG/0.5 ML SYRINGE IVPUSH ×2 (21:08→23:08)
[2021-09-07 21:35] LABS: Glucose, Whole Blood 263 mg/dL (60-115)
[2021-09-07] MEDS: Lactulose 20 GM/30 ML SOLUTION 30 GM PO (21:40)
[2021-09-07 23:09] LABS: Glucose, Whole Blood 293 mg/dL (60-115)
[2021-09-08] VITALS (10 sets, daily range): BP systolic 99–151; BP diastolic 55–70; PULSE 72–100; RESP 19–44; TEMP 36.3–36.4; O2SAT 76–91
--- NOTE | 2021-09-08 00:28 | W.MHC.ACPN ---
Advanced Care Planning Note Advanced Care Planning Note Discussed with: other (Partner of 35 years and HCP Mr Jose Sanches ) Time spent (in minutes): 75 Narrative: Late entry for conversation held with the above-mentioned patient's partner on 09/07/2021 at 8:10 p.m. I discussed with him very in detail the patient is current clinical scenario, reviewed laboratories and explain to him what they meant to the best of my abilities as well as her current clinical condition and the fact that the patient is no longer able to make any decisions for herself or she appears to be confused. Indeed her ammonia level is 94, however she continues to have intermittent episodes of pain, hypoxia, tachypnea and tachycardia. Based on the current clinical scenario, patient's partner informs that the patient has never really stopped drinking with section of the. From [id number], she has then continued to drink and she has had very basic quality of life although she was still enjoying of activities of daily living. In the past 3 weeks, the patient had a significant decline due to patient's ongoing abdominal distention and ascites which is a new finding, despite these the patient had continued to drink. Patient states that he knows that she would not have liked to be intubated and given her current clinical condition, he is aware that there is no guarantee of keeping her alive if she was to have a cardiac or respiratory arrest. At this point he does not want anything more invasive done including no resuscitation, no intubation and if the patient does deteriorate despite of noninvasive medical care, he would like to be called so that at that point he could consider comfort measures. This conversation was witnessed by the patient's nurse Eli, to whom he rate it rated his desire to make the patient DNR DNI. At this point the code status will be changed. I will order lactulose p.o. versus rectally depending on her ability to swallow and given had ongoing anxiety and respiratory distress, will administer low-dose opioids in the form of Dilaudid for relief. 0400 am patient is complaining of worsened abdominal pain inability to breathe, she is hypoxic on high-flow O2 at 74%, non-rebreather mask was added and she is not able to tolerate this, Dilaudid 0.5 and 1 mg doses were given respectively hold home down but despite of this, her oxygenation is not better. I discussed the above-mentioned scenario with the patient's healthcare proxy and at this point he does not want her to suffer anymore and has decided to make her comfortable. He is aware that her quality of life and prognosis is very poor at this point and he does not want her to go through these in this way. At this point I will start Dilaudid 1 mg every 1/2 hour to an hour as needed for respiratory distress and pain, Ativan Intensol as needed as well as atropine versus scopolamine for secretions. All other care will be stopped. Total amount spent with this patient today 75 minutes All of the above was communicated to my collaborating MD Dr Elias. Problems Discussed (1) Intramuscular hematoma: (2) Acute kidney failure: (3) Pancytopenia: (4) Hemorrhagic shock: (5) Acute blood loss anemia: (6) Coagulopathy: (7) Liver failure: (8) Abdominal pain: (9) Epistaxis: (10) Hematoma of abdominal wall: (11) Supratherapeutic INR: (12) Pneumonia: (13) Encounter for routine gynecological examination: (14) Breast screening: (15) Encounter for general adult medical examination with abnormal findings: (16) Cirrhosis: (17) Abdominal ascites: (18) HLD (hyperlipidemia): (19) Anemia: (20) HTN (hypertension): (21) History of alcohol abuse: (22) Microcytic anemia: (23) Exocrine pancreatic insufficiency: (24) Celiac disease: (25) Vitamin D deficiency: (26) Osteoporosis: (27) Hyperparathyroidism: (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
--- NOTE | 2021-09-08 00:36 | PC.NURSE ---
Addendum entered by Blake Leonard RN 09/08/21 04:52: 0400- Pt due for lactulose, previously passed bedside swallow x2 and successfully tolerated previous doses. On the second sip of lactulose pt aspirated, and began to decompensate. Respiratory rate increased to the 30s'-40s shallow unable to clear secretions. Desat to 70s on max high flow and NRB. Attempted to suction with no effect, PA at bedside, Dilaudid x2 for respiratory control with no effect. PA called healthcare proxy, decision made to make patient comfortable. PRN dilaudid administered O2 removed and vasopressin stopped. Addendum entered by Julia Roach RN 09/08/21 00:42: Patient now intermittently dozing after dilaudid admin. Appears more comfortable. RR 20-30. Satting 85-90% on HFNC 100%/60 LPM. Original Note: Assumed care approx 1914. Patient extremely anxious, removing HFNC, trying to climb oob, intermittently confused. Maxed on HFNC 100%/60LPM. Shallow, rapid breathing w/ RR 35-50. Dilaudid given for WOB. Unable to follow commands or comprehend the gravity of her situation (i.e. needing to keep O2 in place and stay in bed.). Patient states she does not want intubation. PA on phone with HCP, , who made patient DNR/DNI. Conversation witnessed by this RN.
[2021-09-08] MEDS: Furosemide 40 MG/4 ML VIAL IVPUSH (01:32)
[2021-09-08] MEDS: Lactulose 20 GM/30 ML SOLUTION 30 GM PO ×2 (03:14→03:55)
[2021-09-08] MEDS: HYDROmorphone HCl 0.5 MG/0.5 ML SYRINGE IVPUSH ×5 (04:04→05:26)
[2021-09-08] MEDS: LORazepam 2 MG/ML VIAL 0.25 MG IVPUSH ×2 (04:38→05:26)
[2021-09-08] MEDS: Scopolamine 1.5 MG PATCH.TD.3 EAR-BEHIND (05:00)
--- NOTE | 2021-09-08 05:44 | P.DS_ITS ---
DS: Providers Provider Date of Service: 09/08/21 Date of admission: 09/06/21 07:59 Date of discharge: 09/08/21 Primary care physician: Lana Stafford MD Admitting clinician: Selin Elias Attending physician on admission: Selin Elias Consults: 09/06/21 08:02 Consult to Gastroenterology Routine Consulting Provider: Kamaljit Negron Reason for consultation: liver failure Has provider been notified: No Consult to General Surgery Routine Consulting Provider: Chris Pierce Reason for consultation: Hematoma Has provider been notified: Yes Attending physician on discharge: Umberto Conklin Discharging clinician: Umberto Conklin DS: Diagnosis Discharge Diagnosis (1) Intramuscular hematoma: Status: Acute (2) Acute kidney failure: Status: Acute (3) Pancytopenia: Status: Acute (4) Hemorrhagic shock: Status: Acute (5) Acute blood loss anemia: Status: Acute (6) Coagulopathy: Status: Acute (7) Liver failure: Status: Acute (8) Abdominal pain: Status: Acute (9) Epistaxis: Status: Acute (10) Hematoma of abdominal wall: Status: Acute (11) Supratherapeutic INR: Status: Acute (12) Pneumonia: Status: Acute (13) Encounter for routine gynecological examination: Status: Acute (14) Breast screening: Status: Acute (15) Encounter for general adult medical examination with abnormal findings: Status: Acute (16) Cirrhosis: Status: Acute (17) Abdominal ascites: Status: Acute (18) HLD (hyperlipidemia): Status: Acute (19) Anemia: Status: Acute (20) HTN (hypertension): Status: Acute (21) History of alcohol abuse: Status: Acute (22) Microcytic anemia: Status: Acute (23) Exocrine pancreatic insufficiency: Status: Acute (24) Celiac disease: Status: Acute (25) Vitamin D deficiency: Status: Acute (26) Osteoporosis: Status: Acute (27) Hyperparathyroidism: Status: Acute (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 Multi organ failure and hemorrhagic shock 2.? Hypoxic respiratory failure in the setting of ground-glass opacities of unknown etiology 3.? Alcoholic cirrhosis 4.? Ascites 5.? Left Internal Oblique muscle hematoma 6.? Acute kidney injury due to hypo perfusion vs Hepatorenal Syndrome 7.? Severe coagulopathy due to liver disease 8.? Thrombocytopenia due to liver disease 9.? Chronic alcoholism 10.? Anemia of acute on chronic blood loss ? Past Medical history: 1.? Alcoholism 2.? Pancreatitis 3.? Celiac disease 4.? Malabsorption 5.? Vitamin-D deficiency 6.? Hypocalcemia 7.? Hypothyroidism 8.? Parathyroid disease and o's 9.? Insulin-dependent diabetes 10.? Alcohol Induced Liver Cirrhosis HPI / Hospital course: The patient who was a 60 y.o female with the above mentioned PMhx had presented with complaints of abdominal pain to emergency room yesterday, she was found to have moderate amount of ascites via CT, unfortunately an INR was not checked prior to performing a paracentesis and the patient came back with complaints of worsening abdominal pain as she had initially left AMA.? Upon return, she was worked up and was discovered the patient had a hematoma on the left internal oblique muscle measuring 10 x 5 by 11, likely from the paracentesis, she was then also noted to have an INR was 10.5, she was given 2 units of fresh frozen plasma, her H&H had decreased significantly, patient was given cryoprecipitate, had become hypotensive defer the patient was admitted to the ICU.? She received a total of 5 units of packed red blood cells, 2 units of cryoprecipitate, 4 units of fresh frozen plasma, 1 pack of platelets along with vitamin K, Kcentra and Tranexamic acid IV. Despite of all the above efforts, while in the ICU, the patient continued to have issues maintaining a low INR and therefore continue to have a suspected bleeding the left internal oblique muscle.? A repeat CT showed increased size of the hematoma measuring about 20 x 7x 18 cm in diameter.? Surgical team was consulted but given her significant coagulopathy, recommendation for abdominal binder is in management of her coagulopathy was suggested but no surgical intervention or other type of intervention was suggested at that time by Dr. Pierce. Yesterday throughout the day the patient had become confuse, a ammonia level was added which was above 90 and a TSH level return to be normal.? Patient was started on lactulose orally for she was able to take p.o., she took 2 doses of these is better on the tear when she was not longer able to do so.? She only had 1 bowel movement.? Mentally she has no cleared, she was not able to follow my conversation or answer appropriately. Medical care was continued however overnight I did talk to patient's healthcare proxy given my concern for quick deterioration initially he Mr. Jose Sanches had made her DNR and DNI better on 4:00 a.m. this morning, the patient deteriorated even farther developing significant respiratory distress with O2 sat as low as 72% while on high-flow O2 and even with a non-rebreather mask, the patient was not able to overcome these will improve.? 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 All medical care was S stopped and the patient was placed on Dilaudid as needed for respiratory distress and pain, Ativan Intensol and scopolamine with a goal of allowing her to pass to a better life in unknown suffering, humane way. ?All questions were answered by me over the phone for the healthcare proxy, he has peaked a home and is very aware of what the process will be. 0415 am The patient was started on the TRACK MACHINE OPERATOR REPAIRER protocol and made comfortable, the patient , patient shows no signs of life, there is no apical heart rate, no pulse, no respirations and corneal reflex are absent. The patient was pronounced by me at:?? 0542 ?am, partner notified. ? Time Spent with Patient Time attestation: Total time spent providing and/or coordinating discharge services: Discharge coordination time: Greater than 30 minutes Quality: Stroke Does the patient have a stroke diagnosis?: No Physical Exam Vital Signs: Vital Signs: Last Vital Signs Temp 97.5 F 09/08/21 04:00 Pulse 100 09/08/21 04:00 Resp 22 H 09/08/21 05:13 BP 151/70 H 09/08/21 04:00 Pulse Ox 76 L 09/08/21 04:00 Body Mass Index 28.0 DS: Data Data Completed and Pending Labs on day of discharge: Laboratory Results - last 24 hr 09/06/21 09/07/21 09/07/21 02:56 04:00 06:33 WBC RBC Hgb Hct MCV MCH MCHC RDW Plt Count MPV Immature Gran % (Auto) Neut % (Auto) Lymph % (Auto) [place] % (Auto) Eos % (Auto) Baso % (Auto) Lymph # (Auto) [place] # (Auto) Eos # (Auto) Baso # (Auto) Abs Immat Gran (auto) Absolute Neuts (auto) Absolute Nucleated RBC Nucleated RBC % (auto) PT INR Fibrinogen VBG pH 7.52 H VBG pCO2 31 VBG pO2 45 VBG HCO3 25 VBG O2 Saturation 77.0 VBG Base Excess 3.0 Sodium Potassium Chloride Carbon Dioxide Anion Gap BUN Creatinine Estim Creat Clear Calc Estimated GFR POC Glucose Random Glucose Calcium Phosphorus 4.5 Magnesium 1.5 L Ammonia TSH Blood Type O Positive Antibody Screen NEGATIVE Crossmatch See Detail 09/07/21 09/07/21 09/07/21 07:15 10:59 10:59 WBC 14.3 H RBC 2.66 L Hgb 8.4 L Hct 23.3 L MCV 87.6 MCH 31.6 MCHC 36.1 H RDW 16.1 H Plt Count 86 L MPV 12.0 Immature Gran % (Auto) 0.6 H Neut % (Auto) 88.5 H Lymph % (Auto) 7.5 L [place] % (Auto) 3.1 Eos % (Auto) 0.0 Baso % (Auto) 0.3 Lymph # (Auto) 1.1 L [place] # (Auto) 0.5 Eos # (Auto) 0.0 Baso # (Auto) 0.1 Abs Immat Gran (auto) 0.09 H Absolute Neuts (auto) 12.7 H Absolute Nucleated RBC 0.000 Nucleated RBC % (auto) 0.0 PT 24.7 H INR 2.1 H Fibrinogen VBG pH VBG pCO2 VBG pO2 VBG HCO3 VBG O2 Saturation VBG Base Excess Sodium Potassium Chloride Carbon Dioxide Anion Gap BUN Creatinine Estim Creat Clear Calc Estimated GFR POC Glucose 154 H Random Glucose Calcium Phosphorus Magnesium Ammonia TSH Blood Type Antibody Screen Crossmatch 09/07/21 09/07/21 09/07/21 10:59 11:13 17:01 WBC 14.9 H RBC 2.42 L Hgb 7.6 L Hct 21.5 L MCV 88.8 MCH 31.4 MCHC 35.3 H RDW 16.7 H Plt Count 77 L MPV 11.8 Immature Gran % (Auto) 0.7 H Neut % (Auto) 82.3 H Lymph % (Auto) 11.2 L [place] % (Auto) 5.7 Eos % (Auto) 0.0 Baso % (Auto) 0.1 Lymph # (Auto) 1.7 [place] # (Auto) 0.9 Eos # (Auto) 0.0 Baso # (Auto) 0.0 Abs Immat Gran (auto) 0.10 H Absolute Neuts (auto) 12.3 H Absolute Nucleated RBC 0.030 H Nucleated RBC % (auto) 0.2 PT INR Fibrinogen VBG pH VBG pCO2 VBG pO2 VBG HCO3 VBG O2 Saturation VBG Base Excess Sodium 139 Potassium 4.3 D Chloride 103 Carbon Dioxide 21 L Anion Gap 19 BUN 21 H Creatinine 1.79 H Estim Creat Clear Calc 27.5 Estimated GFR 29 POC Glucose 189 H Random Glucose 201 H Calcium 7.9 L Phosphorus Magnesium 1.9 Ammonia TSH Blood Type Antibody Screen Crossmatch 09/07/21 09/07/21 09/07/21 17:01 17:01 17:01 WBC RBC Hgb Hct MCV MCH MCHC RDW Plt Count MPV Immature Gran % (Auto) Neut % (Auto) Lymph % (Auto) [place] % (Auto) Eos % (Auto) Baso % (Auto) Lymph # (Auto) [place] # (Auto) Eos # (Auto) Baso # (Auto) Abs Immat Gran (auto) Absolute Neuts (auto) Absolute Nucleated RBC Nucleated RBC % (auto) PT 30.5 H INR 2.6 H Fibrinogen 251 L VBG pH VBG pCO2 VBG pO2 VBG HCO3 VBG O2 Saturation VBG Base Excess Sodium 139 Potassium 3.9 Chloride 104 Carbon Dioxide 23 Anion Gap 16 BUN 23 H Creatinine 1.80 H Estim Creat Clear Calc 27.3 Estimated GFR 29 POC Glucose Random Glucose 249 H Calcium 7.8 L Phosphorus 3.6 Magnesium 1.9 Ammonia 93 H TSH 1.58 Blood Type Antibody Screen Crossmatch 09/07/21 09/07/21 09/07/21 17:04 17:16 21:30 WBC RBC Hgb Hct MCV MCH MCHC RDW Plt Count MPV Immature Gran % (Auto) Neut % (Auto) Lymph % (Auto) [place] % (Auto) Eos % (Auto) Baso % (Auto) Lymph # (Auto) [place] # (Auto) Eos # (Auto) Baso # (Auto) Abs Immat Gran (auto) Absolute Neuts (auto) Absolute Nucleated RBC Nucleated RBC % (auto) PT INR Fibrinogen VBG pH 7.50 H VBG pCO2 31 VBG pO2 53 VBG HCO3 25 VBG O2 Saturation 83.0 VBG Base Excess 2.2 Sodium Potassium Chloride Carbon Dioxide Anion Gap BUN Creatinine Estim Creat Clear Calc Estimated GFR POC Glucose 232 H 263 H Random Glucose Calcium Phosphorus Magnesium Ammonia TSH Blood Type Antibody Screen Crossmatch 09/07/21 23:03 WBC RBC Hgb Hct MCV MCH MCHC RDW Plt Count MPV Immature Gran % (Auto) Neut % (Auto) Lymph % (Auto) [place] % (Auto) Eos % (Auto) Baso % (Auto) Lymph # (Auto) [place] # (Auto) Eos # (Auto) Baso # (Auto) Abs Immat Gran (auto) Absolute Neuts (auto) Absolute Nucleated RBC Nucleated RBC % (auto) PT INR Fibrinogen VBG pH VBG pCO2 VBG pO2 VBG HCO3 VBG O2 Saturation VBG Base Excess Sodium Potassium Chloride Carbon Dioxide Anion Gap BUN Creatinine Estim Creat Clear Calc Estimated GFR POC Glucose 293 H Random Glucose Calcium Phosphorus Magnesium Ammonia TSH Blood Type Antibody Screen Crossmatch Discharge Plan Discharge Date/Time: 09/08/21 05:42 Patient Disposition: Referrals: Lana Stafford MD [Primary Care Provider] - 1 Week Discharge Medications: No Action (DME) blood-glucose meter [OneTouch Verio Reflect Meter] Misc See Rx Instructions .ROUTE .MEDSUPPLY Qty: 1 RF: 0 (DME) pen needle, diabetic [BD Licha 2nd Gen Pen Needle] 32 gauge x 5/32 needle See Rx Instructions .MEDSUPPLY Qty: 400 RF: 4 Zenpep 25,000-79,000- 105,000 unit capsule,delayed release(DR/EC) 2 cap PO QID PRN (Reason: Pancreatic insufficiency) 30 Days Qty: 240 RF: 3 cholecalciferol (vitamin D3) 1,250 mcg (50,000 unit) capsule 1,250 mcg PO SHEIKH@0900 RF: 0 (DME) insulin pump controller Misc MISCELLANEOUS RF: 0 (DME) OneTouch Verio test strips Strip See Rx Instructions .ROUTE .MEDSUPPLY Qty: 120 RF: 4 calcium citrate 250 mg calcium tablet 500 mg PO BID 30 Days Qty: 120 RF: 6 Tirosint 125 mcg capsule 125 mcg PO DAILY 30 Days Qty: 30 RF: 6 Fiasp U-100 Insulin 100 unit/mL solution See Rx Instructions subcut DAILY 30 Days Qty: 30 RF: 6 Discharge Orders: Discharge Order (Routine); Ordered 09/08/21 Ordered By: Umberto Conklin
[2021-09-08] MEDS: HYDROmorphone HCl 1 MG/ML SYRINGE IVPUSH (05:47)
[2021-09-08 12:51] LABS: Anti Nuclear Antibody Screen NEGATIVE (NEGATIVE)
[2021-09-13 11:56] LABS: Myeloperoxidase Antibody <1.0 AI; Proteinase 3 PR3 Antibodies <1.0 AI
[2021-09-13 15:56] LABS: Smooth Muscle Antibody <20 U (<20)
--- NOTE | 2021-10-12 12:36 | P.CDIR_ITS ---
Retrospective Query PHYSICIAN'S DOCUMENTATION REQUEST Date of Query: 10/12/21 1236 Patient Name: Brenda Taylor Admit Date: 09/06/21 Dear Doctor, A review of the medical record indicates additional documentation may be needed. Please review below and update the documentation accordingly. Clinical Indicators: Risk Factors/Clinical Indicators/Treatments Per MD progress note 09/08/21: patient no longer able to make any decisions or she appears to be confused. Ammonia level 94. continues to have intermittent episodes of pain, hypoxia, tachypnea and tachycardia Based on the above, could you clarify in the Progress Notes which, if any of the following, is the most likely etiology of the confusion/altered mental status? * Encephalopathy - indicate type such as metabolic, toxic, septic, alcoholic, hypertensive, etc. * Acute delirium - indicate known or suspected etiology, such as postoperative, due to narcotics or other drugs, etc. * Acute or subacute confusional state due to (specify known or suspected etiology) * Other etiology (please specify) * Unable to determine Use of terms such as suspected, likely, concern for, or probable (associated with a specific diagnosis that is being evaluated, monitored, or treated as if it exists) are acceptable and can be coded in the inpatient setting, when documented at the time of discharge. Thank you, Jessica Briones RN Extension: [phone] Please use your independent medical judgment in providing your response. THIS QUERY IS PART OF THE PERMANENT MEDICAL RECORD
== END 2021-09-08 06:18 | disposition expired | DRG 813 ==
LOC: HO.ED 09-06 03:56 → HO.EDOVER 09-06 08:04 → HO.ICU 09-06 12:06
PROVIDERS: Physician Assistant Medical; Admitting Provider Internal Medicine; Emergency Provider Emergency Medicine; PCP Internal Medicine; Visit Provider Internal Medicine Cardiovascular Disease
DX: T81.19XA Other postprocedural shock, initial encounter (principal); J96.01 Acute respiratory failure with hypoxia; K76.7 Hepatorenal syndrome; D61.818 Other pancytopenia; K70.40 Alcoholic hepatic failure without coma; J18.9 Pneumonia, unspecified organism; D68.9 Coagulation defect, unspecified; D62 Acute posthemorrhagic anemia; N17.9 Acute kidney failure, unspecified; K76.6 Portal hypertension; M96.841 Postprocedural hematoma of a musculoskeletal structure following other procedure; K70.31 Alcoholic cirrhosis of liver with ascites; K86.81 Exocrine pancreatic insufficiency; E78.5 Hyperlipidemia, unspecified; E03.9 Hypothyroidism, unspecified; K90.0 Celiac disease; E08.65 Diabetes mellitus due to underlying condition with hyperglycemia; F10.21 Alcohol dependence, in remission; I95.9 Hypotension, unspecified; M81.8 Other osteoporosis without current pathological fracture; M79.81 Nontraumatic hematoma of soft tissue; Z20.822 Contact with and (suspected) exposure to COVID-19; Z79.4 Long term (current) use of insulin; Z79.899 Other long term (current) drug therapy; Z66 Do not resuscitate; Z51.5 Encounter for palliative care
CPT/HCPCS: 36415; 36430; 71045; 71250; 74176; 80048; 80076; 80143; 80179; 81001; 81003; 82077; 82140; 82803; 82947; 83735; 84100; 84443; 84484; 85014; 85018; 85025; 85384; 85610; 85652; 85730; 86021; 86038; 86039; 86255; 86704; 86706; 86709; 86803; 86850; 86900; 86901; 86923; 87340; 87633; 87635; 93306; 96365; 96366; 96367; 96375; 96376; 99285; 99291; 99292; J0456; J0696; J1170; J1940; J2060; J2270; J2930; J3411; J3430; J3475; J7168; P9012; P9016; P9017; P9047; P9073